=== PATIENT | female | born 1930 | race Caucasian/White ===

== ENCOUNTER 2016-09-06 16:59 | Inpatient (IN) | payer MEDICARE, OTHER ==
[~2016-09-06] VITALS: Ht 162.6 cm; Wt 56.4 kg
[2016-09-06 17:01] VITALS: BP 183/111; PULSE 99; RESP 16; TEMP 97.5; O2SAT 93
--- NOTE | 2016-09-06 18:18 | PD ---
HPI Chief Complaint: Respiratory Distress Time Seen by Provider: 18:18 Travel History International Travel<30 days: No Contact w/Intl Traveler<30days: No Traveled to known affect area: No History of Present Illness HPI 85-year-old female came to the emergency room with history of shortness of breath that was progressively worsening over past few weeks. Patient is from out of town and currently staying with her daughter who has been taking care of her. 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 As per the daughter she also noticed that her both feet were swollen with the shortness of breath. She took a extra dose of Lasix this morning and when she did not feel better asked her daughter to bring her to the emergency room. No history of fever or chills. No history of chest pain. Patient was hypertensive in triage and on the monitor showed an irregularly irregular rhythm that was in 120s. Patient does not have a history of atrial fibrillation that she knows of. PFSH Past Medical History Narrative Medical List of her past medical history as reviewed from the nursing note. Cardiovascular Problems: Yes Cerebrovascular Accident: Yes Hypertension: Yes ?: Not Past Surgical History Appendectomy: Yes Social History Alcohol Use: No Tobacco Use: No Allergies-Medications (Allergen,Severity, Reaction): Coded Allergies: Morphine (Verified Allergy, Severe, Hives, 09/06/16) Comments List of her allergies reviewed from the nursing note. Reported Meds & Prescriptions Reported Meds & Active Scripts Active Narrative Medication Awaiting for the nurse to do the medical reconciliation. Review of Systems Except as stated in HPI: all other systems reviewed are Neg Physical Exam Narrative GENERAL: Awake, alert, elderly and frail, moderate distress SKIN: Warm and dry. HEAD: Atraumatic. Normocephalic. EYES: Pupils equal and round. No scleral icterus. No injection or drainage. ENT: No nasal bleeding or discharge. Mucous membranes pink and moist. NECK: Trachea midline. No JVD. CARDIOVASCULAR: Regular rate and rhythm. No murmur appreciated. RESPIRATORY: No accessory muscle use. Diminished air entry in the right base GASTROINTESTINAL: Abdomen soft, non-tender, nondistended. Hepatic and splenic margins not palpable. MUSCULOSKELETAL: No obvious deformities. No clubbing. No cyanosis. Bilateral pedal edema. NEUROLOGICAL: Awake and alert. No obvious cranial nerve deficits. Motor grossly within normal limits. Normal speech. PSYCHIATRIC: Appropriate mood and affect; insight and judgment normal. Data Data Last Documented VS Vital Signs Date Time Temp Pulse Resp B/P Pulse Ox O2 Delivery O2 Flow Rate FiO2 09/06/16 19:14 110 22 168/122 95 Room Air 09/06/16 17:01 97.5 Orders Complete Blood Count With Diff (09/06/16 18:31) Comprehensive Metabolic Panel (09/06/16 18:31) B-Type Natriuretic Peptide (09/06/16 18:31) Prothrombin Time / Inr (Pt) (09/06/16 18:31) Magnesium (Mg) (09/06/16 18:31) Troponin I (09/06/16 18:31) Urinalysis - C+S If Indicated (09/06/16 18:31) Iv Access Insert/Monitor (09/06/16 18:31) Electrocardiogram (09/06/16 18:31) Ecg Monitoring (09/06/16 18:31) Oximetry (09/06/16 18:31) Oxygen Administration (09/06/16 18:31) Chest, Single Ap (09/06/16 18:31) Sodium Chloride 0.9% Flush (Ns Flush) (09/06/16 18:45) Furosemide Inj (Lasix Inj) (09/06/16 18:45) Diltiazem Inj (Cardizem Inj) (09/06/16 18:45) Vital Signs (Adult) Q15MX4,Q4H (09/06/16 19:29) Hospital Nurse / Telemetry (09/06/16 19:29) Cardiac Rhythm GARY.Q8H (09/06/16 19:29) ^ Notify Dr: Other (09/06/16 19:29) Diltiazem Inj (Cardizem Inj) (09/06/16 19:30) Admit Order (Ed Use Only) (09/06/16 ) Labs Laboratory Tests Test 09/06/16 18:50 White Blood Count 10.5 TH/MM3 Red Blood Count 5.96 MIL/MM3 Hemoglobin 17.1 GM/DL Hematocrit 51.2 % Mean Corpuscular Volume 86.0 FL Mean Corpuscular Hemoglobin 28.6 PG Mean Corpuscular Hemoglobin 33.3 % Concent Red Cell Distribution Width 16.9 % Platelet Count 202 TH/MM3 Mean Platelet Volume 10.2 FL Neutrophils (%) (Auto) 58.6 % Lymphocytes (%) (Auto) 27.0 % Monocytes (%) (Auto) 10.9 % Eosinophils (%) (Auto) 2.4 % Basophils (%) (Auto) 1.1 % Neutrophils # (Auto) 6.1 TH/MM3 Lymphocytes # (Auto) 2.8 TH/MM3 Monocytes # (Auto) 1.1 TH/MM3 Eosinophils # (Auto) 0.2 TH/MM3 Basophils # (Auto) 0.1 TH/MM3 CBC Comment DIFF FINAL Differential Comment Prothrombin Time 12.1 SEC Prothromb Time International 1.1 RATIO Ratio Urine Color YELLOW Urine Turbidity CLEAR Urine pH 6.5 Urine Specific [place] 1.008 Urine Protein TRACE mg/dL Urine Glucose (UA) NEG mg/dL Urine Ketones NEG mg/dL Urine Occult Blood TRACE Urine Nitrite NEG Urine Bilirubin NEG Urine Urobilinogen 2.0 MG/DL Urine Leukocyte Esterase TRACE Urine RBC 2 /hpf Urine WBC 1 /hpf Urine Squamous Epithelial <1 /hpf Cells Urine Hyaline Casts 1 /lpf Microscopic Urinalysis Comment CULT NOT INDICATED Sodium Level 130 MEQ/L Potassium Level 3.6 MEQ/L Chloride Level 89 MEQ/L Carbon Dioxide Level 30.1 MEQ/L Anion Gap 11 MEQ/L Blood Urea Nitrogen 11 MG/DL Creatinine 0.99 MG/DL Estimat Glomerular Filtration 54 ML/MIN Rate Random Glucose 104 MG/DL Calcium Level 9.0 MG/DL Magnesium Level 1.8 MG/DL Total Bilirubin 2.5 MG/DL Aspartate Amino Transf 35 U/L (AST/SGOT) Alanine Aminotransferase 22 U/L (ALT/SGPT) Alkaline Phosphatase 137 U/L Troponin I 0.04 NG/ML B-Type Natriuretic Peptide 461 PG/ML Total Protein 7.7 GM/DL Albumin 3.8 GM/DL Thyroid Stimulating Hormone 2.730 uIU/ML 3rd Gen [facility] Medical Decision Making Medical Screen Exam Complete: Yes Emergency Medical Condition: Yes Medical Record Reviewed: Yes Differential Diagnosis Congestive heart failure, new onset atrial fibrillation, ACS, pneumonia Narrative Course 7:01 PM awaiting for the blood test results. Patient has been given a dose of IV Lasix. I have explained to the patient and her daughter that the patient will require admission and they agree and understand. Case was signed over to the oncoming ER physician. Procedures EKG Prior to Arrival: Montserrat Jalloh MD Sep 06, 2016 18:18
[2016-09-06] MEDS ORDERED: SODIUM CHLORIDE 0.9% FLUSH 5 ML FLUSH IVF PRN (18:45)
[2016-09-06] MEDS ORDERED: FUROSEMIDE 40 MG/4 ML VIAL IVP ONE (18:45)
[2016-09-06] MEDS ORDERED: DILTIAZEM HCL 25 MG/5 ML VIAL IV ONE (18:45)
[2016-09-06 19:07] LABS: BLOOD, URINE TRACE (NEG); GLUCOSE,URINE NEG (NEG); HYALINE CAST, URINE 1 /lpf (RARE); KETONE, URINE NEG (NEG); NITRITE,URINE NEG (NEG); PH, URINE 6.5 (5.0-8.5); SQUAMOUS EPITHELIAL CELL URINE <1 /hpf (0-5); URINE COLOR YELLOW (YELLW/STRAW)
[2016-09-06 19:11] LABS: COMMENT (UR) CULT NOT INDICATED; CULTURE IF INDICATED CULT NOT INDICATED
[2016-09-06 19:12] LABS: AUTOMATED NEUTROPHIL # 6.1 TH/MM3 (1.8-7.7); BASOPHIL # 0.1 TH/MM3 (0-0.2); BASOPHIL % 1.1 % (0.0-2.0); EOSINOPHIL # 0.2 TH/MM3 (0-0.4); EOSINOPHIL % 2.4 % (0.0-4.0); HEMATOCRIT 51.2 % (35.0-46.0); HEMO FLAGS DIFF FINAL; LYMPHOCYTE # 2.8 TH/MM3 (1.0-4.8); MEAN CORPUSCULAR HEMOGLOBIN 28.6 PG (27.0-34.0); MEAN CORPUSCULAR HGB CONC 33.3 % (32.0-36.0); MONO % 10.9 % (0.0-8.0); NEUT % 58.6 % (16.0-70.0); PLATELET COUNT 202 TH/MM3 (150-450); RED BLOOD COUNT 5.96 MIL/MM3 (4.00-5.30); RED CELL DISTRIBUTION WIDTH 16.9 % (11.6-17.2); WHITE BLOOD COUNT 10.5 TH/MM3 (4.0-11.0)
[2016-09-06 19:14] VITALS: BP 168/122; PULSE 110; RESP 22; O2SAT 95
[2016-09-06 19:26] LABS: INTERNATIONAL NORMALIZED RATIO 1.1 RATIO; PROTHROMBIN TIME - PATIENT 12.1 SEC (9.8-11.6)
--- NOTE | 2016-09-06 19:27 | RADRPT ---
EXAM DATE/TIME: 09/06/2016 18:54 [facility] COMPARISON: No previous studies available for comparison. INDICATIONS : SOB MEDICAL HISTORY : Hypertension. SURGICAL HISTORY : None. ENCOUNTER: Initial ACUITY: 1 day PAIN SCORE: 0/10 LOCATION: chest FINDINGS: Bilateral pleural effusions, right greater than left with associated basilar consolidative changes. C ardiac silhouette is largely obscured. CONCLUSION: Bilateral effusions. Thomas Brennan MD on September 06, 2016 at 19:25 Board Certified Radiologist. This report was verified electronically.
[2016-09-06 19:28] LABS: ANION GAP 11 MEQ/L (5-15); AST (GOT) 35 U/L (15-37); BICARBONATE 30.1 MEQ/L (21.0-32.0); BLOOD UREA NITROGEN 11 MG/DL (7-18); CHLORIDE 89 MEQ/L (98-107); GLOMERULAR FILTRATION RATE 54 ML/MIN (>89); MAGNESIUM 1.8 MG/DL (1.5-2.5); POTASSIUM 3.6 MEQ/L (3.5-5.1); SODIUM (NA) 130 MEQ/L (136-145)
[2016-09-06] MEDS ORDERED: DILTIAZEM INJ 125 MG in SODIUM CHLORIDE 0.9% INJ 100 ML IV SCH (19:30)
[2016-09-06 19:33] LABS: ALKALINE PHOSPHATASE 137 U/L (45-117); ALT (GPT) 22 U/L (10-53); TOTAL BILIRUBIN ADULT 2.5 MG/DL (0.2-1.0)
[2016-09-06] MEDS ORDERED: SODIUM CHLORIDE 0.9% FLUSH 5 ML FLUSH FLUSH PRN (20:00)
[2016-09-06] MEDS ORDERED: POTASSIUM CHLORIDE 25 MEQ EFFERVESCENT TAB PO ONE (20:00)
[2016-09-06] MEDS ORDERED: NALOXONE HCL 0.4 MG/ML AMP IV PRN (20:00)
--- NOTE | 2016-09-06 20:12 | PD ---
Data Data Last Documented VS Vital Signs Date Time Temp Pulse Resp B/P Pulse Ox O2 Delivery O2 Flow Rate FiO2 09/06/16 19:14 110 22 168/122 95 Room Air 09/06/16 17:01 97.5 Orders Complete Blood Count With Diff (09/06/16 18:31) Comprehensive Metabolic Panel (09/06/16 18:31) B-Type Natriuretic Peptide (09/06/16 18:31) Prothrombin Time / Inr (Pt) (09/06/16 18:31) Magnesium (Mg) (09/06/16 18:31) Troponin I (09/06/16 18:31) Urinalysis - C+S If Indicated (09/06/16 18:31) Iv Access Insert/Monitor (09/06/16 18:31) Electrocardiogram (09/06/16 18:31) Ecg Monitoring (09/06/16 18:31) Oximetry (09/06/16 18:31) Oxygen Administration (09/06/16 18:31) Chest, Single Ap (09/06/16 18:31) Sodium Chloride 0.9% Flush (Ns Flush) (09/06/16 18:45) Furosemide Inj (Lasix Inj) (09/06/16 18:45) Diltiazem Inj (Cardizem Inj) (09/06/16 18:45) Vital Signs (Adult) Q15MX4,Q4H (09/06/16 19:29) Webmaster / Telemetry (09/06/16 19:29) Cardiac Rhythm GARY.Q8H (09/06/16 19:29) ^ Notify Dr: Other (09/06/16 19:29) Diltiazem Inj (Cardizem Inj) (09/06/16 19:30) Admit Order (Ed Use Only) (09/06/16 ) Labs Laboratory Tests Test 09/06/16 18:50 White Blood Count 10.5 TH/MM3 Red Blood Count 5.96 MIL/MM3 Hemoglobin 17.1 GM/DL Hematocrit 51.2 % Mean Corpuscular Volume 86.0 FL Mean Corpuscular Hemoglobin 28.6 PG Mean Corpuscular Hemoglobin 33.3 % Concent Red Cell Distribution Width 16.9 % Platelet Count 202 TH/MM3 Mean Platelet Volume 10.2 FL Neutrophils (%) (Auto) 58.6 % Lymphocytes (%) (Auto) 27.0 % Monocytes (%) (Auto) 10.9 % Eosinophils (%) (Auto) 2.4 % Basophils (%) (Auto) 1.1 % Neutrophils # (Auto) 6.1 TH/MM3 Lymphocytes # (Auto) 2.8 TH/MM3 Monocytes # (Auto) 1.1 TH/MM3 Eosinophils # (Auto) 0.2 TH/MM3 Basophils # (Auto) 0.1 TH/MM3 CBC Comment DIFF FINAL Differential Comment Prothrombin Time 12.1 SEC Prothromb Time International 1.1 RATIO Ratio Urine Color YELLOW Urine Turbidity CLEAR Urine pH 6.5 Urine Specific [place] 1.008 Urine Protein TRACE mg/dL Urine Glucose (UA) NEG mg/dL Urine Ketones NEG mg/dL Urine Occult Blood TRACE Urine Nitrite NEG Urine Bilirubin NEG Urine Urobilinogen 2.0 MG/DL Urine Leukocyte Esterase TRACE Urine RBC 2 /hpf Urine WBC 1 /hpf Urine Squamous Epithelial <1 /hpf Cells Urine Hyaline Casts 1 /lpf Microscopic Urinalysis Comment CULT NOT INDICATED Sodium Level 130 MEQ/L Potassium Level 3.6 MEQ/L Chloride Level 89 MEQ/L Carbon Dioxide Level 30.1 MEQ/L Anion Gap 11 MEQ/L Blood Urea Nitrogen 11 MG/DL Creatinine 0.99 MG/DL Estimat Glomerular Filtration 54 ML/MIN Rate Random Glucose 104 MG/DL Calcium Level 9.0 MG/DL Magnesium Level 1.8 MG/DL Total Bilirubin 2.5 MG/DL Aspartate Amino Transf 35 U/L (AST/SGOT) Alanine Aminotransferase 22 U/L (ALT/SGPT) Alkaline Phosphatase 137 U/L Troponin I 0.04 NG/ML B-Type Natriuretic Peptide 461 PG/ML Total Protein 7.7 GM/DL Albumin 3.8 GM/DL [facility] Supervised Visit with REBECCA: No Narrative Course Assumed care patient from Dr. Nur. 85-year-old woman, hypertension hyperlipidemia and a history of stroke, presents with 2-3 days worsening shortness of breath, lower extremity edema, pleural effusions on her chest x-ray, new onset A. fib. Responded well to diltiazem, Lasix. Patient will be admitted for further evaluation and treatment. Diagnosis Primary Impression: Atrial fibrillation with RVR Additional Impression: Volume overload Qualified Code: E87.70 - Hypervolemia, unspecified hypervolemia type Admitting Information Admitting Physician Requests: Admit Bob Chan MD Sep 06, 2016 20:12
[2016-09-06 20:34] VITALS: BP 145/93; PULSE 89; RESP 22; O2SAT 94
[2016-09-06] MEDS ORDERED: POTASSIUM CHLOR 20 MEQ PREMIX 100 ML IV ONE ×2 (21:30→22:15)
--- NOTE | 2016-09-06 21:55 | HHI.HP ---
HPI Service [facility] Primary Care Physician Unknown Admission Diagnosis [place] RVR, volume overload, CHF Diagnoses: (1) Atrial fibrillation with RVR (2) Congestive heart failure (3) Hypertension (4) Lower extremity edema Chief Complaint: shortness of breath and bilateral pedal edema Travel History International Travel<30 Days: No Contact w/Intl Traveler <30 Da: No Traveled to Known Affected Are: No History of Present Illness Mrs. Hood is an 85 year-old female with a past medical history of hypertension and CVA who presented to the ER on 09/06/2016 with progressively worsening shortness of breath with lower extremity edema. The patient's daughter was giving her Lasix (which she frequently does not take because of inconvenience of frequent urination) for the past 2 days with no increase in urination and no decrease in peripheral edema. 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 CXR showed bilateral effusions. Hyponatremia on labs with sodium 130, T. Bili elevated at 2.5, Troponin I 0.04 and BNP 461. The patient is seen in the ER with her daughter at the bedside. She reports that she has been experiencing shortness of breath that is worse with exertion since June but it has been increasing in severity. She denies any accompanying cough or sputum production. She has had no recent long car or airplane rides. She states she has been having nausea when eating and dry heaves. Until about a year ago, she was living independently and able to perform all of her own ADLs. Now she has to live with part of the time with her son ([place]) and part of the time with her daughter (C[place]on) so that they can share the job of caring for their mother. She has had an unintentional weight loss of about 40 pounds since last September that she has recently gained some of that weight back and has had an increase in appetite lately. There is question of some thyroid dysfunction that was being evaluated by her primary care physician in [place] (where her son lives). She has never had a colonoscopy or EGD. 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 Denies CAD, CHF, diabetes mellitus, atrial fibrillation, asthma, COPD, no liver probs, kidney probs, no seizures, no cancer Last stress test stress test "many" years ago but at least > 2 years ago. 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) Respiratory: COMPLAINS OF: Shortness of breath, DENIES: Cough, Sputum production Cardiovascular: COMPLAINS OF: Lower Extremity Edema, Orthopnea, DENIES: Chest pain Gastrointestinal: COMPLAINS OF: Nausea, DENIES: Black stools, Bloody stools, Vomiting Genitourinary: COMPLAINS OF: Urinary frequency (due to lasix), Urinary incontinence (when on lasix) Musculoskeletal: COMPLAINS OF: Muscle aches (calf muscles) Neurologic: COMPLAINS OF: Headache (back of head), Tremor Other 10 point review of systems performed and aside from what is mentioned above or in history of present illness, systems otherwise negative. Past Family Social History Past Medical History Optic CVA - 2 - 3 years ago Intention tremors Hypertension . Past Surgical History Abdominal surgery 1980s Appendectomy . Reported Medications Metoprolol 100 mg BID Diovan/HCT 320/25 mg 1/2 tablet daily Lasix 20 mg daily Clonidine 0.1 mg q8h PRN - takes 1/2 pill at night for anxiety Allergies: Coded Allergies: Morphine (Verified Allergy, Severe, Hives, 09/06/16) Active Ordered Medications Current Medications IV Flush (NS Flush) 2 ml UNSCH PRN IVF FLUSH AFTER USING IV ACCESS; Start 09/06 at 18:45; Stop 09/06/16 at 20:03; Status DC Furosemide (Lasix Inj) 40 mg ONCE ONCE IVP Last administered on 09/06/16 19: 21; Start 09/06/16 at 18:45; Stop 09/06/16 at 18:46; Status DC Diltiazem HCl 15 mg 15 mg ONCE ONCE IV Last administered on 09/06/16 19:17; Start 09/06/16 at 18:45; Stop 09/06/16 at 18:46; Status DC Diltiazem HCl/ Sodium Chloride (Cardizem Inj/NS Inj) 125 ml @ 0 mls/hr TITRATE IV ; Start 09/06/16 at 19:30 IV Flush (NS Flush) 2 ml UNSCH PRN FLUSH FLUSH AFTER USING IV ACCESS; Start at 20:00 IV Flush (NS Flush) 2 ml BID FLUSH ; Start 09/06/16 at 21:00 Naloxone HCl (Narcan Inj) 0.4 mg UNSCH PRN IV SEE LABEL COMMENTS; Start at 20:00 Furosemide (Lasix Inj) 40 mg BID@09,18 IV PUSH ; Start 09/07/16 at 09:00 Potassium Bicarb/ Potassium Chloride (K-Lyte Cl Eff) 50 meq ONCE ONCE PO Last administered on 09/06/16t 20:33; Start 09/06/16 at 20:00; Stop 09/06/16 at 20:02; Status DC Family History Son from complications related to CAD 2-3 years ago . Social History Tobacco: quit smoking age [age] years old Alcohol: none Illicit Drugs: none . Physical Exam Vital Signs Vital Signs Date Time Temp Pulse Resp B/P Pulse Ox O2 Delivery O2 Flow Rate FiO2 09/06/16 20:34 89 22 145/93 94 Room Air 09/06/16 20:23 85 22 94 09/06/16 19:14 110 22 168/122 95 Room Air 09/06/16 17:01 97.5 99 16 183/111 93 Room Air Physical Exam GENERAL: This is a thin, elderly, frail-appearing female patient, in no apparent distress. SKIN: No rashes, ecchymoses or lesions. Cool and dry. HEAD: Atraumatic. Normocephalic. EYES: No scleral icterus. No injection or drainage. ENT: Nose without bleeding, purulent drainage. NECK: Trachea midline. No JVD or lymphadenopathy. CARDIOVASCULAR: Irregularly irregular rate and rhythm without murmurs, gallops, or rubs. Trace lower extremity edema noted. Bilateral calf pain. RESPIRATORY: Breath sounds diminished bibasilarly, equal bilaterally. No wheezes , rales, or rhonchi. GASTROINTESTINAL: Abdomen soft, non-tender, nondistended. No guarding. MUSCULOSKELETAL: Extremities without clubbing, cyanosis. NEUROLOGICAL: Awake and alert. Motor and sensory grossly within normal limits. Normal speech. .. Laboratory Laboratory Tests Test 09/06/16 18:50 White Blood Count 10.5 Red Blood Count 5.96 Hemoglobin 17.1 Hematocrit 51.2 Mean Corpuscular Volume 86.0 Mean Corpuscular Hemoglobin 28.6 Mean Corpuscular Hemoglobin 33.3 Concent Red Cell Distribution Width 16.9 Platelet Count 202 Mean Platelet Volume 10.2 Neutrophils (%) (Auto) 58.6 Lymphocytes (%) (Auto) 27.0 Monocytes (%) (Auto) 10.9 Eosinophils (%) (Auto) 2.4 Basophils (%) (Auto) 1.1 Neutrophils # (Auto) 6.1 Lymphocytes # (Auto) 2.8 Monocytes # (Auto) 1.1 Eosinophils # (Auto) 0.2 Basophils # (Auto) 0.1 CBC Comment DIFF FINAL Differential Comment Prothrombin Time 12.1 Prothromb Time International 1.1 Ratio Urine Color YELLOW Urine Turbidity CLEAR Urine pH 6.5 Urine Specific [place] 1.008 Urine Protein TRACE Urine Glucose (UA) NEG Urine Ketones NEG Urine Occult Blood TRACE Urine Nitrite NEG Urine Bilirubin NEG Urine Urobilinogen 2.0 Urine Leukocyte Esterase TRACE Urine RBC 2 Urine WBC 1 Urine Squamous Epithelial <1 Cells Urine Hyaline Casts 1 Microscopic Urinalysis Comment CULT NOT INDICATED Sodium Level 130 Potassium Level 3.6 Chloride Level 89 Carbon Dioxide Level 30.1 Anion Gap 11 Blood Urea Nitrogen 11 Creatinine 0.99 Estimat Glomerular Filtration 54 Rate Random Glucose 104 Calcium Level 9.0 Magnesium Level 1.8 Total Bilirubin 2.5 Aspartate Amino Transf 35 (AST/SGOT) Alanine Aminotransferase 22 (ALT/SGPT) Alkaline Phosphatase 137 Troponin I 0.04 B-Type Natriuretic Peptide 461 Total Protein 7.7 Albumin 3.8 Result Diagram: 09/06/16184909/06/161849 Imaging Last Impressions Chest X-Ray 09/06/16 1831 Signed Impressions: Service Date/Time: August 18:54 - CONCLUSION: Bilateral effusions. Thomas Brennan MD . Assessment and Plan Problem List: (1) Atrial fibrillation with RVR ICD Code: I48.91 Status: Acute (2) Congestive heart failure ICD Code: I50.9 Status: Acute (3) Hypertension ICD Code: I10 Status: Chronic (4) Lower extremity edema ICD Code: R60.0 Status: Acute (5) Hyponatremia ICD Code: E87.1 Status: Acute (6) Hyperbilirubinemia ICD Code: E80.6 Status: Acute Assessment and Plan Mrs. Hood is an 85 year-old female with a past medical history of hypertension and stroke who presented to the ER on 09/06/2016 with progressively worsening shortness of breath with lower extremity edema. 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 CXR showed bilateral effusions. Hyponatremia on labs with sodium 130, T. Bili elevated at 2.5, Troponin I 0.04 and BNP 461. Atrial fibrillation with RVR, new onset - rate controlled following Cardizem 15 mg IV push in ER - Consult cardiology to evaluate new onset A. fib and new onset CHF - Continuous cardiac telemetry Congestive heart failure, new onset - Troponin I 0.04 - BNP 461 - Check serial EKGs and cardiac enzymes to rule out ACS as contributing factor - Lasix 40 mg IV push twice a day - 2-D echocardiogram - Strict intake and output every shift - Monitor vital signs every 4 hours - Check magnesium level - Heart healthy diet - Physical therapy to prevent debilitation Left lower extremity swelling Calf pain bilaterally - Bilateral doppler u/s of lower extremities to r/o DVT Hypertension - recommended patient to d/c PRN clonidine - continue home diovan/hct - monitor trends in blood pressure readings and adjust medications as indicated Hyponatremia - sodium 130 - Recheck BMP in a.m. and follow trends Hyperbilirubinemia - T. Bili elevated at 2.5 - Recheck in a.m.; follow trends DVT prophylaxis - Lovenox 50 mg therapeutic dose ordered; wait for LE u/s results to determine if therapeutic or prophylactic dose is needed Written by Luba Lima, acting as scribe for Dr. Pike on 09/06/16 at 21:21. All or portions of this note were transcribed by scribe [Luba Lima]. I, Dr. Kirstin Pike personally performed the history, physical exam, and medical decision making; and confirmed the accuracy of the information in the transcribed note. Authenticated by Dr. Kirstin Pike on 09/06/16 at 2121 Discussed Condition With ER physician, patient, and patient's daughter . Physician Certification 2 Midnight Certification Type: Admission for Inpatient Services Order for Inpatient Services The services are ordered in accordance with Medicare regulations or non- Medicare payer requirements, as applicable. In the case of services not specified as inpatient-only, they are appropriately provided as inpatient services in accordance with the 2-midnight benchmark. Estimated LOS (days): 3 days is the estimated time the patient will need to remain in the hospital, assuming treatment plan goals are met and no additional complications. Post-Hospital Plan: Not yet determined Problem Qualifiers (1) Lower extremity edema: Qualified Code: R60.0 - Edema of left lower extremity Luba Lima Sep 06, 2016 21:55 Kirstin Pike MD Oct 17, 2016 07:49
[2016-09-06] MEDS: SODIUM CHLORIDE 0.9% FLUSH 5 ML FLUSH FLUSH SCH (22:39)
[2016-09-06] MEDS ORDERED: FUROSEMIDE 40 MG/4 ML VIAL IV PUSH ONE (23:30)
[2016-09-06] MEDS ORDERED: POTASSIUM CHLORIDE 20 MEQ CONTROLLED RELEASE TAB PO ONE (23:30)
[2016-09-06] MEDS ORDERED: ENOXAPARIN SODIUM 60 MG/0.6 ML SYRINGE SQ ONE (23:45)
[2016-09-07] VITALS (15 sets, daily range): BP systolic 103–181; BP diastolic 63–103; PULSE 78–130; RESP 15–18; TEMP 98.2; O2SAT 91–99
[2016-09-07 05:19] LABS: AUTOMATED NEUTROPHIL # 8.2 TH/MM3 (1.8-7.7); BASOPHIL # 0.1 TH/MM3 (0-0.2); EOSINOPHIL # 0.1 TH/MM3 (0-0.4); HEMATOCRIT 50.9 % (35.0-46.0); HEMO FLAGS DIFF FINAL; LYMPHOCYTE # 2.6 TH/MM3 (1.0-4.8); MEAN CORPUSCULAR HEMOGLOBIN 28.6 PG (27.0-34.0); MEAN CORPUSCULAR HGB CONC 34.1 % (32.0-36.0); MONO % 11.7 % (0.0-8.0); NEUT % 65.3 % (16.0-70.0); PLATELET COUNT 216 TH/MM3 (150-450); RED BLOOD COUNT 6.07 MIL/MM3 (4.00-5.30); RED CELL DISTRIBUTION WIDTH 16.4 % (11.6-17.2); WHITE BLOOD COUNT 12.5 TH/MM3 (4.0-11.0)
[2016-09-07] MEDS ORDERED: ONDANSETRON HCL 4 MG/2 ML VIAL IV PUSH PRN (05:30)
[2016-09-07] MEDS: DILTIAZEM 125 MG/NS 100 ML IV SCH ×2 (05:38)
[2016-09-07 05:55] LABS: ALT (GPT) 24 U/L (10-53); ANION GAP 11 MEQ/L (5-15); AST (GOT) 69 U/L (15-37); BLOOD UREA NITROGEN 8 MG/DL (7-18); CHLORIDE 87 MEQ/L (98-107); GLOMERULAR FILTRATION RATE 66 ML/MIN (>89); SODIUM (NA) 128 MEQ/L (136-145)
[2016-09-07 06:02] LABS: ALKALINE PHOSPHATASE 114 U/L (45-117); CREATINE KINASE 168 U/L (26-192); TOTAL BILIRUBIN ADULT 2.6 MG/DL (0.2-1.0)
[2016-09-07] MEDS ORDERED: MAGNESIUM HYDROXIDE SUSP 30 ML CUP PO PRN (09:00)
[2016-09-07] MEDS ORDERED: CALCIUM CARBONATE 500 MG CHEWABLE TAB CHEW PRN (09:00)
[2016-09-07] MEDS ORDERED: DOCUSATE SODIUM 50 MG/SENNA 8.6 MG TAB PO PRN (09:00)
[2016-09-07] MEDS ORDERED: ACETAMINOPHEN 325 MG TAB PO PRN (09:00)
[2016-09-07] MEDS ORDERED: ALUMINUM/MAGNESIUM/SIMETH 30 ML CUP PO PRN (09:00)
[2016-09-07] MEDS ORDERED: FUROSEMIDE 40 MG/4 ML VIAL IV PUSH SCH (09:00)
[2016-09-07] MEDS: SODIUM CHLORIDE 0.9% FLUSH 5 ML FLUSH FLUSH SCH ×2 (09:00→21:00)
[2016-09-07] MEDS ORDERED: DOCUSATE SODIUM 100 MG CAP PO PRN (09:00)
--- NOTE | 2016-09-07 09:12 | PD.CONS ---
HPI Service CV Consult Requested By Reason for Consult a-fib Primary Care Physician Unknown History of Present Illness Here with CVA and hypertension for lower extremity edema x 4 days. She denies any chest pain, shortness of breath or palpitations. Here she was found to have a-fib RVR. Other cardiac work up has been negative (Darius Jones) Review of Systems Consitutional: DENIES: Fatigue, Fever, Chills, Weight gain, Weight loss Eyes: DENIES: Amaurosis Fugax, Change in vision HEENT: DENIES: Lightheadedness, Change in hearing Respiratory: DENIES: See HPI, Cough, Snoring, Shortness of breath, Wheezing, Sputum production Cardiovascular: COMPLAINS OF: See HPI Gastrointestinal: DENIES: Nausea, Vomiting, Change in bowel habits, Reflux, Bloody stools, Melena Genitourinary: DENIES: Urinary incontinence, Difficulty voiding Integumentary: DENIES: Rash Neurologic: DENIES: Tingling or numbness, Memory problems, Poor Balance, Stroke symptoms Musculoskeletal: DENIES: Joint pain, Muscle pain, Limited range of motion, Back pain Psychiatric: DENIES: Anxiety, Depression, Sleep disturbances Hematologic: DENIES: Bruising tendencies, Bleeding tendencies Endocrine: DENIES: Weight gain, Weight loss, Thyroid disease (Darius Jones ) Past Family Social History Allergies: Coded Allergies: Morphine (Verified Allergy, Severe, Hives, 09/06/16) Past Medical History see HPI intention tremors Past Surgical History Abdominal surgery 1980s Appendectomy Reported Medications Metoprolol 100 mg BID Diovan/HCT 320/25 mg 1/2 tablet daily Lasix 20 mg daily Clonidine 0.1 mg q8h PRN - takes 1/2 pill at night for anxiet Family History noncontributory Social History denies smoking, alcohol or substance abuse (Darius Jones) Physical Exam Vital Signs Vital Signs Date Time Temp Pulse Resp B/P Pulse Ox O2 Delivery O2 Flow Rate FiO2 09/07/16 08:48 102 18 132/77 99 Room Air 09/07/16 07:01 101 18 168/98 96 Room Air 09/07/16 06:30 105 16 133/84 96 Nasal Cannula 2 09/07/16 06:15 111 15 155/85 96 Nasal Cannula 2 09/07/16 05:46 95 Nasal Cannula 2 09/07/16 05:45 120 16 152/75 91 Room Air 09/07/16 05:40 122 16 161/74 95 Room Air 09/07/16 05:00 130 18 181/103 95 Room Air 09/07/16 02:50 109 09/07/16 02:49 120 16 169/95 96 Room Air 09/07/16 00:07 112 18 145/92 95 Room Air 09/06/16 20:34 89 22 145/93 94 Room Air 09/06/16 20:23 85 22 94 09/06/16 19:14 110 22 168/122 95 Room Air 09/06/16 17:01 97.5 99 16 183/111 93 Room Air Physical Exam GENERAL: Well-nourished, well-developed patient in no apparent distress. NECK: No JVD. No carotid bruit. CARDIOVASCULAR: IR IR. S1/S2 no murmur, rub, or gallop. RESPIRATORY: No accessory muscle use. Clear to auscultation. Breath sounds equal bilaterally. GASTROINTESTINAL: Abdomen soft, non-tender, nondistended. MUSCULOSKELETAL: Extremities without clubbing, cyanosis, or edema. Laboratory Laboratory Tests Test 09/06/16 09/07/16 09/07/16 18:50 01:15 05:00 White Blood Count 10.5 12.5 Red Blood Count 5.96 6.07 Hemoglobin 17.1 17.4 Hematocrit 51.2 50.9 Mean Corpuscular Volume 86.0 84.0 Mean Corpuscular Hemoglobin 28.6 28.6 Mean Corpuscular Hemoglobin 33.3 34.1 Concent Red Cell Distribution Width 16.9 16.4 Platelet Count 202 216 Mean Platelet Volume 10.2 10.3 Neutrophils (%) (Auto) 58.6 65.3 Lymphocytes (%) (Auto) 27.0 21.0 Monocytes (%) (Auto) 10.9 11.7 Eosinophils (%) (Auto) 2.4 1.0 Basophils (%) (Auto) 1.1 1.0 Neutrophils # (Auto) 6.1 8.2 Lymphocytes # (Auto) 2.8 2.6 Monocytes # (Auto) 1.1 1.5 Eosinophils # (Auto) 0.2 0.1 Basophils # (Auto) 0.1 0.1 CBC Comment DIFF FINAL DIFF FINAL Differential Comment Prothrombin Time 12.1 Prothromb Time International 1.1 Ratio Urine Color YELLOW Urine Turbidity CLEAR Urine pH 6.5 Urine Specific [place] 1.008 Urine Protein TRACE Urine Glucose (UA) NEG Urine Ketones NEG Urine Occult Blood TRACE Urine Nitrite NEG Urine Bilirubin NEG Urine Urobilinogen 2.0 Urine Leukocyte Esterase TRACE Urine RBC 2 Urine WBC 1 Urine Squamous Epithelial <1 Cells Urine Hyaline Casts 1 Microscopic Urinalysis Comment CULT NOT INDICATED Sodium Level 130 128 Potassium Level 3.6 5.0 Chloride Level 89 87 Carbon Dioxide Level 30.1 30.0 Anion Gap 11 11 Blood Urea Nitrogen 11 8 Creatinine 0.99 0.83 Estimat Glomerular Filtration 54 66 Rate Random Glucose 104 101 Calcium Level 9.0 8.9 Magnesium Level 1.8 Total Bilirubin 2.5 2.6 Aspartate Amino Transf 35 69 (AST/SGOT) Alanine Aminotransferase 22 24 (ALT/SGPT) Alkaline Phosphatase 137 114 Troponin I 0.04 0.04 0.04 B-Type Natriuretic Peptide 461 Total Protein 7.7 7.3 Albumin 3.8 3.6 Thyroid Stimulating Hormone 2.730 3rd Gen Total Creatine Kinase 98 168 (Darius Jones) Result Diagram: 09/07/16 0500 09/07/16 0500 Assessment and Plan Problem List: (1) Atrial fibrillation with RVR (2) Congestive heart failure (3) Hyponatremia (4) Lower extremity edema Assessment and Plan From a CV standpoint we will embark on a heart rate control strategy. The onset of her a-fib is uncertain in the face of her being asymptomatic in this regard. We will get 2D echo and start Savaysa (Her CHADS-VASC is 7) Her Sodium is low and also of uncertain etiology. There is a right pleural effusion, bu not much in the way of pulmonary edema. Defer to hospitalist (Darius Jones) Assessment and Plan afib rvr - cardizem q6. convert to long acting when rate controlled. start anticoagulation. check 2d echo. hyponatremia - on lasix and HCTZ. hold diuretics for now. intravascularly appears close to euvolemic. No JVD. minimal edema. (Jarad,Bob Rasheed MD) Problem Qualifiers (1) Lower extremity edema: Qualified Code: R60.0 - Edema of left lower extremity Darius Jones Sep 07, 2016 09:12 Bob Abraham MD Sep 07, 2016 09:40
[2016-09-07] MEDS ORDERED: METO100T PO (09:23)
[2016-09-07] MEDS ORDERED: VALS160T4 PO (09:26)
[2016-09-07] MEDS ORDERED: FURO1TAB62 PO (09:26)
[2016-09-07] MEDS ORDERED: CLON0.1T PO (09:26)
--- NOTE | 2016-09-07 09:34 | HHI.PR ---
Subjective Remarks Follow-up heart failure. Improving shortness of breath. Denies headache or dizziness. Patient takes Lopressor 100 mg twice a day, Lasix 20 mg daily and valsartan/hydrochloric acid 320/25 1/2 a pill a day. Discussed with cardiology and RN who will update medication list Objective Vitals Vital Signs Date Time Temp Pulse Resp B/P Pulse Ox O2 Delivery O2 Flow Rate FiO2 09/07/16 08:48 102 18 132/77 99 Room Air 09/07/16 07:01 101 18 168/98 96 Room Air 09/07/16 06:30 105 16 133/84 96 Nasal Cannula 2 09/07/16 06:15 111 15 155/85 96 Nasal Cannula 2 09/07/16 05:46 95 Nasal Cannula 2 09/07/16 05:45 120 16 152/75 91 Room Air 09/07/16 05:40 122 16 161/74 95 Room Air 09/07/16 05:00 130 18 181/103 95 Room Air 09/07/16 02:50 109 09/07/16 02:49 120 16 169/95 96 Room Air 09/07/16 00:07 112 18 145/92 95 Room Air 09/06/16 20:34 89 22 145/93 94 Room Air 09/06/16 20:23 85 22 94 09/06/16 19:14 110 22 168/122 95 Room Air 09/06/16 17:01 97.5 99 16 183/111 93 Room Air I/O 09/06/16 09/06/16 09/06/16 09/07/16 09/07/16 09/07/16 07:00 15:00 23:00 07:00 15:00 23:00 Output Total 1400 ml Balance -1400 ml Output Urine Total 1400 ml Result Diagram: 09/07/16 0500 09/07/16 0500 Imaging Last Impressions Chest X-Ray 09/06/16 1831 Signed Impressions: Service Date/Time: August 18:54 - CONCLUSION: Bilateral effusions. Thomas Brennan MD Objective Remarks GENERAL: This is a thin, elderly, frail-appearing female patient, in no apparent distress. SKIN: No rashes, ecchymoses or lesions. Cool and dry. HEAD: Atraumatic. Normocephalic. EYES: No scleral icterus. No injection or drainage. ENT: Nose without bleeding, purulent drainage. NECK: Trachea midline. No JVD or lymphadenopathy. CARDIOVASCULAR: Irregularly irregular rate and rhythm without murmurs, gallops, or rubs. Bilateral extremity pitting edema noted. RESPIRATORY: Breath sounds diminished bibasilarly, equal bilaterally. No wheezes , rales but with rhonchi left lung. GASTROINTESTINAL: Abdomen soft, non-tender, nondistended. No guarding. MUSCULOSKELETAL: Extremities without clubbing, cyanosis. NEUROLOGICAL: Awake and alert. Motor and sensory grossly within normal limits. Normal speech. Procedures None A/P Problem List: (1) Atrial fibrillation with RVR ICD Code: I48.91 Status: Acute (2) Congestive heart failure ICD Code: I50.9 Status: Acute (3) Hypertension ICD Code: I10 Status: Chronic (4) Lower extremity edema ICD Code: R60.0 Status: Acute (5) Hyponatremia ICD Code: E87.1 Status: Acute (6) Hyperbilirubinemia ICD Code: E80.6 Status: Acute Assessment and Plan Mrs. Hood is an 85 year-old female with a past medical history of hypertension and stroke who presented to the ER on 09/06/2016 with progressively worsening shortness of breath with lower extremity edema. 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 CXR showed bilateral effusions. Hyponatremia on labs with sodium 130, T. Bili elevated at 2.5, Troponin I 0.04 and BNP 461. Atrial fibrillation with RVR, new onset - rate controlled following Cardizem 15 mg IV push in ER. Wean and discontinue Cardizem drip keep heart rate less than 100 and, continue Cardizem by mouth and start anticoagulation patient with [id number] score of 7. Patient agrees - Consulted cardiology follow-up echocardiogram - Continuous cardiac telemetry Congestive heart failure, new onset . Improving - Troponin I 0.04 - BNP 461 - Check serial EKGs and cardiac enzymes to rule out ACS as contributing factor - Lasix 40 mg IV push twice a day - 2-D echocardiogram - Strict intake and output every shift - Monitor vital signs every 4 hours - Heart healthy diet - Physical therapy to prevent debilitation Left lower extremity swelling Calf pain bilaterally - Bilateral doppler u/s of lower extremities to r/o DVT Hypertension - recommended patient to d/c PRN clonidine -Restart home medications once confirmed - monitor trends in blood pressure readings and adjust medications as indicated Hyponatremia likely related to her Court eyes and - sodium 128 - Recheck BMP in a.m. and follow trends Hyperbilirubinemia - T. Bili elevated at 2.5 - Recheck in a.m.; follow trends Leukocytosis likely reactive. Repeat CBC in the morning DVT prophylaxis -Continue Savaysa Problem Qualifiers (1) Lower extremity edema: Qualified Code: R60.0 - Edema of left lower extremity Santo Kate MD Sep 07, 2016 09:34
[2016-09-07] MEDS ORDERED: EDOXABAN TOSYLATE 30 MG TAB PO SCH (10:00)
--- NOTE | 2016-09-07 11:34 | PD.CONS ---
Consult Service Palliative Care Consult Requested By Nancy CLARK . Primary Care Physician Unknown . Reason for Consultation a. To assist with evaluation and management of symptoms including: Dyspnea , fatigue b. To assist medical decision maker(s) with: better understanding of current medical conditions; weighing benefits/burdens of medical treatment options; making medical treatment decisions. . HPI History of Present Illness This 85-year-old female, with a past history of ocular stroke, carotid artery disease, and hypertension, has been declining slowly over the last several months. She has become weaker, has been using a walker since June 2016, has lost 20 pounds, and now has had some intermittent dyspnea over the past few weeks. The dyspnea worsened, and she presented to the emergency department on , where she was found to be hypertensive and tachycardic. Findings in the emergency department included: * Alert, mild dyspnea, leg edema * Atrial fibrillation with rapid ventricular response * Temp 97.5, pulse 99, respirations 16, blood pressure 183/111, oxygen saturation 93% on room air * White count 10.5, hemoglobin 17.1 * Sodium 1:30, creatinine 0.99, albumin 3.8 * Bilirubin 2.5, AST 35, ALT 22 * BNP 461, troponin 0.04 * Chest x-ray with bilateral pleural effusions, right greater than left The patient was admitted to the hospital, and diuresis was initiated. She has just had leg Doppler studies done, and is scheduled for cardiology evaluation including echocardiogram. She feels less dyspneic this morning, and her blood pressure is improved at 132/77. However, her sodium is a little lower at 128, and her bilirubin is 2.6, AST up to 69. Palliative Care was consulted to assist with symptom management, and to explore with the patient and her family the prognosis, as well as the benefits and burdens of the various treatment options. . Function/Cognitive Trajectory The patient has been declining over the past year. She was living completely independently a year ago, but became weaker over the summer, and by June 2016 has had to use a walker for ambulation. She gets dyspneic with minimal exertion, her appetite is decreased, and she has lost about 20 pounds over the last year. She has not had any falls, and she has not had problems with confusion or disorientation. . Review of Systems Constitutional: COMPLAINS OF: Fatigue, Weight loss Endocrine: DENIES: Polyuria Eyes: COMPLAINS OF: Vision loss (blind in the right eye, decreased vision in the left) Ears, nose, mouth, throat: DENIES: Epistaxis Cardiovascular: COMPLAINS OF: Dyspnea on Exertion, Lower Extremity Edema, DENIES: Chest pain, Palpitations, Syncope Gastrointestinal: DENIES: Bloody stools, Diarrhea, Vomiting Genitourinary: DENIES: Hematuria Musculoskeletal: DENIES: Back pain, Neck pain Integumentary: DENIES: Rash Hematologic/Lymphatics: DENIES: Bruising Immunologic/Allergic: DENIES: Urticaria Neurologic: DENIES: Headache, Localized weakness, Seizures Psychiatric: DENIES: Confusion, Hallucinations Past Family Social History Coded Allergies: Morphine (Verified Allergy, Severe, Hives, 09/06/16) Past Medical History * Congestive heart failure, new onset * Atrial fibrillation with rapid ventricular response, new onset * Hyponatremia * Hypertension * 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 . Past Surgical History * Abdominal surgery 1980s * Appendectomy . Reported Medications Metoprolol 100 mg BID Diovan/HCT 320/25 mg 1/2 tablet daily Lasix 20 mg daily Clonidine 0.1 mg q8h PRN . Current Medications Medications (Trade) Dose Ordered Sig/Crescencio Route Start Time Stop Time Status Last Admin (NS Flush) 2 ml UNSCH PRN FLUSH 09/06/16 20:00 (NS Flush) 2 ml BID FLUSH 09/06/16 21:00 09/07/16 09:00 (Narcan Inj) 0.4 mg UNSCH PRN IV 09/06/16 20:00 Ondansetron HCl 4 mg 4 mg Q6H PRN IV PUSH 09/07/16 05:30 09/07/16 05:39 (Cardizem Inj/NS Inj) 125 ml @ 0 mls/hr TITRATE IV 09/07/16 05:45 09/07/16 05:38 (Tylenol) 650 mg Q4H PRN PO 09/07/16 09:00 (Colace) 100 mg BID PRN PO 09/07/16 09:00 (Kim-Colace) 1 tab BID PRN PO 09/07/16 09:00 (Milk Of Magnesia Liq) 30 ml DAILY PRN PO 09/07/16 09:00 (Mag-Al Plus Susp Liq) 30 ml Q6H PRN PO 09/07/16 09:00 (Tums Chew) 1,000 mg TID PRN CHEW 09/07/16 09:00 (Savaysa) 30 mg DAILY PO 09/07/16 10:00 09/07/16 10:00 (Cardizem) 60 mg QID PO 09/07/16 13:00 Family History Son from complications related to CAD 2-3 years ago, and daughter at age 45 of a cerebral aneurysm. The patient's mother at age 92. . Substance Use Tobacco: None. Alcohol: None. Prescription med abuse: None. Illicits: None. . Psychosocial History The patient was born in [place], but has lived in [place] for 50 years. She has been twice, and had 2 sons (one is ) and 2 daughters (one is ) from her first marriage, and then had 2 sons and a daughter from her second marriage. She is still legally to her second , but they have reportedly been for many years, although "still friends." She lived alone and independently in her home for many years until she began declining last year. In the last few months, she has lived primarily with her son Wilmar in [facility], and part of the time here with her daughter Arlin. 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 .. Spiritual/Cultural Factors Spirituality is very important to the patient, and her background is Sikh. She does desire a visit from the [employer] barista, and a consult has been placed. . Living Will: Never completed Health Care Surrogate: Never completed Durable Power of Wood Machine Carver: Never completed Health Care Surrogate(s): At the time of the initial consultation, the patient is naming son Wilmar and daughter Arlin has healthcare surrogates. . Today's verbally stated goals: The patient wants to continue aggressive care at this time. She would allow resuscitation if there was a reasonable chance that she would be able to get off the ventilator and be able to "be at home, eat, and watch TV." If she was on a ventilator and her goals would not be achievable, she would want to be withdrawn from life support and allowed to peacefully. . Family/friends goals: The patient's daughter Arlin supports the patient's goals. . Ethical and Legal Issues There are no ethical issues that would impact her care or decision-making at this time. The patient has capacity for decision making. She has named son Wilmar and daughter Arlin as HCS. . Physical Exam Vital Signs Date Time Temp Pulse Resp B/P Pulse Ox O2 Delivery O2 Flow Rate FiO2 09/07/16 08:48 102 18 132/77 99 Room Air 09/07/16 07:01 101 18 168/98 96 Room Air 09/07/16 06:30 105 16 133/84 96 Nasal Cannula 2 09/07/16 06:15 111 15 155/85 96 Nasal Cannula 2 09/07/16 05:46 95 Nasal Cannula 2 09/07/16 05:45 120 16 152/75 91 Room Air 09/07/16 05:40 122 16 161/74 95 Room Air 09/07/16 05:00 130 18 181/103 95 Room Air 09/07/16 02:50 109 09/07/16 02:49 120 16 169/95 96 Room Air 09/07/16 00:07 112 18 145/92 95 Room Air 09/06/16 20:34 89 22 145/93 94 Room Air 09/06/16 20:23 85 22 94 09/06/16 19:14 110 22 168/122 95 Room Air 09/06/16 17:01 97.5 99 16 183/111 93 Room Air 09/06/16 09/07/16 19:00 07:00 Output Total 1400 ml Balance -1400 ml Output Urine Total 1400 ml Exam CONSTITUTIONAL/GENERAL: This is an elderly, frail patient, in no apparent distress. TUBES/LINES/DRAINS: Peripheral IV SKIN: No jaundice, rashes, or lesions. Ecchymoses on upper extremities. No wounds seen anteriorly. Skin temperature appropriate. Not diaphoretic. HEAD: Atraumatic. Normocephalic. EYES: Pupils unequal. Extraocular motions intact. No scleral icterus. No injection or drainage. Fundi not examined. ENT: Hearing grossly normal. Nose without bleeding or purulent drainage. Throat without visible erythema, exudates, masses, or lesions. NECK: Trachea midline. Supple, nontender. No palpable thyroid enlargement or nodularity. CARDIOVASCULAR: Irregularly irregular without murmurs, gallops, or rubs. No JVD. Peripheral pulses symmetric. RESPIRATORY/CHEST: Symmetric, unlabored respirations. Clear to auscultation. Breath sounds equal bilaterally, but quite diminished at the bases. No wheezes, rales, or rhonchi. GASTROINTESTINAL: Abdomen soft, non-tender, nondistended. No hepato-splenomegaly , or palpable masses. No guarding. Bowel sounds present. GENITOURINARY: Without palpable bladder distension. MUSCULOSKELETAL: Extremities without clubbing or cyanosis, but there is 1-2+ edema in both lower legs. No joint tenderness or effusion noted. No calf tenderness. No mottling or clubbing. LYMPHATICS: No palpable cervical or supraclavicular adenopathy. NEUROLOGICAL: Awake and alert. Motor and sensory grossly within normal limits. Follows commands. Cognitively sharp. Moves all extremities. PSYCHIATRIC: No obvious anxiety/depression. No apparent hallucinations or other psychotic thought process. . Diagnostic Tests Laboratory Laboratory Tests Test 09/06/16 09/07/16 09/07/16 18:50 01:15 05:00 White Blood Count 10.5 TH/MM3 12.5 TH/MM3 (4.0-11.0) (4.0-11.0) Red Blood Count 5.96 MIL/MM3 6.07 MIL/MM3 (4.00-5.30) (4.00-5.30) Hemoglobin 17.1 GM/DL 17.4 GM/DL (11.6-15.3) (11.6-15.3) Hematocrit 51.2 % 50.9 % (35.0-46.0) (35.0-46.0) Mean Corpuscular Volume 86.0 FL 84.0 FL (80.0-100.0) (80.0-100.0) Mean Corpuscular Hemoglobin 28.6 PG 28.6 PG (27.0-34.0) (27.0-34.0) Mean Corpuscular Hemoglobin 33.3 % 34.1 % Concent (32.0-36.0) (32.0-36.0) Red Cell Distribution Width 16.9 % 16.4 % (11.6-17.2) (11.6-17.2) Platelet Count 202 TH/MM3 216 TH/MM3 (150-450) (150-450) Mean Platelet Volume 10.2 FL 10.3 FL (7.0-11.0) (7.0-11.0) Neutrophils (%) (Auto) 58.6 % 65.3 % (16.0-70.0) (16.0-70.0) Lymphocytes (%) (Auto) 27.0 % 21.0 % (9.0-44.0) (9.0-44.0) Monocytes (%) (Auto) 10.9 % 11.7 % (0.0-8.0) (0.0-8.0) Eosinophils (%) (Auto) 2.4 % (0.0-4.0) 1.0 % (0.0-4.0) Basophils (%) (Auto) 1.1 % (0.0-2.0) 1.0 % (0.0-2.0) Neutrophils # (Auto) 6.1 TH/MM3 8.2 TH/MM3 (1.8-7.7) (1.8-7.7) Lymphocytes # (Auto) 2.8 TH/MM3 2.6 TH/MM3 (1.0-4.8) (1.0-4.8) Monocytes # (Auto) 1.1 TH/MM3 1.5 TH/MM3 (0-0.9) (0-0.9) Eosinophils # (Auto) 0.2 TH/MM3 0.1 TH/MM3 (0-0.4) (0-0.4) Basophils # (Auto) 0.1 TH/MM3 0.1 TH/MM3 (0-0.2) (0-0.2) CBC Comment DIFF FINAL DIFF FINAL Differential Comment Prothrombin Time 12.1 SEC (9.8-11.6) Prothromb Time International 1.1 RATIO Ratio Urine Color YELLOW (YELLW/STRAW) Urine Turbidity CLEAR (CLEAR) Urine pH 6.5 (5.0-8.5) Urine Specific [place] 1.008 (1.002-1.035) Urine Protein TRACE mg/dL (NEG-TRACE) Urine Glucose (UA) NEG mg/dL (NEG) Urine Ketones NEG mg/dL (NEG) Urine Occult Blood TRACE (NEG) Urine Nitrite NEG (NEG) Urine Bilirubin NEG (NEG) Urine Urobilinogen 2.0 MG/DL (LESS THAN 2.0) Urine Leukocyte Esterase TRACE (NEG) Urine RBC 2 /hpf (0-3) Urine WBC 1 /hpf (0-5) Urine Squamous Epithelial <1 /hpf (0-5) Cells Urine Hyaline Casts 1 /lpf (RARE) Microscopic Urinalysis Comment CULT NOT INDICATED Sodium Level 130 MEQ/L 128 MEQ/L (136-145) (136-145) Potassium Level 3.6 MEQ/L 5.0 MEQ/L (3.5-5.1) (3.5-5.1) Chloride Level 89 MEQ/L 87 MEQ/L (98-107) (98-107) Carbon Dioxide Level 30.1 MEQ/L 30.0 MEQ/L (21.0-32.0) (21.0-32.0) Anion Gap 11 MEQ/L (5-15) 11 MEQ/L (5-15) Blood Urea Nitrogen 11 MG/DL (7-18) 8 MG/DL (7-18) Creatinine 0.99 MG/DL 0.83 MG/DL (0.50-1.00) (0.50-1.00) Estimat Glomerular Filtration 54 ML/MIN (>89) 66 ML/MIN (>89) Rate Random Glucose 104 MG/DL 101 MG/DL (74-106) (74-106) Calcium Level 9.0 MG/DL 8.9 MG/DL (8.5-10.1) (8.5-10.1) Magnesium Level 1.8 MG/DL (1.5-2.5) Total Bilirubin 2.5 MG/DL 2.6 MG/DL (0.2-1.0) (0.2-1.0) Aspartate Amino Transf 35 U/L (15-37) 69 U/L (15-37) (AST/SGOT) Alanine Aminotransferase 22 U/L (10-53) 24 U/L (10-53) (ALT/SGPT) Alkaline Phosphatase 137 U/L 114 U/L (45-117) (45-117) Troponin I 0.04 NG/ML 0.04 NG/ML 0.04 NG/ML (0.02-0.05) (0.02-0.05) (0.02-0.05) B-Type Natriuretic Peptide 461 PG/ML (0-100) Total Protein 7.7 GM/DL 7.3 GM/DL (6.4-8.2) (6.4-8.2) Albumin 3.8 GM/DL 3.6 GM/DL (3.4-5.0) (3.4-5.0) Thyroid Stimulating Hormone 2.730 uIU/ML 3rd Gen (0.358-3.740) Total Creatine Kinase 98 U/L (26-192) 168 U/L (26-192) Result Diagram: 09/07/16 0500 09/07/16 0500 Imaging Last Impressions Chest X-Ray 09/06/16 1831 Signed Impressions: Service Date/Time: August 18:54 - CONCLUSION: Bilateral effusions. Thomas Brennan MD Patient/Family Conference Present at Family Conference: Patient's daughter Arlin is with her during the conference. Also present is medical student Janet Eric. . Family Conference Time (mins): 42 Family Conference Location: Bedside, Hallway Issues Discussed: * Palliative care role, purpose, approach * Additional medical, psychosocial, and spiritual history * Patients general health, functional status, and cognitive changes in the months leading up to the current hospitalization * Patient/family understanding of the current medical problems * Patient/family understanding of prognosis * Patients goals of care as best understood from advance directives and/or conversations and/or values * Current medical treatment options and benefits/burdens of those options * Likely scenarios comparing ongoing aggressive care with a transition to comfort measures only * Questions answered to the best of my ability * Palliative care contact information provided . 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 Spiritual: Spirituality is very important to the patient, and her background is Sikh. She does desire a visit from the [employer] barista, and a consult has been placed. Legal: The patient has capacity for decision-making. She has designated son Wilmar and daughter Arlin as her healthcare surrogates. Ethical issues impacting care: None. . Important Contacts Daughter: Arlin López [phone] . Prognosis The patient has been declining for several weeks/months, with worsening weakness , weight loss, fatigue, and now has developed frailty with new onset congestive heart failure and rapid atrial fibrillation. If her decline continues, certainly her long-term prognosis is quite poor. . Code Status: Full Code Plan * FULL CODE - however, the patient would not want to be maintained on life support if she would "not be able to get back home, watch TV, and eat." If she was on a ventilator and her goals would not be achievable, she would want to be withdrawn from life support and allowed to peacefully. * DECISION-MAKING: The patient has capacity for decision-making. She has designated son Wilmar and daughter Arlin as her healthcare surrogates. * GOALS: The patient is hoping to improve enough to be discharged from the hospital, and maybe even returned to her home somewhat independently in [facility]. However, she does acknowledge that she has been declining in recent weeks and months, and may continue to need assistance from her children. * SYMPTOMS: The patient has had intermittent anxiety, but that is not symptomatic at this time. Her dyspnea seems to be improving with treatment and supplemental oxygen. * Tent Finisher consult placed. * HCS form completion requested via Case Management. * Palliative Care will continue to follow the patient during this hospitalization. . Time Spent Total Floor Time (mins): 79 Face to Face Time (mins): 52 >50% Counseling/Coord of Care: Yes Thank you for the opportunity to participate in the care of Ms. Hood. Attestation To help prompt me to consider important information that might be impacting today's encounter and assessment, information from prior notes written by myself or my colleagues may have been "brought forward" into today's note. My signature on this note, however, is an attestation that I personally performed the exam, history, and/or decision-making noted today, and, unless otherwise indicated, the interactions with patient, family, and staff as well as the review of records all occurred today. I also attest that the listed assessment and stated plan reflect my best clinical judgment today based on the combination of historical information, prior notes, and today's exam/ interactions. When time spent is documented, it refers only to time spent today by the signer, or if indicated, combined time spent today by collaborating physician/nurse practitioner. Yolanda Marie MD Sep 07, 2016 11:33
--- NOTE | 2016-09-07 12:16 | RADRPT ---
EXAM DATE/TIME: 09/07/2016 09:53 [facility] COMPARISON: No previous studies available for comparison. INDICATIONS : Bilateral leg swelling. MEDICAL HISTORY : Hypertension. Hypercholesterolemia. SURGICAL HISTORY : Appendectomy.Tonsillectomy. ENCOUNTER: Initial ACUITY: 2 months PAIN SCORE: 0/10 LOCATION: Bilateral leg. TECHNIQUE: Venous ultrasound of the left and right leg was performed from the inguinal ligament to the proximal calf. Real-time, color Doppler and spectral tracing, compression and augmentation techniques were us ed. FINDINGS: RIGHT LEG: There is normal compressibility of the deep venous system from the inguinal region to the proximal ca lf. No echogenic clot is seen in the lumen of the common femoral, femoral, popliteal, and posterior tibial veins. There is a normal response of the venous system to proximal and distal augmentation an d respiration. LEFT LEG: There is normal compressibility of the deep venous system from the inguinal region to the proximal ca lf. No echogenic clot is seen in the lumen of the common femoral, femoral, popliteal, and posterior tibial veins. There is a normal response of the venous system to proximal and distal augmentation an d respiration. CONCLUSION: Normal examination. No evidence DVT Bravo Golden MD on September 07, 2016 at 12:14 Board Certified Radiologist. This report was verified electronically.
[2016-09-07] MEDS: DILTIAZEM HCL 60 MG TAB PO SCH (13:00)
--- NOTE | 2016-09-07 13:28 | EC ---
Study Study Date:09/07/2016 STUDY CONCLUSIONS SUMMARY - Left ventricle: The cavity size was normal. Wall thickness was increased in a pattern of moderate LVH. Systolic function was vigorous. The estimated ejection fraction was in the range of 65% to 70%. Wall motion was normal; there were no regional wall motion abnormalities. Doppler parameters are consistent with abnormal left ventricular relaxation (grade 1 diastolic dysfunction). - Aortic valve: Valve area: 1.09cm^2(VTI). Valve area: 0.9cm^2 (Vmax). - Mitral valve: Calcified annulus. Mild to moderate regurgitation. Valve area by continuity equation (using LVOT flow): 0.63cm^2. - Left atrium: The atrium was mildly dilated. - Right ventricle: The cavity size was mildly dilated. Wall thickness was normal. - Right atrium: The atrium was moderately to severely dilated. - Tricuspid valve: Moderate regurgitation. - Pulmonary arteries: Systolic pressure was mildly increased. - Pericardium, extracardiac: There was a right pleural effusion. There was a left pleural effusion. If LV function is below 40, please consider prescribing an ACEI or ARB or document rationale for non-use. PROCEDURE DATA STUDY STATUS: Elective. Procedure: Transthoracic echocardiography. Image quality was good. Scanning was performed from the parasternal, apical, and subcostal acoustic windows. Study completion: The patient tolerated the procedure well. Transthoracic echocardiography. M-mode, complete 2D, complete spectral Doppler, and color Doppler. Height: Height: 64in. Weight: Weight: 116.8lb. Body mass index: BMI: 20.1kg/m^2. Body surface area: BSA: 1.56m^2. Patient status: Inpatient. CARDIAC ANATOMY LEFT VENTRICLE: The cavity size was normal. Wall thickness was increased in a pattern of moderate LVH. Systolic function was vigorous. The estimated ejection fraction was in the range of 65% to 70%. Wall motion was normal; there were no regional wall motion abnormalities. Doppler parameters are consistent with abnormal left ventricular relaxation (grade 1 diastolic dysfunction). AORTIC VALVE: Trileaflet; mildly thickened, mildly calcified leaflets. Doppler: Transvalvular velocity was within the normal range. There was no stenosis. Trace to mild regurgitation. Valve area: 1.09cm^2(VTI). Indexed valve area: 0.7cm^2/m^2 (VTI). Valve area: 0.9cm^2 (Vmax). Indexed valve area: 0.58cm^2/m^2 (Vmax). Mean gradient: 2mm Hg (S). AORTA: Aortic root: The aortic root was normal in size. MITRAL VALVE: Calcified annulus. Doppler: Transvalvular velocity was within the normal range. There was no evidence for stenosis. Mild to moderate regurgitation. Valve area by pressure half-time: 2.65cm^2. Indexed valve area by pressure half-time: 1.7cm^2/m^2. Valve area by continuity equation (using LVOT flow): 0.63cm^2. Indexed valve area by continuity equation (using LVOT flow): 0.4cm^2/m^2. Mean gradient: 4mm Hg (D). Peak gradient: 9mm Hg (D). LEFT ATRIUM: The atrium was mildly dilated. RIGHT VENTRICLE: The cavity size was mildly dilated. Wall thickness was normal. PULMONIC VALVE: Doppler: Transvalvular velocity was within the normal range. There was no evidence for stenosis. No regurgitation. TRICUSPID VALVE: Structurally normal valve. Doppler: Transvalvular velocity was within the normal range. Moderate regurgitation. PULMONARY ARTERY: Systolic pressure was mildly increased. RIGHT ATRIUM: The atrium was moderately to severely dilated. PERICARDIUM: There was no pericardial effusion. SYSTEMIC VEINS: Inferior vena cava: The vessel was dilated. Pleura: There was a right pleural effusion. There was a left pleural effusion. Patient weight: 116.8lb _Ejection fraction:_ 65-75% _Fractional shortening:_ 32% up to 5Kg 5-11.5Kg 11.6-22.9Kg 23-45Kg 45-57Kg Aortic Root 7-13 <17 13-22 17-27 17-27 LA diam 6-13 <23 24-38 33-47 37-40 RVID 10-17 7-15 7-15 7-18 8-17 LVIDd 12-22 <32 24-38 33-47 37-40 LVPW 2-4 3-6 5-7 6-8 7-8 IVS 2-4 3-6 5-7 6-8 7-8 BASIC MEASUREMENTS ADULT NORMAL Left ventricle LV internal dimension, ED, chordal *33.7 mm 43-52 level, PLAX LV internal dimension, ES, chordal *22.1 mm 23-38 level, PLAX Fractional shortening, chordal level, 34 % >29 PLAX LV posterior wall thickness, ED 12 mm IVS/LVPW ratio, ED 0.98 <1.3 Ventricular septum Septal thickness, ED 11.7 mm Aortic valve Leaflet separation 17 mm 15-26 Aorta Root diameter, ED 27 mm Left atrium Anterior-posterior dimension 39 mm Anterior-posterior dimension index *2.5 cm/m^2 <2.2 BASIC MEASUREMENTS ADULT NORMAL Aortic valve Leaflet separation 17 mm 15-26 DOPPLER MEASUREMENTS ADULT NORMAL Aortic valve Peak velocity, S 99.2 cm/s Mean velocity, S 60.5 cm/s VTI, S 23.5 cm Mean gradient, S 2 mm Hg Valve area, VTI 1.09 cm^2 Valve area index, VTI 0.7 cm^2/m^2 Valve area, Vmax 0.9 cm^2 Valve area index, Vmax 0.58 cm^2/m^2 Mitral valve Mean velocity, D 94.3 cm/s Pressure half-time 83 ms Mean gradient, D 4 mm Hg Peak gradient, D 9 mm Hg Valve area, pressure half-time 2.65 cm^2 Valve area index, pressure half-time 1.7 cm^2/m^2 Valve area, LVOT continuity 0.63 cm^2 Valve area index, LVOT continuity 0.4 cm^2/m^2 Tricuspid valve Regurgitant peak velocity 210 cm/s Peak RV-RA gradient, S 18 mm Hg Maximal regurgitant velocity 210 cm/s Pulmonic valve Peak velocity, S 50.4 cm/s LEGEND: Mean values are shown as u=mean value. Asterisk (*) prieto values outside specified normal range. Prepared and signed by Bob Abraham [id number]
--- NOTE | 2016-09-07 16:17 | EKG ---
Date Performed: 09/07/2016 Time Performed: 04:57:55 PTAGE: 85 years EKG: ATRIAL FIBRILLATION WITH RAPID VENTRICULAR RESPONSE MODERATE ST DEPRESSION ABNORMAL ECG PREVIOUS TRACING : 09/07/2016 01.14 Compared to the previous tracing, rapid ventricular respon se is new DOCTOR: Harish Isaac Interpretating Date/Time 09/07/2016 16:16:39
--- NOTE | 2016-09-07 16:26 | EKG ---
Date Performed: 09/07/2016 Time Performed: 01:14:47 PTAGE: 85 years EKG: ATRIAL FIBRILLATION WITH RAPID VENTRICULAR RESPONSE MODERATE ST DEPRESSION ABNORMAL ECG PREVIOUS TRACING : 09/06/2016 19.57 Compared to prior tracing no significant change DOCTOR: Harish Isaac Interpretating Date/Time 09/07/2016 16:24:16
--- NOTE | 2016-09-07 16:29 | EKG ---
Date Performed: 09/06/2016 Time Performed: 19:57:53 PTAGE: 85 years EKG: ATRIAL FIBRILLATION ANTEROSEPTAL MYOCARDIAL INFARCTION ABNORMAL ECG NO PREVIOUS TRACING DOCTOR: Harish Isaac Interpretating Date/Time 09/07/2016 16:28:32
--- NOTE | 2016-09-07 19:25 | RADRPT ---
EXAM DATE/TIME: 09/07/2016 19:05 [place] COMPARISON: No previous studies available for comparison. INDICATIONS : Altered mental status. Rule out CVA. Patient complains of dizziness. RADIATION DOSE: 56.35 CTDIvol (mGy) MEDICAL HISTORY : Cardiovascular disease. Hypertension. SURGICAL HISTORY : Appendectomy. ENCOUNTER: Initial ACUITY: 1 day PAIN SCALE: 0/10 LOCATION: cranial TECHNIQUE: Multiple contiguous axial images were obtained of the head. Using automated exposure control and adj ustment of the mA and/or kV according to patient size, radiation dose was kept as low as reasonably a chievable to obtain optimal diagnostic quality images. FINDINGS: There is no evidence for intracranial hemorrhage, mass effect, mass lesions, or edema. The visualize d bony structures appear intact. Moderate degree of brain atrophy is seen. Moderate periventricular white matter changes are seen nonspecific mostly consistent with chronic small vessel ischemic change s. There are no signs of acute infarction for technique. CONCLUSION: Chronic and small vessel ischemic changes without any evidence for acute hemorrhage o r mass effect. Theresa Mccoy MD on September 07, 2016 at 19:22 Board Certified Radiologist. This report was verified electronically.
[2016-09-08] VITALS (21 sets, daily range): BP systolic 104–144; BP diastolic 55–80; PULSE 60–129; RESP 16–20; TEMP 97–97.9; O2SAT 96–98
[2016-09-08] MEDS: DILTIAZEM 125 MG/NS 100 ML IV SCH ×2 (03:42)
[2016-09-08 07:24] LABS: AUTOMATED NEUTROPHIL # 6.8 TH/MM3 (1.8-7.7); BASOPHIL # 0.1 TH/MM3 (0-0.2); BASOPHIL % 0.6 % (0.0-2.0); EOSINOPHIL # 0.1 TH/MM3 (0-0.4); EOSINOPHIL % 1.3 % (0.0-4.0); HEMATOCRIT 44.2 % (35.0-46.0); HEMO FLAGS DIFF FINAL; LYMPH % 16.6 % (9.0-44.0); LYMPHOCYTE # 1.6 TH/MM3 (1.0-4.8); MEAN CELL VOLUME 84.9 FL (80.0-100.0); MEAN CORPUSCULAR HEMOGLOBIN 28.3 PG (27.0-34.0); MEAN CORPUSCULAR HGB CONC 33.3 % (32.0-36.0); NEUT % 69.5 % (16.0-70.0); PLATELET COUNT 178 TH/MM3 (150-450); RED BLOOD COUNT 5.21 MIL/MM3 (4.00-5.30); RED CELL DISTRIBUTION WIDTH 16.3 % (11.6-17.2); WHITE BLOOD COUNT 9.7 TH/MM3 (4.0-11.0)
[2016-09-08 07:38] LABS: BICARBONATE 31.3 MEQ/L (21.0-32.0); MAGNESIUM 1.7 MG/DL (1.5-2.5)
[2016-09-08 08:01] LABS: POTASSIUM 2.7 MEQ/L (3.5-5.1)
[2016-09-08] MEDS: DILTIAZEM HCL 60 MG TAB PO SCH ×4 (08:55→20:23)
[2016-09-08] MEDS: SODIUM CHLORIDE 0.9% FLUSH 5 ML FLUSH FLUSH SCH ×2 (08:56→20:25)
[2016-09-08] MEDS ORDERED: POTASSIUM CHLORIDE 20 MEQ CONTROLLED RELEASE TAB PO ONE ×2 (09:00→13:00)
--- NOTE | 2016-09-08 10:30 | PD.CARD.PN ---
Subjective Subjective Remarks no complaints Still in afib with RVR On dilt drip Objective Medications Current Medications Medications (Trade) Dose Ordered Sig/Crescencio Route Start Time Stop Time Status Last Admin (NS Flush) 2 ml UNSCH PRN FLUSH 09/06/16 20:00 (NS Flush) 2 ml BID FLUSH 09/06/16 21:00 09/07/16 09:00 (Narcan Inj) 0.4 mg UNSCH PRN IV 09/06/16 20:00 Ondansetron HCl 4 mg 4 mg Q6H PRN IV PUSH 09/07/16 05:30 09/07/16 05:39 (Cardizem Inj/NS Inj) 125 ml @ 0 mls/hr TITRATE IV 09/07/16 05:45 09/08/16 03:42 (Tylenol) 650 mg Q4H PRN PO 09/07/16 09:00 (Colace) 100 mg BID PRN PO 09/07/16 09:00 (Kim-Colace) 1 tab BID PRN PO 09/07/16 09:00 (Milk Of Magnesia Liq) 30 ml DAILY PRN PO 09/07/16 09:00 (Mag-Al Plus Susp Liq) 30 ml Q6H PRN PO 09/07/16 09:00 (Tums Chew) 1,000 mg TID PRN CHEW 09/07/16 09:00 (Savaysa) 30 mg DAILY PO 09/07/16 10:00 09/07/16 10:00 (Cardizem) 60 mg QID PO 09/07/16 13:00 09/08/16 08:55 (KCl) 40 meq ONCE ONCE PO 09/08/16 13:00 09/08/16 13:01 Vital Signs / I&O Vital Signs Date Time Temp Pulse Resp B/P Pulse Ox O2 Delivery O2 Flow Rate FiO2 09/08/16 08:01 97.9 107 20 138/65 96 09/08/16 04:00 97.6 105 16 144/62 98 09/08/16 04:00 82 09/08/16 00:40 87 09/08/16 00:00 97.6 91 16 134/80 97 09/07/16 20:06 93 09/07/16 18:55 98.2 104 17 137/63 95 09/07/16 16:24 89 18 126/78 99 Room Air 09/07/16 12:58 94 18 149/67 99 Nasal Cannula 2 09/07/16 11:41 89 18 103/89 99 Room Air I/O 09/07/16 09/07/16 09/07/16 09/08/16 09/08/16 09/08/16 07:00 15:00 23:00 07:00 15:00 23:00 Intake Total 192 ml 218 ml Output Total 1400 ml Balance -1400 ml 192 ml 218 ml Intake Oral 120 ml 180 ml IV Total 72 ml 38 ml Output Urine Total 1400 ml # Voids 1 1 Physical Exam GENERAL: Well-nourished, well-developed patient. SKIN: Warm and dry. HEAD: Normocephalic. EYES: No scleral icterus. No injection or drainage. NECK: Supple, trachea midline. No JVD or lymphadenopathy. CARDIOVASCULAR: Irr Irr without murmurs, gallops, or rubs. RESPIRATORY: Breath sounds equal bilaterally. No accessory muscle use. GASTROINTESTINAL: Abdomen soft, non-tender, nondistended. EXTREMITIES: No cyanosis, or edema. NEUROLOGICAL: Awake, alert, and oriented x 3. Non-focal. Laboratory Laboratory Tests Test 09/08/16 06:08 White Blood Count 9.7 TH/MM3 Red Blood Count 5.21 MIL/MM3 Hemoglobin 14.7 GM/DL Hematocrit 44.2 % Mean Corpuscular Volume 84.9 FL Mean Corpuscular Hemoglobin 28.3 PG Mean Corpuscular Hemoglobin 33.3 % Concent Red Cell Distribution Width 16.3 % Platelet Count 178 TH/MM3 Mean Platelet Volume 10.4 FL Neutrophils (%) (Auto) 69.5 % Lymphocytes (%) (Auto) 16.6 % Monocytes (%) (Auto) 12.0 % Eosinophils (%) (Auto) 1.3 % Basophils (%) (Auto) 0.6 % Neutrophils # (Auto) 6.8 TH/MM3 Lymphocytes # (Auto) 1.6 TH/MM3 Monocytes # (Auto) 1.2 TH/MM3 Eosinophils # (Auto) 0.1 TH/MM3 Basophils # (Auto) 0.1 TH/MM3 CBC Comment DIFF FINAL Differential Comment Sodium Level 133 MEQ/L Potassium Level 2.7 MEQ/L Chloride Level 91 MEQ/L Carbon Dioxide Level 31.3 MEQ/L Anion Gap 11 MEQ/L Blood Urea Nitrogen 11 MG/DL Creatinine 0.77 MG/DL Estimat Glomerular Filtration 72 ML/MIN Rate Random Glucose 124 MG/DL Calcium Level 8.5 MG/DL Magnesium Level 1.7 MG/DL Assessment and Plan Problem List: (1) Atrial fibrillation with RVR Assessment and Plan: Increase Diltiazem drip Avoid electrolytes abnormalities Replace K+ (2) Congestive heart failure (3) Hyponatremia (4) Lower extremity edema Problem Qualifiers (1) Lower extremity edema: Qualified Code: R60.0 - Edema of left lower extremity Walter-Kwadwo Naqvi MD Sep 08, 2016 10:30
[2016-09-08] MEDS ORDERED: CALAMINE LOTION 180 APPLIC/180 ML BTL TOPICAL PRN (12:00)
[2016-09-08] MEDS ORDERED: hydrOXYzine HCL 10 MG TAB PO PRN (12:00)
[2016-09-08] MEDS ORDERED: diphenhydrAMINE HCL 25 MG CAP PO PRN (12:00)
--- NOTE | 2016-09-08 12:02 | HHI.PR ---
Subjective Remarks Follow-up Chaim bedolla Developed generalized maculopapular rash without shortness of breath. Seen with daughter Discussed with RN and pharmacy Objective Vitals Vital Signs Date Time Temp Pulse Resp B/P Pulse Ox O2 Delivery O2 Flow Rate FiO2 09/08/16 08:01 97.9 107 20 138/65 96 09/08/16 04:00 97.6 105 16 144/62 98 09/08/16 04:00 82 09/08/16 00:40 87 09/08/16 00:00 97.6 91 16 134/80 97 09/07/16 20:06 93 09/07/16 18:55 98.2 104 17 137/63 95 09/07/16 16:24 89 18 126/78 99 Room Air 09/07/16 12:58 94 18 149/67 99 Nasal Cannula 2 I/O 09/07/16 09/07/16 09/07/16 09/08/16 09/08/16 09/08/16 07:00 15:00 23:00 07:00 15:00 23:00 Intake Total 192 ml 218 ml Output Total 1400 ml Balance -1400 ml 192 ml 218 ml Intake Oral 120 ml 180 ml IV Total 72 ml 38 ml Output Urine Total 1400 ml # Voids 1 1 Result Diagram: 09/08/16 0608 09/08/16 0608 Objective Remarks GENERAL: This is a thin, elderly, frail-appearing female patient, in no apparent distress. SKIN: Maculopapular rash mainly in the trunk HEAD: Atraumatic. Normocephalic. EYES: No scleral icterus. No injection or drainage. ENT: Nose without bleeding, purulent drainage. NECK: Trachea midline. No JVD or lymphadenopathy. No stridor CARDIOVASCULAR: Irregularly irregular rate and rhythm without murmurs, gallops, or rubs. Bilateral extremity pitting edema noted. RESPIRATORY: Breath sounds diminished bibasilarly, equal bilaterally. No wheezes but crackles on the right lung base GASTROINTESTINAL: Abdomen soft, non-tender, nondistended. No guarding. MUSCULOSKELETAL: Extremities without clubbing, cyanosis. NEUROLOGICAL: Awake and alert. Motor and sensory grossly within normal limits. Normal speech. Procedures None A/P Problem List: (1) Atrial fibrillation with RVR ICD Code: I48.91 Status: Acute (2) Congestive heart failure ICD Code: I50.9 Status: Acute (3) Hypertension ICD Code: I10 Status: Chronic (4) Lower extremity edema ICD Code: R60.0 Status: Acute (5) Hyponatremia ICD Code: E87.1 Status: Acute (6) Hyperbilirubinemia ICD Code: E80.6 Status: Acute Assessment and Plan Mrs. Hood is an 85 year-old female with a past medical history of hypertension and stroke who presented to the ER on 09/06/2016 with progressively worsening shortness of breath with lower extremity edema. 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 CXR showed bilateral effusions. Hyponatremia on labs with sodium 130, T. Bili elevated at 2.5, Troponin I 0.04 and BNP 461. Atrial fibrillation with RVR, new onset - RVR will increase Cardizem drip for the moment then Wean and discontinue Cardizem drip keep heart rate less than 100 and, continue Cardizem by mouth and ct anticoagulation patient with [id number] score of 7. Patient agrees - Consulted cardiology follow-up echocardiogram with LVH, diastolic dysfunction , right pleural effusion and pericardial effusion - Continuous cardiac telemetry Acute diastolic heart failure, new onset . Improving - Restart Lasix 20 mg daily - Strict intake and output every shift - Monitor vital signs every 4 hours - Heart healthy diet - Physical therapy to prevent debilitation Left lower extremity swelling Calf pain bilaterally - Bilateral doppler u/s of lower extremities without DVT Hypertension - recommended patient to d/c PRN clonidine - Continue to hold Lopressor and valsartan - monitor trends in blood pressure readings and adjust medications as indicated Hyponatremia likely related to CHF and HCTZ - sodium improving - Recheck BMP in a.m. and follow trends Hypokalemia secondary to diuresis - Replace with 80 mg potassium and repeat lab in the morning Hyperbilirubinemia - T. Bili elevated at 2.5 - follow trends Leukocytosis likely reactive. Improved Dermatitis likely drug-related (cardizem vs savaysa vs Kcl) -No respiratory compromise. Start symptomatic treatment with IV steroids, benadryl). pharmacy will dc one of the new meds and monitor DVT prophylaxis -Continue Savaysa Discharge Planning not ready for dc to rehab Problem Qualifiers (1) Lower extremity edema: Qualified Code: R60.0 - Edema of left lower extremity Abando,Vin MD Sep 08, 2016 12:02
[2016-09-08] MEDS: methylPREDNISolone SOD SUCC 125 MG/2 ML VIAL IV SCH ×2 (12:37→17:45)
[2016-09-08] MEDS: FUROSEMIDE 20 MG TAB PO SCH (12:39)
[2016-09-09] VITALS (8 sets, daily range): BP systolic 117–156; BP diastolic 58–77; PULSE 64–122; RESP 17–20; TEMP 97.3–97.9; O2SAT 91–97
[2016-09-09] MEDS: methylPREDNISolone SOD SUCC 125 MG/2 ML VIAL IV SCH ×2 (00:02→05:47)
[2016-09-09 07:29] LABS: BICARBONATE 30.9 MEQ/L (21.0-32.0); MAGNESIUM 1.8 MG/DL (1.5-2.5); POTASSIUM 4.4 MEQ/L (3.5-5.1)
--- NOTE | 2016-09-09 08:58 | PD.CARD.PN ---
Subjective Subjective Remarks no complaints Objective Medications Current Medications Medications (Trade) Dose Ordered Sig/Crescencio Route Start Time Stop Time Status Last Admin (NS Flush) 2 ml UNSCH PRN FLUSH 09/06/16 20:00 (NS Flush) 2 ml BID FLUSH 09/06/16 21:00 09/07/16 09:00 (Narcan Inj) 0.4 mg UNSCH PRN IV 09/06/16 20:00 Ondansetron HCl 4 mg 4 mg Q6H PRN IV PUSH 09/07/16 05:30 09/07/16 05:39 (Cardizem Inj/NS Inj) 125 ml @ 0 mls/hr TITRATE IV 09/07/16 05:45 09/08/16 03:42 (Tylenol) 650 mg Q4H PRN PO 09/07/16 09:00 (Colace) 100 mg BID PRN PO 09/07/16 09:00 (Kim-Colace) 1 tab BID PRN PO 09/07/16 09:00 (Milk Of Magnesia Liq) 30 ml DAILY PRN PO 09/07/16 09:00 (Mag-Al Plus Susp Liq) 30 ml Q6H PRN PO 09/07/16 09:00 (Tums Chew) 1,000 mg TID PRN CHEW 09/07/16 09:00 (Savaysa) 30 mg DAILY PO 09/07/16 10:00 Hold 09/07/16 10:00 (Cardizem) 60 mg QID PO 09/07/16 13:00 09/08/16 20:23 (Benadryl) 25 mg Q4H PRN PO 09/08/16 12:00 09/08/16 12:36 (SoluMEDROL INJ) 60 mg Q6HR IV 09/08/16 12:00 09/09/16 05:47 (Calamine Lotion) 1 applic Q6H PRN TOPICAL 09/08/16 12:00 (Lasix) 20 mg DAILY PO 09/08/16 12:00 09/08/16 12:39 (KCl) 20 meq DAILY PO 09/09/16 17:00 (Atarax) 10 mg Q8H PRN PO 09/08/16 12:00 Vital Signs / I&O Vital Signs Date Time Temp Pulse Resp B/P Pulse Ox O2 Delivery O2 Flow Rate FiO2 1/29/17 08:32 97.6 113 19 133/70 97 09/09/16 04:00 97.9 111 20 133/77 95 09/09/16 00:28 97.6 79 20 124/58 95 09/09/16 00:27 97.6 79 20 124/58 95 09/08/16 20:00 67 09/08/16 20:00 97.0 83 20 120/60 98 09/08/16 16:12 97.8 64 19 116/58 97 09/08/16 16:00 60 108/55 09/08/16 15:45 64 105/62 09/08/16 15:30 62 111/58 09/08/16 15:10 62 104/55 09/08/16 15:00 63 115/55 09/08/16 14:45 61 118/58 09/08/16 14:30 60 119/62 09/08/16 12:02 97.7 115 19 134/72 98 09/08/16 12:00 97 122/68 09/08/16 11:45 99 125/65 09/08/16 11:30 110 134/72 09/08/16 10:45 112 132/64 09/08/16 10:15 110 20 136/70 09/08/16 10:00 115 141/63 I/O 09/08/16 09/08/16 09/08/16 09/09/16 09/09/16 09/09/16 07:00 15:00 23:00 07:00 15:00 23:00 Intake Total 218 ml 480 ml 360 ml 120 ml Balance 218 ml 480 ml 360 ml 120 ml Intake Oral 180 ml 480 ml 360 ml 120 ml IV Total 38 ml # Voids 1 1 2 1 # Bowel Movements 0 Physical Exam GENERAL: Well-nourished, well-developed patient. SKIN: Warm and dry. HEAD: Normocephalic. EYES: No scleral icterus. No injection or drainage. NECK: Supple, trachea midline. No JVD or lymphadenopathy. CARDIOVASCULAR: Irr Irr without murmurs, gallops, or rubs. RESPIRATORY: Breath sounds equal bilaterally. No accessory muscle use. GASTROINTESTINAL: Abdomen soft, non-tender, nondistended. EXTREMITIES: No cyanosis, or edema. NEUROLOGICAL: Awake, alert, and oriented x 3. Non-focal. Laboratory Laboratory Tests Test 09/09/16 06:15 Sodium Level 131 MEQ/L Potassium Level 4.4 MEQ/L Chloride Level 91 MEQ/L Carbon Dioxide Level 30.9 MEQ/L Anion Gap 9 MEQ/L Blood Urea Nitrogen 15 MG/DL Creatinine 0.96 MG/DL Estimat Glomerular Filtration 56 ML/MIN Rate Random Glucose 137 MG/DL Calcium Level 9.2 MG/DL Magnesium Level 1.8 MG/DL Assessment and Plan Problem List: (1) Atrial fibrillation with RVR Assessment and Plan: Cont weaning Cardizem drip as tolerated and transition to PO Cardizem Cont OAC Dr. Minor will back tomorrow. (2) Congestive heart failure (3) Hyponatremia (4) Lower extremity edema Problem Qualifiers (1) Lower extremity edema: Qualified Code: R60.0 - Edema of left lower extremity Kwadwo Keller MD Sep 09, 2016 08:58
[2016-09-09] MEDS: FUROSEMIDE 20 MG TAB PO SCH (09:35)
[2016-09-09] MEDS: DILTIAZEM HCL 60 MG TAB PO SCH ×4 (09:35→21:00)
[2016-09-09] MEDS: SODIUM CHLORIDE 0.9% FLUSH 5 ML FLUSH FLUSH SCH ×2 (09:36→21:00)
--- NOTE | 2016-09-09 12:58 | HHI.PR ---
Subjective Remarks Follow-up A. fib and RVR. His better. Rash in the back and bottom resolved. Dw daughter, maybe contact dermatitis vs Savaysa. Still receiving Cardizem drip , discussed with RN to discontinue Objective Vitals Vital Signs Date Time Temp Pulse Resp B/P Pulse Ox O2 Delivery O2 Flow Rate FiO2 09/09/16 12:12 97.3 122 19 131/61 91 09/09/16 08:32 97.6 113 19 133/70 97 09/09/16 04:00 97.9 111 20 133/77 95 09/09/16 00:28 97.6 79 20 124/58 95 09/09/16 00:27 97.6 79 20 124/58 95 09/08/16 20:00 67 09/08/16 20:00 97.0 83 20 120/60 98 09/08/16 16:12 97.8 64 19 116/58 97 09/08/16 16:00 60 108/55 09/08/16 15:45 64 105/62 09/08/16 15:30 62 111/58 09/08/16 15:10 62 104/55 09/08/16 15:00 63 115/55 09/08/16 14:45 61 118/58 09/08/16 14:30 60 119/62 I/O 09/08/16 09/08/16 09/08/16 09/09/16 09/09/16 09/09/16 07:00 15:00 23:00 07:00 15:00 23:00 Intake Total 218 ml 480 ml 360 ml 120 ml Balance 218 ml 480 ml 360 ml 120 ml Intake Oral 180 ml 480 ml 360 ml 120 ml IV Total 38 ml # Voids 1 1 2 1 # Bowel Movements 0 Result Diagram: 09/08/16 0608 09/09/16 0615 Objective Remarks GENERAL: This is a thin, elderly, frail-appearing female patient, in no apparent distress. SKIN: Maculopapular rash mainly in the back resolved HEAD: Atraumatic. Normocephalic. EYES: No scleral icterus. No injection or drainage. ENT: Nose without bleeding, purulent drainage. NECK: Trachea midline. No JVD or lymphadenopathy. No stridor CARDIOVASCULAR: Irregularly irregular rate and rhythm without murmurs, gallops, or rubs. Bilateral extremity pitting edema noted. RESPIRATORY: Breath sounds diminished bibasilarly, equal bilaterally. No wheezes and crackles GASTROINTESTINAL: Abdomen soft, non-tender, nondistended. No guarding. MUSCULOSKELETAL: Extremities without clubbing, cyanosis. NEUROLOGICAL: Awake and alert. Motor and sensory grossly within normal limits. Normal speech. Procedures None A/P Problem List: (1) Atrial fibrillation with RVR ICD Code: I48.91 Status: Acute (2) Congestive heart failure ICD Code: I50.9 Status: Acute (3) Hypertension ICD Code: I10 Status: Chronic (4) Lower extremity edema ICD Code: R60.0 Status: Acute (5) Hyponatremia ICD Code: E87.1 Status: Acute (6) Hyperbilirubinemia ICD Code: E80.6 Status: Acute Assessment and Plan Mrs. Hood is an 85 year-old female with a past medical history of hypertension and stroke who presented to the ER on 09/06/2016 with progressively worsening shortness of breath with lower extremity edema. 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 CXR showed bilateral effusions. Hyponatremia on labs with sodium 130, T. Bili elevated at 2.5, Troponin I 0.04 and BNP 461. Atrial fibrillation with RVR, new onset - RVR will increase Cardizem drip for the moment then Wean and discontinue Cardizem drip keep heart rate less than 100 and, continue Cardizem by mouth and ct anticoagulation patient with [id number] score of 7. Patient prefers to be on another novel agent aware of similar allergic reaction to savaysa. She does not want to be on Coumadin - Consulted cardiology follow-up echocardiogram with LVH, diastolic dysfunction , right pleural effusion and pericardial effusion - Continuous cardiac telemetry - 09/09. CVR will dc drip and monitor Acute diastolic heart failure, new onset . Improving - Restart Lasix 20 mg daily - Strict intake and output every shift - Monitor vital signs every 4 hours - Heart healthy diet - Physical therapy to prevent debilitation Left lower extremity swelling Calf pain bilaterally - Bilateral doppler u/s of lower extremities without DVT Hypertension - recommended patient to d/c PRN clonidine - Continue to hold Lopressor and valsartan - monitor trends in blood pressure readings and adjust medications as indicated Hyponatremia likely related to CHF and HCTZ - sodium 131. Asymptomatic - Recheck BMP in a.m. and follow trends Hypokalemia secondary to diuresis - Repeat lab in the morning Hyperbilirubinemia - T. Bili elevated at 2.5 - follow trends Leukocytosis likely reactive. Improved Dermatitis likely drug-related ( likely savaysa vs Kcl and cardizem(last two meds pt still taking and rash has resolved ) vs contact dermatitis? -No respiratory compromise. Ct symptomatic treatment with IV steroids, benadryl ). DVT prophylaxis -Pradaxa Discharge Planning not ready for dc to rehab maybe in am Problem Qualifiers (1) Lower extremity edema: Qualified Code: R60.0 - Edema of left lower extremity Santo Kate MD Sep 09, 2016 12:58
[2016-09-09] MEDS: DABIGATRAN ETEXILATE 150 MG CAP PO SCH ×2 (13:52→21:00)
[2016-09-09] MEDS: predniSONE 20 MG TAB PO SCH (13:52)
[2016-09-09] MEDS ORDERED: POTA20TA5 PO (15:26)
[2016-09-09] MEDS ORDERED: PRAD150C PO (15:26)
[2016-09-09] MEDS ORDERED: DILT1TAB2 PO (15:26)
[2016-09-09] MEDS ORDERED: PRED20 PO (15:26)
--- NOTE | 2016-09-09 15:26 | HHI.DCPOC ---
Discharge Care Plan Diagnosis: (1) Atrial fibrillation with RVR Your Health Problems Are: Difficulty with ADL Exercise Tolerance Goals to Promote Your Health * To prevent worsening of your condition and complications * To maintain your health at the optimal level Directions to Meet Your Goals Take your medications as prescribed Follow your dietary instruction Follow activity as directed Keep your appointments as scheduled Take your immunizations and boosters as scheduled If your symptoms worsen call your PCP, if no PCP go to Urgent Care Center or Emergency Room Smoking is Dangerous to Your Health. Avoid second hand smoke Call the 24-hour hour crisis hotline for domestic abuse at Santo Kate MD Sep 09, 2016 15:26
[2016-09-09] MEDS: POTASSIUM CHLORIDE 20 MEQ CONTROLLED RELEASE TAB PO SCH (18:23)
[2016-09-10] VITALS (8 sets, daily range): BP systolic 133–161; BP diastolic 58–93; PULSE 77–140; RESP 16–20; TEMP 97.3–97.8; O2SAT 94–99
[2016-09-10 06:55] LABS: BICARBONATE 29.8 MEQ/L (21.0-32.0); MAGNESIUM 1.8 MG/DL (1.5-2.5)
--- NOTE | 2016-09-10 07:47 | PD.CARD.PN ---
Subjective Subjective Remarks denies any CV complaints Objective Vital Signs / I&O Vital Signs Date Time Temp Pulse Resp B/P Pulse Ox O2 Delivery O2 Flow Rate FiO2 09/10/16 04:00 97.7 107 16 153/68 96 09/10/16 00:00 97.6 102 16 140/69 96 09/09/16 20:00 Nasal Cannula 2.00 09/09/16 20:00 89 09/09/16 20:00 97.9 109 17 156/73 96 09/09/16 16:13 97.8 107 20 117/59 97 09/09/16 12:12 97.3 122 19 131/61 91 09/09/16 08:32 97.6 113 19 133/70 97 09/09/16 08:00 101 I/O 09/09/16 09/09/16 09/09/16 09/10/16 09/10/16 09/10/16 07:00 15:00 23:00 07:00 15:00 23:00 Intake Total 120 ml 360 ml 360 ml 80 ml Output Total 100 ml Balance 120 ml 360 ml 360 ml -20 ml Intake Oral 120 ml 360 ml 360 ml 80 ml Output Urine Total 100 ml # Voids 1 1 1 # Bowel Movements 0 Physical Exam GENERAL: Well-nourished, well-developed patient in no apparent distress. NECK: No JVD. No carotid bruit. CARDIOVASCULAR: IR IR S1/S2 no murmur, rub, or gallop. RESPIRATORY: No accessory muscle use. Clear to auscultation. Breath sounds equal bilaterally. GASTROINTESTINAL: Abdomen soft, non-tender, nondistended. MUSCULOSKELETAL: Extremities without clubbing, cyanosis, or edema. Laboratory Laboratory Tests Test 09/10/16 05:25 Sodium Level 130 MEQ/L Potassium Level 4.0 MEQ/L Chloride Level 91 MEQ/L Carbon Dioxide Level 29.8 MEQ/L Anion Gap 9 MEQ/L Blood Urea Nitrogen 17 MG/DL Creatinine 0.64 MG/DL Estimat Glomerular Filtration 89 ML/MIN Rate Random Glucose 113 MG/DL Calcium Level 8.9 MG/DL Magnesium Level 1.8 MG/DL Assessment and Plan Problem List: (1) Atrial fibrillation with RVR (2) Congestive heart failure (3) Hyponatremia (4) Lower extremity edema Assessment and Plan Heart rate is not well controlled. Will add metoprolol 50 mg BID. She is now on Pradaxa for anticoagulation Na remains low Problem Qualifiers (1) Lower extremity edema: Qualified Code: R60.0 - Edema of left lower extremity Darius Jones Sep 10, 2016 07:47
[2016-09-10] MEDS: FUROSEMIDE 20 MG TAB PO SCH (08:12)
[2016-09-10] MEDS: POTASSIUM CHLORIDE 20 MEQ CONTROLLED RELEASE TAB PO SCH (08:12)
[2016-09-10] MEDS: predniSONE 20 MG TAB PO SCH (08:12)
[2016-09-10] MEDS: DILTIAZEM HCL 60 MG TAB PO SCH ×4 (08:12→21:20)
[2016-09-10] MEDS: SODIUM CHLORIDE 0.9% FLUSH 5 ML FLUSH FLUSH SCH ×2 (08:12→21:21)
[2016-09-10] MEDS: DABIGATRAN ETEXILATE 150 MG CAP PO SCH ×2 (08:12→21:21)
[2016-09-10] MEDS ORDERED: DILTIAZEM HCL 25 MG/5 ML VIAL IV ONE (09:30)
[2016-09-10] MEDS ORDERED: DILTIAZEM HCL 25 MG/5 ML VIAL IV PRN (09:45)
[2016-09-10] MEDS: METOPROLOL TARTRATE 50 MG TAB PO SCH ×2 (09:55→21:20)
[2016-09-10] MEDS ORDERED: DILTIAZEM INJ 125 MG in SODIUM CHLORIDE 0.9% INJ 100 ML IV PRN (10:00)
--- NOTE | 2016-09-10 11:05 | HHI.HCPN ---
Reason for visit a. To assist with evaluation and management of symptoms including: Dyspnea , fatigue b. To assist medical decision maker(s) with: better understanding of current medical conditions; weighing benefits/burdens of medical treatment options; making medical treatment decisions. . Subjective/Interval History INTERVAL NOTE: The patient feels better overall, but still feels very weak. She says "my legs are weak and shaky if I try to stand," and she is looking forward to most likely going to a rehab center in [place] upon discharge from the hospital. She remains afebrile, remains in atrial fibrillation with a rate that is becoming better controlled, her sodium is still 130, and her white count is 9.7. The echocardiogram indicated ejection fraction of 65-70%. As per initial consultation note 09/07/16 by Chaim Marie MD: This 85-year-old female, with a past history of ocular stroke, carotid artery disease, and hypertension, has been declining slowly over the last several months. She has become weaker, has been using a walker since June 2016, has lost 20 pounds, and now has had some intermittent dyspnea over the past few weeks. The dyspnea worsened, and she presented to the emergency department on , where she was found to be hypertensive and tachycardic. Findings in the emergency department included: * Alert, mild dyspnea, leg edema * Atrial fibrillation with rapid ventricular response * Temp 97.5, pulse 99, respirations 16, blood pressure 183/111, oxygen saturation 93% on room air * White count 10.5, hemoglobin 17.1 * Sodium 1:30, creatinine 0.99, albumin 3.8 * Bilirubin 2.5, AST 35, ALT 22 * BNP 461, troponin 0.04 * Chest x-ray with bilateral pleural effusions, right greater than left The patient was admitted to the hospital, and diuresis was initiated. She has just had leg Doppler studies done, and is scheduled for cardiology evaluation including echocardiogram. She feels less dyspneic this morning, and her blood pressure is improved at 132/77. However, her sodium is a little lower at 128, and her bilirubin is 2.6, AST up to 69. Palliative Care was consulted to assist with symptom management, and to explore with the patient and her family the prognosis, as well as the benefits and burdens of the various treatment options. . Family/friend interactions Daughter Arlin is present in the room. We again reviewed the patient's recent decline, her improvement here (more controlled rate, less edema, less dyspnea) but ongoing weakness. We discussed how important it will be for her to continue to try to eat better and to participate vigorously in her rehabilitation program so that she may be able to get home again. She says "I am determined." . Advance Directives Living Will: Never completed Health Care Surrogate: Never completed Durable Power of Vermin Exterminator: Never completed Advance Directive Specifics Health Care Surrogate(s): At the time of the initial consultation, the patient named son Wilmar and daughter Arlin has healthcare surrogates. . Objective Vital Signs Date Time Temp Pulse Resp B/P Pulse Ox O2 Delivery O2 Flow Rate FiO2 09/10/16 08:01 97.4 140 20 161/80 96 09/10/16 08:00 Nasal Cannula 2.00 09/10/16 04:00 97.7 107 16 153/68 96 09/10/16 00:00 97.6 102 16 140/69 96 09/09/16 20:00 Nasal Cannula 2.00 09/09/16 20:00 89 09/09/16 20:00 97.9 109 17 156/73 96 09/09/16 16:13 97.8 107 20 117/59 97 09/09/16 12:12 97.3 122 19 131/61 91 Intake & Output 09/10/16 09/10/16 07:00 19:00 Intake Total 440 ml Output Total 100 ml Balance 340 ml Intake Oral 440 ml Output Urine Total 100 ml # Voids 1 Physical Exam CONSTITUTIONAL/GENERAL: This is an elderly, frail patient, in no apparent distress. ENT: Hearing grossly normal. Nose without bleeding or purulent drainage. NECK: Trachea midline. Supple, nontender. No palpable thyroid enlargement or nodularity. CARDIOVASCULAR: Irregularly irregular without murmurs, gallops, or rubs. No JVD. Peripheral pulses symmetric. RESPIRATORY/CHEST: Symmetric, unlabored respirations. Clear to auscultation. Breath sounds equal bilaterally, but quite diminished at the bases. No wheezes, rales, or rhonchi. GASTROINTESTINAL: Abdomen soft, non-tender, nondistended. No hepato-splenomegaly , or palpable masses. No guarding. Bowel sounds present. GENITOURINARY: Without palpable bladder distension. MUSCULOSKELETAL: Extremities without clubbing or cyanosis, and there is no more edema in the lower legs. No joint tenderness or effusion noted. No calf tenderness. No mottling or clubbing. NEUROLOGICAL: Awake and alert. Motor and sensory grossly within normal limits. Follows commands. Cognitively sharp. Moves all extremities. PSYCHIATRIC: No obvious anxiety/depression. No apparent hallucinations or other psychotic thought process. . Diagnostic Tests Laboratory Laboratory Tests Test 09/08/16 09/09/16 09/10/16 06:08 06:15 05:25 White Blood Count 9.7 TH/MM3 (4.0-11.0) Red Blood Count 5.21 MIL/MM3 (4.00-5.30) Hemoglobin 14.7 GM/DL (11.6-15.3) Hematocrit 44.2 % (35.0-46.0) Mean Corpuscular Volume 84.9 FL (80.0-100.0) Mean Corpuscular Hemoglobin 28.3 PG (27.0-34.0) Mean Corpuscular Hemoglobin 33.3 % Concent (32.0-36.0) Red Cell Distribution Width 16.3 % (11.6-17.2) Platelet Count 178 TH/MM3 (150-450) Mean Platelet Volume 10.4 FL (7.0-11.0) Neutrophils (%) (Auto) 69.5 % (16.0-70.0) Lymphocytes (%) (Auto) 16.6 % (9.0-44.0) Monocytes (%) (Auto) 12.0 % (0.0-8.0) Eosinophils (%) (Auto) 1.3 % (0.0-4.0) Basophils (%) (Auto) 0.6 % (0.0-2.0) Neutrophils # (Auto) 6.8 TH/MM3 (1.8-7.7) Lymphocytes # (Auto) 1.6 TH/MM3 (1.0-4.8) Monocytes # (Auto) 1.2 TH/MM3 (0-0.9) Eosinophils # (Auto) 0.1 TH/MM3 (0-0.4) Basophils # (Auto) 0.1 TH/MM3 (0-0.2) CBC Comment DIFF FINAL Differential Comment Sodium Level 133 MEQ/L 131 MEQ/L 130 MEQ/L (136-145) (136-145) (136-145) Potassium Level 2.7 MEQ/L 4.4 MEQ/L 4.0 MEQ/L (3.5-5.1) (3.5-5.1) (3.5-5.1) Chloride Level 91 MEQ/L 91 MEQ/L 91 MEQ/L (98-107) (98-107) (98-107) Carbon Dioxide Level 31.3 MEQ/L 30.9 MEQ/L 29.8 MEQ/L (21.0-32.0) (21.0-32.0) (21.0-32.0) Anion Gap 11 MEQ/L (5-15) 9 MEQ/L (5-15) 9 MEQ/L (5-15) Blood Urea Nitrogen 11 MG/DL (7-18) 15 MG/DL (7-18) 17 MG/DL (7-18) Creatinine 0.77 MG/DL 0.96 MG/DL 0.64 MG/DL (0.50-1.00) (0.50-1.00) (0.50-1.00) Estimat Glomerular Filtration 72 ML/MIN (>89) 56 ML/MIN (>89) 89 ML/MIN (>89) Rate Random Glucose 124 MG/DL 137 MG/DL 113 MG/DL (74-106) (74-106) (74-106) Calcium Level 8.5 MG/DL 9.2 MG/DL 8.9 MG/DL (8.5-10.1) (8.5-10.1) (8.5-10.1) Magnesium Level 1.7 MG/DL 1.8 MG/DL 1.8 MG/DL (1.5-2.5) (1.5-2.5) (1.5-2.5) Result Diagram: 09/08/16 0608 09/10/16 0525 Imaging Last Impressions Lower Extremity Ultrasound 09/07/16 0000 Signed Impressions: Service Date/Time: Wednesday, September 07, 2016 09:53 - CONCLUSION: Normal examination. No evidence DVT Bravo Golden MD Head CT 09/07/16 0000 Signed Impressions: Service Date/Time: Wednesday, September 07, 2016 19:05 - CONCLUSION: Chronic and small vessel ischemic changes without any evidence for acute hemorrhage or mass effect. Theresa Mccoy MD Chest X-Ray 09/06/16 1831 Signed Impressions: Service Date/Time: August 18:54 - CONCLUSION: Bilateral effusions. 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 Spiritual: Spirituality is very important to the patient, and her background is [employer]. She does desire a visit from the zookeeper, and a consult has been placed. Legal: The patient has capacity for decision-making. She has designated son Wilmar and daughter Arlin as her healthcare surrogates. Ethical issues impacting care: None. . Important Contacts Daughter: Arlin [facility] [phone] . Prognosis The patient has been declining for several weeks/months, with worsening weakness , weight loss, fatigue, and now has developed frailty with new onset congestive heart failure and rapid atrial fibrillation. If her decline continues, certainly her long-term prognosis is quite poor. . Code Status: Full Code Plan * FULL CODE - however, the patient would not want to be maintained on life support if she would "not be able to get back home, watch TV, and eat." If she was on a ventilator and her goals would not be achievable, she would want to be withdrawn from life support and allowed to peacefully. * DECISION-MAKING: The patient has capacity for decision-making. She has designated son Wilmar and daughter Arlin as her healthcare surrogates. * GOALS: The patient is hoping to improve enough to be discharged from the hospital and go to rehab, and then hopefully return to her home somewhat independently in [facility]. However, she does acknowledge that she has been declining in recent weeks and months, and may continue to need assistance from her children. * SYMPTOMS: The patient has had intermittent anxiety, but that is not symptomatic at this time. Her dyspnea seems to be improving with treatment and supplemental oxygen. * Recycling Manager consult placed. * Palliative Care will continue to follow the patient during this hospitalization. . Time Spent Total Floor Time (mins): 39 Face to Face Time (mins): 21 >50% Counseling/Coord of Care: Yes Attestation To help prompt me to consider important information that might be impacting today's encounter and assessment, information from prior notes written by myself or my colleagues may have been "brought forward" into today's note. My signature on this note, however, is an attestation that I personally performed the exam, history, and/or decision-making noted today, and, unless otherwise indicated, the interactions with patient, family, and staff as well as the review of records all occurred today. I also attest that the listed assessment and stated plan reflect my best clinical judgment today based on the combination of historical information, prior notes, and today's exam/ interactions. When time spent is documented, it refers only to time spent today by the signer, or if indicated, combined time spent today by collaborating physician/nurse practitioner. Yolanda Marie MD Sep 10, 2016 11:05
--- NOTE | 2016-09-10 14:36 | HHI.PR ---
Subjective Remarks F/U Fib. RVR this am started on Lopressor. No complaints at this time. Dw RN seen with daughter Objective Vitals Vital Signs Date Time Temp Pulse Resp B/P Pulse Ox O2 Delivery O2 Flow Rate FiO2 09/10/16 12:00 97.3 84 18 133/65 98 09/10/16 08:01 97.4 140 20 161/80 96 09/10/16 08:00 112 09/10/16 08:00 Nasal Cannula 2.00 09/10/16 08:00 130 09/10/16 04:00 97.7 107 16 153/68 96 09/10/16 00:00 97.6 102 16 140/69 96 09/09/16 20:00 Nasal Cannula 2.00 09/09/16 20:00 89 09/09/16 20:00 97.9 109 17 156/73 96 09/09/16 16:13 97.8 107 20 117/59 97 I/O 09/09/16 09/09/16 09/09/16 09/10/16 09/10/16 09/10/16 07:00 15:00 23:00 07:00 15:00 23:00 Intake Total 120 ml 360 ml 360 ml 80 ml Output Total 100 ml Balance 120 ml 360 ml 360 ml -20 ml Intake Oral 120 ml 360 ml 360 ml 80 ml Output Urine Total 100 ml # Voids 1 1 1 # Bowel Movements 0 Result Diagram: 09/08/16 0608 09/10/16 0525 Imaging Last Impressions Lower Extremity Ultrasound 09/07/16 0000 Signed Impressions: Service Date/Time: Wednesday, September 07, 2016 09:53 - CONCLUSION: Normal examination. No evidence DVT Bravo Golden MD Head CT 09/07/16 0000 Signed Impressions: Service Date/Time: Wednesday, September 07, 2016 19:05 - CONCLUSION: Chronic and small vessel ischemic changes without any evidence for acute hemorrhage or mass effect. Theresa Mccoy MD Chest X-Ray 09/06/16 1831 Signed Impressions: Service Date/Time: August 18:54 - CONCLUSION: Bilateral effusions. Thomas Brennan MD Objective Remarks GENERAL: This is a thin, elderly, frail-appearing female patient, in no apparent distress. SKIN: Maculopapular rash mainly in the back resolved HEAD: Atraumatic. Normocephalic. EYES: No scleral icterus. No injection or drainage. ENT: Nose without bleeding, purulent drainage. NECK: Trachea midline. No JVD or lymphadenopathy. No stridor CARDIOVASCULAR: Irregularly irregular rate and rhythm without murmurs, gallops, or rubs. Bilateral extremity pitting edema noted. RESPIRATORY: Breath sounds diminished bibasilarly, equal bilaterally. No wheezes and crackles GASTROINTESTINAL: Abdomen soft, non-tender, nondistended. No guarding. MUSCULOSKELETAL: Extremities without clubbing, cyanosis. NEUROLOGICAL: Awake and alert. Motor and sensory grossly within normal limits. Normal speech. Procedures None A/P Problem List: (1) Atrial fibrillation with RVR ICD Code: I48.91 Status: Acute (2) Congestive heart failure ICD Code: I50.9 Status: Acute (3) Hypertension ICD Code: I10 Status: Chronic (4) Lower extremity edema ICD Code: R60.0 Status: Acute (5) Hyponatremia ICD Code: E87.1 Status: Acute (6) Hyperbilirubinemia ICD Code: E80.6 Status: Acute Assessment and Plan Mrs. Hood is an 85 year-old female with a past medical history of hypertension and stroke who presented to the ER on 09/06/2016 with progressively worsening shortness of breath with lower extremity edema. 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 CXR showed bilateral effusions. Hyponatremia on labs with sodium 130, T. Bili elevated at 2.5, Troponin I 0.04 and BNP 461. Atrial fibrillation with RVR, new onset - RVR will increase Cardizem drip for the moment then Wean and discontinue Cardizem drip keep heart rate less than 100 and, continue Cardizem by mouth and ct anticoagulation patient with [id number] score of 7. Patient prefers to be on another novel agent aware of similar allergic reaction to savaysa. She does not want to be on Coumadin - Consulted cardiology follow-up echocardiogram with LVH, diastolic dysfunction , right pleural effusion and pericardial effusion - Continuous cardiac telemetry - 09/09. CVR will dc drip and monitor - 09/10 RVR started on Lopressor. Monitor Acute diastolic heart failure, new onset . Improving - Restart Lasix 20 mg daily - Strict intake and output every shift - Monitor vital signs every 4 hours - Heart healthy diet - Physical therapy to prevent debilitation Left lower extremity swelling Calf pain bilaterally - Bilateral doppler u/s of lower extremities without DVT Hypertension - recommended patient to d/c PRN clonidine - Continue to hold valsartan - monitor trends in blood pressure readings and adjust medications as indicated Hyponatremia likely related to CHF and HCTZ - Asymptomatic - Recheck BMP in a.m. and follow trends Hypokalemia secondary to diuresis - Repeat lab in the morning Hyperbilirubinemia - T. Bili elevated at 2.5 - follow trends Leukocytosis likely reactive. Improved Dermatitis likely drug-related ( likely savaysa vs Kcl and cardizem(last two meds pt still taking and rash has resolved ) vs contact dermatitis) -No respiratory compromise. Ct symptomatic treatment with IV steroids, benadryl. -improved DVT prophylaxis -Pradaxa Discharge Planning not ready for dc to rehab maybe in am Problem Qualifiers (1) Lower extremity edema: Qualified Code: R60.0 - Edema of left lower extremity Santo Kate MD Sep 10, 2016 14:36
[2016-09-11] VITALS: BP 125/70; PULSE 75; RESP 16; TEMP 97.3; O2SAT 96
[2016-09-11 04:15] VITALS: BP 157/72; PULSE 86; RESP 18; TEMP 97.7; O2SAT 98
[2016-09-11 08:00] VITALS: BP 145/72; PULSE 106; RESP 20; TEMP 97.3; O2SAT 100
[2016-09-11] MEDS ORDERED: METO-309 PO (09:06)
[2016-09-11] MEDS: FUROSEMIDE 20 MG TAB PO SCH (09:18)
[2016-09-11] MEDS: predniSONE 20 MG TAB PO SCH (09:18)
[2016-09-11] MEDS: DABIGATRAN ETEXILATE 150 MG CAP PO SCH (09:18)
[2016-09-11] MEDS: DILTIAZEM HCL 60 MG TAB PO SCH ×2 (09:18→14:17)
[2016-09-11] MEDS: POTASSIUM CHLORIDE 20 MEQ CONTROLLED RELEASE TAB PO SCH (09:19)
[2016-09-11] MEDS: SODIUM CHLORIDE 0.9% FLUSH 5 ML FLUSH FLUSH SCH (09:19)
[2016-09-11] MEDS ORDERED: METOPROLOL TARTRATE 50 MG TAB PO SCH (10:00)
[2016-09-11 12:00] VITALS: BP 158/74; PULSE 75; RESP 22; TEMP 97.2; O2SAT 100
--- NOTE | 2016-09-11 12:02 | HHI.PR ---
Subjective Remarks Follow-up A. fib. Currently CVR patient without complaints. Discussed with daughter requesting medicines for anxiety patient on Atarax. Discussed with RN stable for discharge Objective Vitals Vital Signs Date Time Temp Pulse Resp B/P Pulse Ox O2 Delivery O2 Flow Rate FiO2 09/11/16 08:00 97.3 106 20 145/72 100 09/11/16 04:15 97.7 86 18 157/72 98 09/11/16 00:00 97.3 75 16 125/70 96 09/10/16 20:15 97.6 77 18 144/93 99 09/10/16 20:03 88 09/10/16 20:00 Nasal Cannula 2.00 09/10/16 16:00 97.8 89 20 139/58 94 09/10/16 12:00 97.3 84 18 133/65 98 I/O 09/10/16 09/10/16 09/10/16 09/11/16 09/11/16 09/11/16 07:00 15:00 23:00 07:00 15:00 23:00 Intake Total 80 ml 600 ml 240 ml 240 ml Output Total 100 ml 400 ml Balance -20 ml 200 ml 240 ml 240 ml Intake Oral 80 ml 600 ml 240 ml 240 ml Output Urine Total 100 ml 400 ml # Voids 3 1 1 # Bowel Movements 1 Result Diagram: 09/08/16 0608 09/10/16 0525 Objective Remarks GENERAL: This is a thin, elderly, frail-appearing female patient, in no apparent distress. SKIN: Maculopapular rash mainly in the back resolved HEAD: Atraumatic. Normocephalic. EYES: No scleral icterus. No injection or drainage. ENT: Nose without bleeding, purulent drainage. NECK: Trachea midline. No JVD or lymphadenopathy. No stridor CARDIOVASCULAR: Irregularly irregular rate and rhythm without murmurs, gallops, or rubs. Bilateral extremity pitting edema noted. RESPIRATORY: Breath sounds diminished bibasilarly, equal bilaterally. No wheezes and crackles GASTROINTESTINAL: Abdomen soft, non-tender, nondistended. No guarding. MUSCULOSKELETAL: Extremities without clubbing, cyanosis. NEUROLOGICAL: Awake and alert. Motor and sensory grossly within normal limits. Normal speech. Procedures None A/P Problem List: (1) Atrial fibrillation with RVR ICD Code: I48.91 Status: Acute (2) Congestive heart failure ICD Code: I50.9 Status: Acute (3) Hypertension ICD Code: I10 Status: Chronic (4) Lower extremity edema ICD Code: R60.0 Status: Acute (5) Hyponatremia ICD Code: E87.1 Status: Acute (6) Hyperbilirubinemia ICD Code: E80.6 Status: Acute Assessment and Plan Mrs. Hood is an 85 year-old female with a past medical history of hypertension and stroke who presented to the ER on 09/06/2016 with progressively worsening shortness of breath with lower extremity edema. 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 CXR showed bilateral effusions. Hyponatremia on labs with sodium 130, T. Bili elevated at 2.5, Troponin I 0.04 and BNP 461. Atrial fibrillation with RVR, new onset - RVR will increase Cardizem drip for the moment then Wean and discontinue Cardizem drip keep heart rate less than 100 and, continue Cardizem by mouth and ct anticoagulation patient with [id number] score of 7. Patient prefers to be on another novel agent aware of similar allergic reaction to savaysa. She does not want to be on Coumadin. Tolerating Pradaxa - Consulted cardiology follow-up echocardiogram with LVH, diastolic dysfunction , right pleural effusion and pericardial effusion - Continuous cardiac telemetry - 09/09. CVR will dc drip and monitor - 09/10 RVR started on Lopressor. Monitor - 09/11 CVR increase BB for better control Acute diastolic heart failure, new onset . Improving - Restart Lasix 20 mg daily - Strict intake and output every shift - Monitor vital signs every 4 hours - Heart healthy diet - Physical therapy to prevent debilitation Left lower extremity swelling Calf pain bilaterally - Bilateral doppler u/s of lower extremities without DVT Hypertension - recommended patient to d/c PRN clonidine - Continue to hold valsartan - monitor trends in blood pressure readings and adjust medications as indicated Hyponatremia likely related to CHF and HCTZ - Asymptomatic -Monitor BMP Hypokalemia secondary to diuresis - Repeat lab in the morning Hyperbilirubinemia - T. Bili elevated at 2.5 - follow trends Leukocytosis likely reactive. Improved Dermatitis likely drug-related ( likely savaysa vs Kcl and cardizem(last two meds pt still taking and rash has resolved ) vs contact dermatitis) -No respiratory compromise. Ct symptomatic treatment with IV steroids, benadryl. -improved DVT prophylaxis -Pradaxa Discharge Planning Stable for discharge Problem Qualifiers (1) Lower extremity edema: Qualified Code: R60.0 - Edema of left lower extremity Santo Kate MD Sep 11, 2016 12:01 pm
[2016-09-11] MEDS ORDERED: HYDR-755 PO (12:03)
--- NOTE | 2016-09-11 12:05 | HHI.DS ---
Discharge Summary Admission Date Sep 06, 2016 at 7:54 pm Discharge Date: Sep 11, 2016 Admitting Diagnosis Chaim nowak RVR, volume overload, CHF (1) Atrial fibrillation with RVR ICD Code: I48.91 Diagnosis: Principal (2) Congestive heart failure ICD Code: I50.9 Diagnosis: Principal (3) Hypertension ICD Code: I10 Diagnosis: Secondary (4) Lower extremity edema ICD Code: R60.0 Diagnosis: Secondary (5) Hyponatremia ICD Code: E87.1 Diagnosis: Principal (6) Hyperbilirubinemia ICD Code: E80.6 Diagnosis: Secondary Procedures None Brief History - From Admission Mrs. Hood is an 85 year-old female with a past medical history of hypertension and CVA who presented to the ER on 09/06/2016 with progressively worsening shortness of breath with lower extremity edema. The patient's daughter was giving her Lasix (which she frequently does not take because of inconvenience of frequent urination) for the past 2 days with no increase in urination and no decrease in peripheral edema. 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 CXR showed bilateral effusions. Hyponatremia on labs with sodium 130, T. Bili elevated at 2.5, Troponin I 0.04 and BNP 461. The patient is seen in the ER with her daughter at the bedside. She reports that she has been experiencing shortness of breath that is worse with exertion since June but it has been increasing in severity. She denies any accompanying cough or sputum production. She has had no recent long car or airplane rides. She states she has been having nausea when eating and dry heaves. Until about a year ago, she was living independently and able to perform all of her own ADLs. Now she has to live with part of the time with her son (Marck Vazquez) and part of the time with her daughter (Claudine Turner) so that they can share the job of caring for their mother. She has had an unintentional weight loss of about 40 pounds since last September that she has recently gained some of that weight back and has had an increase in appetite lately. There is question of some thyroid dysfunction that was being evaluated by her primary care physician in [facility] (where her son lives). She has never had a colonoscopy or EGD. 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 Denies CAD, CHF, diabetes mellitus, atrial fibrillation, asthma, COPD, no liver probs, kidney probs, no seizures, no cancer Last stress test stress test "many" years ago but at least > 2 years ago. CBC/BMP: 09/08/16 0608 09/10/16 0525 Significant Findings Laboratory Tests Test 09/09/16 09/10/16 06:15 05:25 Sodium Level 131 MEQ/L 130 MEQ/L (136-145) (136-145) Chloride Level 91 MEQ/L 91 MEQ/L (98-107) (98-107) Estimat Glomerular Filtration 56 ML/MIN (>89) Rate Random Glucose 137 MG/DL 113 MG/DL (74-106) (74-106) Imaging Last Impressions Lower Extremity Ultrasound 09/07/16 0000 Signed Impressions: Service Date/Time: Wednesday, September 07, 2016 09:53 - CONCLUSION: Normal examination. No evidence DVT Bravo Golden MD Head CT 09/07/16 0000 Signed Impressions: Service Date/Time: Wednesday, September 07, 2016 19:05 - CONCLUSION: Chronic and small vessel ischemic changes without any evidence for acute hemorrhage or mass effect. Theresa Mccoy MD Chest X-Ray 09/06/16 1831 Signed Impressions: Service Date/Time: August 18:54 - CONCLUSION: Bilateral effusions. Thomas Brennan MD PE at Discharge GENERAL: This is a thin, elderly, frail-appearing female patient, in no apparent distress. SKIN: Maculopapular rash mainly in the back resolved HEAD: Atraumatic. Normocephalic. EYES: No scleral icterus. No injection or drainage. ENT: Nose without bleeding, purulent drainage. NECK: Trachea midline. No JVD or lymphadenopathy. No stridor CARDIOVASCULAR: Irregularly irregular rate and rhythm without murmurs, gallops, or rubs. Bilateral extremity pitting edema noted. RESPIRATORY: Breath sounds diminished bibasilarly, equal bilaterally. No wheezes and crackles GASTROINTESTINAL: Abdomen soft, non-tender, nondistended. No guarding. MUSCULOSKELETAL: Extremities without clubbing, cyanosis. NEUROLOGICAL: Awake and alert. Motor and sensory grossly within normal limits. Normal speech. Hospital Course Mrs. Hood is an 85 year-old female with a past medical history of hypertension and stroke who presented to the ER on 09/06/2016 with progressively worsening shortness of breath with lower extremity edema. 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 CXR showed bilateral effusions. Hyponatremia on labs with sodium 130, T. Bili elevated at 2.5, Troponin I 0.04 and BNP 461. Atrial fibrillation with RVR, new onset - RVR will increase Cardizem drip for the moment then Wean and discontinue Cardizem drip keep heart rate less than 100 and, continue Cardizem by mouth and ct anticoagulation patient with [id number] score of 7. Patient prefers to be on another novel agent aware of similar allergic reaction to savaysa. She does not want to be on Coumadin. Tolerating Pradaxa - Consulted cardiology follow-up echocardiogram with LVH, diastolic dysfunction , right pleural effusion and pericardial effusion - Continuous cardiac telemetry - 09/09. CVR will dc drip and monitor - 09/10 RVR started on Lopressor. Monitor - 09/11 CVR increase BB for better control Acute diastolic heart failure, new onset . Improving - Restart Lasix 20 mg daily - Strict intake and output every shift - Monitor vital signs every 4 hours - Heart healthy diet - Physical therapy to prevent debilitation Left lower extremity swelling Calf pain bilaterally - Bilateral doppler u/s of lower extremities without DVT Hypertension - recommended patient to d/c PRN clonidine - Continue to hold valsartan - monitor trends in blood pressure readings and adjust medications as indicated Hyponatremia likely related to CHF and HCTZ - Asymptomatic -Monitor BMP Hypokalemia secondary to diuresis - Repeat lab in the morning Hyperbilirubinemia - T. Bili elevated at 2.5 - follow trends Leukocytosis likely reactive. Improved Dermatitis likely drug-related ( likely savaysa vs Kcl and cardizem(last two meds pt still taking and rash has resolved ) vs contact dermatitis) -No respiratory compromise. Ct symptomatic treatment with IV steroids, benadryl. -improved DVT prophylaxis -Pradaxa Pt Condition on Discharge: Stable Discharge Disposition: Discharge to SNF Discharge Time: > 30 minutes Discharge Instructions DIET: Follow Instructions for: Heart Healthy Diet Activities you can perform: Regular-No Restrictions Activities to Avoid: Driving Follow up Referrals: Cardiology - 1 Week PCP Follow-up - 1 Week New Orders: BASIC METABOLIC PROF - Next Day New Medications: Diltiazem ER 24 HR (Cardizem LA) 240 Mg Jodee 240 MG PO DAILY Regulate Heart Beat #30 Ref 0 TAB Dabigatran (Pradaxa) 150 Mg Cap 150 MG PO BID Prevent Blood Clot #60 CAP Hydroxyzine HCl (Hydroxyzine HCl) 10 Mg Tab 10 MG PO Q8H PRN anxiety #90 TAB Metoprolol Tartrate (Lopressor) 50 Mg Tab 75 MG PO Q12HR Regulate Heart Beat #60 TAB Potassium Chloride Microencaps (Potassium Chloride Microencaps) 20 Meq Tab 20 MEQ PO DAILY Electrolyte Replacement #30 TAB Prednisone (Prednisone) 20 Mg Tab 20 MG PO DAILY Allergy Management #1 TAB Continued Medications: Furosemide (Lasix) 20 Mg Tab 20 MG PO DAILY #30 Ref 0 TAB Santo Kate MD Sep 11, 2016 12:05 pm
== END 2016-09-11 15:00 | DRG 308 ==
LOC: NEPC 16:59 → NEDA 19:54 → NEDH 23:54 → N04A 09-07 18:18
PROVIDERS: ADMIT Internal Medicine; ATTEND Internal Medicine
DX: I48.91 Unspecified atrial fibrillation (principal); I50.31 Acute diastolic (congestive) heart failure; E87.1 Hypo-osmolality and hyponatremia; I31.3 Pericardial effusion (noninflammatory); I10 Essential (primary) hypertension; Z86.73 Personal history of transient ischemic attack (TIA), and cerebral infarction without residual deficits; G25.2 Other specified forms of tremor; F41.9 Anxiety disorder, unspecified; Z87.891 Personal history of nicotine dependence; E80.6 Other disorders of bilirubin metabolism; M79.669 Pain in unspecified lower leg; E87.6 Hypokalemia; D72.829 Elevated white blood cell count, unspecified; L30.9 Dermatitis, unspecified; T50.2X5A Adverse effect of carbonic-anhydrase inhibitors, benzothiadiazides and other diuretics, initial encounter; E78.5 Hyperlipidemia, unspecified; H54.41 Blindness, right eye, normal vision left eye; H35.30 Unspecified macular degeneration; Z51.5 Encounter for palliative care
CPT/HCPCS: 70450; 71010; 80048; 80053; 81001; 82550; 83735; 83880; 84443; 84484; 85025; 85610; 93005; 93306; 93970; 96374; 96375; J1650; J1940; J2405; J2930; J3480; J7512

== ENCOUNTER 2016-12-08 11:16 | Inpatient (IN) | payer MEDICARE, OTHER ==
[~2016-12-08] VITALS: Ht 165.1 cm; Wt 51.3 kg
[2016-12-08] VITALS (7 sets, daily range): BP systolic 128–139; BP diastolic 66–89; PULSE 69–97; RESP 16–20; TEMP 97.8–97.9; O2SAT 91–95
[~2016-12-08 11:16] MED LIST: CLON0.1T PO; DILT1TAB2 PO; FURO1TAB62 PO; HYDR-755 PO; METO-309 PO; METO100T PO; POTA20TA5 PO; PRAD150C PO; PRED20 PO; VALS160T4 PO
[2016-12-08] MEDS ORDERED: FUROSEMIDE 40 MG/4 ML VIAL IV PUSH ONE (11:45)
[2016-12-08] MEDS ORDERED: SODIUM CHLORIDE 0.9% FLUSH 10 ML FLUSH IVF PRN (11:45)
[2016-12-08 11:58] LABS: AUTOMATED NEUTROPHIL # 10.8 TH/MM3 (1.8-7.7); BASOPHIL # 0.1 TH/MM3 (0-0.2); BASOPHIL % 0.5 % (0.0-2.0); EOSINOPHIL # 0.1 TH/MM3 (0-0.4); EOSINOPHIL % 0.9 % (0.0-4.0); HEMATOCRIT 41.6 % (35.0-46.0); HEMO FLAGS DIFF FINAL; LYMPH % 16.4 % (9.0-44.0); LYMPHOCYTE # 2.4 TH/MM3 (1.0-4.8); MEAN CELL VOLUME 83.1 FL (80.0-100.0); MEAN CORPUSCULAR HEMOGLOBIN 28.4 PG (27.0-34.0); MEAN CORPUSCULAR HGB CONC 34.1 % (32.0-36.0); MONO % 6.9 % (0.0-8.0); NEUT % 75.3 % (16.0-70.0); PLATELET COUNT 238 TH/MM3 (150-450); RED CELL DISTRIBUTION WIDTH 17.1 % (11.6-17.2); WHITE BLOOD COUNT 14.4 TH/MM3 (4.0-11.0)
[2016-12-08 12:07] LABS: APTT (PATIENT) 39.2 SEC (24.3-30.1); INTERNATIONAL NORMALIZED RATIO 1.8 RATIO
[2016-12-08 12:24] LABS: ALKALINE PHOSPHATASE 136 U/L (45-117); ALT (GPT) 41 U/L (10-53); ANION GAP 10 MEQ/L (5-15); AST (GOT) 34 U/L (15-37); BICARBONATE 25.9 MEQ/L (21.0-32.0); BLOOD UREA NITROGEN 20 MG/DL (7-18); CHLORIDE 96 MEQ/L (98-107); CREATINE KINASE 50 U/L (26-192); GLOMERULAR FILTRATION RATE 58 ML/MIN (>89); MAGNESIUM 2.2 MG/DL (1.5-2.5); SODIUM (NA) 132 MEQ/L (136-145); TOTAL BILIRUBIN ADULT 1.7 MG/DL (0.2-1.0)
--- NOTE | 2016-12-08 12:26 | RADRPT ---
EXAM DATE/TIME: 12/08/2016 11:41 [facility] COMPARISON: CHEST SINGLE AP, September 06, 2016, 18:54. INDICATIONS : Chest Pain and Leg Swelling MEDICAL HISTORY : Cardiovascular disease. Hypertension SURGICAL HISTORY : Appendectomy. ENCOUNTER: Initial ACUITY: 1 day PAIN SCORE: 5/10 LOCATION: Bilateral chest FINDINGS: There are bilateral pleural effusions right greater than left. Cardiomegaly and basilar atelectasis. Right basilar consolidation. Osseous structures are intact. CONCLUSION: No significant change has occurred. Krystian Marinelli MD on December 08, 2016 at 12:24 Board Certified Radiologist. This report was verified electronically.
--- NOTE | 2016-12-08 14:02 | PD ---
HPI Chief Complaint: Respiratory Distress Time Seen by Provider: 11:26 Travel History International Travel<30 days: No Contact w/Intl Traveler<30days: No Traveled to known affect area: No History of Present Illness HPI Patient is an [age]-year-old female with a history of CHF presents with her daughter for evaluation of leg swelling and some mild shortness of breath. Patient states the symptoms been gradually worsening over the past few days. The daughter states the patient was able to walk to the bathroom this morning as well as walk from the car to the emergency department. On my arrival the patient appears to be very limited mobility. Patient was here in August with similar circumstances and was admitted. She is yet to follow up with a jukebox operator but has an appointment to do so in the future. She does not have a jukebox operator who follows with denies any cough denies any congestion denies any fevers. Denies abdominal pain nausea vomiting diarrhea. States symptoms been gradually worsening and onset Over the past few days PFSH Past Medical History Hx Anticoagulant Therapy: Yes (xarelto) Heart Rhythm Problems: Yes Cancer: No Cardiovascular Problems: Yes (afib/chf) Congestive Heart Failure: Yes Cerebrovascular Accident: Yes Endocrine: No Genitourinary: No Hypertension: Yes Immune Disorder: No Musculoskeletal: No Neurologic: Yes Psychiatric: No Reproductive: No Respiratory: No ?: Not Past Surgical History Appendectomy: Yes Body Medical Devices: KAMAR IN STOMACH Social History Alcohol Use: No Tobacco Use: No Substance Use: No Allergies-Medications (Allergen,Severity, Reaction): Coded Allergies: Morphine (Verified Allergy, Severe, Hives, 09/06/16) Reported Meds & Prescriptions Reported Meds & Active Scripts Active Lopressor (Metoprolol Tartrate) 50 Mg Tab 75 Mg PO Q12HR Prednisone 20 Mg Tab 20 Mg PO DAILY Reported Verapamil ER 24 HR (Verapamil HCl) 240 Mg Tab 240 Mg PO HS Xarelto (Rivaroxaban) 20 Mg Tab 20 Mg PO DAILY Potassium Chloride ER (Potassium Chloride) 10 Meq Cap 10 Meq PO DAILY Lasix (Furosemide) 20 Mg Tab 20 Mg PO DAILY Review of Systems Except as stated in HPI: all other systems reviewed are Neg Physical Exam Narrative GENERAL: Well-developed, thin in no obvious distress SKIN: Focused skin assessment warm/dry. HEAD: Atraumatic. Normocephalic. EYES: Pupils equal and round. No scleral icterus. No injection or drainage. ENT: No nasal bleeding or discharge. Mucous membranes pink and moist. NECK: Trachea midline. No JVD. CARDIOVASCULAR: Regular rate and rhythm. No murmur appreciated. RESPIRATORY: No accessory muscle use. Clear to auscultation. Breath sounds equal bilaterally. GASTROINTESTINAL: Abdomen soft, non-tender, nondistended. Hepatic and splenic margins not palpable. Plus bilateral equal pulses in all 4 extremities. MUSCULOSKELETAL: No obvious deformities. No clubbing. No cyanosis. 2+ pitting edema from just above the knee distally to the foot. NEUROLOGICAL: Awake and alert. No obvious cranial nerve deficits. Motor grossly within normal limits. Normal speech. PSYCHIATRIC: Appropriate mood and affect; insight and judgment normal. Data Data Last Documented VS Vital Signs Date Time Temp Pulse Resp B/P Pulse Ox O2 Delivery O2 Flow Rate FiO2 12/08/16 13:05 82 18 136/83 95 12/08/16 11:49 Room Air 12/08/16 11:18 97.8 Orders Electrocardiogram (12/08/16 11:32) B-Type Natriuretic Peptide (12/08/16 11:32) Ckmb (Isoenzyme) Profile (12/08/16 11:32) Complete Blood Count With Diff (12/08/16 11:32) Comprehensive Metabolic Panel (12/08/16 11:32) Magnesium (Mg) (12/08/16 11:32) Prothrombin Time / Inr (Pt) (12/08/16 11:32) Act Partial Throm Time (Ptt) (12/08/16 11:32) Troponin I (12/08/16 11:32) Chest, Single Ap (12/08/16 11:32) Ecg Monitoring (12/08/16 11:32) Bilateral Bp Monitoring (12/08/16 11:32) Iv Access Insert/Monitor (12/08/16 11:32) Oximetry (12/08/16 11:32) Oxygen Administration (12/08/16 11:32) Sodium Chloride 0.9% Flush (Ns Flush) (12/08/16 11:45) Furosemide Inj (Lasix Inj) (12/08/16 11:45) Admit Order (Ed Use Only) (12/08/16 ) Labs Laboratory Tests Test 12/08/16 11:45 White Blood Count 14.4 TH/MM3 Red Blood Count 5.00 MIL/MM3 Hemoglobin 14.2 GM/DL Hematocrit 41.6 % Mean Corpuscular Volume 83.1 FL Mean Corpuscular Hemoglobin 28.4 PG Mean Corpuscular Hemoglobin 34.1 % Concent Red Cell Distribution Width 17.1 % Platelet Count 238 TH/MM3 Mean Platelet Volume 9.0 FL Neutrophils (%) (Auto) 75.3 % Lymphocytes (%) (Auto) 16.4 % Monocytes (%) (Auto) 6.9 % Eosinophils (%) (Auto) 0.9 % Basophils (%) (Auto) 0.5 % Neutrophils # (Auto) 10.8 TH/MM3 Lymphocytes # (Auto) 2.4 TH/MM3 Monocytes # (Auto) 1.0 TH/MM3 Eosinophils # (Auto) 0.1 TH/MM3 Basophils # (Auto) 0.1 TH/MM3 CBC Comment DIFF FINAL Differential Comment Prothrombin Time 20.0 SEC Prothromb Time International 1.8 RATIO Ratio Activated Partial 39.2 SEC Thromboplast Time Sodium Level 132 MEQ/L Potassium Level 4.0 MEQ/L Chloride Level 96 MEQ/L Carbon Dioxide Level 25.9 MEQ/L Anion Gap 10 MEQ/L Blood Urea Nitrogen 20 MG/DL Creatinine 0.92 MG/DL Estimat Glomerular Filtration 58 ML/MIN Rate Random Glucose 121 MG/DL Calcium Level 8.6 MG/DL Magnesium Level 2.2 MG/DL Total Bilirubin 1.7 MG/DL Aspartate Amino Transf 34 U/L (AST/SGOT) Alanine Aminotransferase 41 U/L (ALT/SGPT) Alkaline Phosphatase 136 U/L Total Creatine Kinase 50 U/L Troponin I LESS THAN 0.02 NG/ML B-Type Natriuretic Peptide 704 PG/ML Total Protein 6.5 GM/DL Albumin 3.3 GM/DL [facility] Medical Decision Making Medical Screen Exam Complete: Yes Emergency Medical Condition: Yes Differential Diagnosis CHF exacerbation, anemia, pedal edema, peripheral edema, pulmonary edema, kidney injury. Narrative Course Patient was roomed emergency department, she is satting well. She was given Lasix in the emergency department. She appears to fairly limited mobility and I 'm questioning whether she is actually able to ambulate from the car into the house. Her respiratory status is intact however the chest x-ray shows a chronic pleural effusion Last 24 hours Impressions Chest X-Ray 12/08/16 1132 Signed Impressions: Service Date/Time: Thursday, December 08, 2016 11:41 - CONCLUSION: No significant change has occurred. Krystian Marinelli MD There is no pulmonary edema at this time. The results were discussed at length with the patient and her daughter and they are comfortable going home at this time. I discussed the patient with hospitalist on-call for observation status and they're agreeable. Diagnosis Primary Impression: Acute exacerbation of CHF (congestive heart failure) Qualified Code: I50.9 - Acute on chronic congestive heart failure, unspecified congestive heart failure type Admitting Information Admitting Physician Requests: Observation Condition: Stable Moisés Osborne MD Dec 08, 2016 14:02
[2016-12-08] MEDS ORDERED: NALOXONE HCL 0.4 MG/ML AMP IV PRN (14:45)
[2016-12-08] MEDS: POTASSIUM CHLORIDE 20 MEQ CONTROLLED RELEASE TAB PO SCH (14:45)
[2016-12-08] MEDS ORDERED: hydrOXYzine HCL 10 MG TAB PO PRN (14:45)
[2016-12-08] MEDS ORDERED: ONDANSETRON HCL 4 MG/2 ML VIAL IVP PRN (14:45)
[2016-12-08] MEDS ORDERED: ACETAMINOPHEN 325 MG TAB PO PRN (14:45)
[2016-12-08] MEDS ORDERED: NON-FORMULARY DRUG (Valsartan-Hydrochlorothiazide 1 TAB) PO SCH (14:45)
[2016-12-08] MEDS: DOCUSATE SODIUM 100 MG CAP PO SCH ×2 (14:45→20:28)
[2016-12-08] MEDS ORDERED: ZOLPIDEM TARTRATE 5 MG TAB PO PRN (14:45)
[2016-12-08] MEDS ORDERED: HYDROCHLOROTHIAZIDE 12.5 MG CAP PO SCH (15:00)
[2016-12-08] MEDS ORDERED: VALSARTAN 160 MG TAB PO SCH (15:00)
[2016-12-08] MEDS ORDERED: DILTIAZEM-CD 240 MG CAP ER PO SCH (15:00)
[2016-12-08] MEDS ORDERED: POTA10CA PO (15:55)
[2016-12-08] MEDS ORDERED: XARE20TA PO (15:55)
[2016-12-08] MEDS ORDERED: VERA1TAB17 PO (15:55)
[2016-12-08] MEDS: RIVAROXABAN 20 MG TAB PO SCH (16:15)
[2016-12-08] MEDS: PANTOPRAZOLE SOD 20 MG DELAYED RELEASE TAB PO SCH (16:30)
--- NOTE | 2016-12-08 16:47 | MH ---
DATE OF ADMISSION: 12/08/2016 CHIEF COMPLAINT: Respiratory distress. HISTORY OF PRESENT ILLNESS: The patient is a very pleasant 86-year-old white female who presented to the emergency room with complaints of worsening shortness of breath. As per the patient and the daughter who is the historian, the patient has a history of hypertension, congestive heart failure, history of CVA and the patient has noticed that she has been having increasing shortness of breath as well as swelling of her bilateral lower extremities for the last four to seven days. 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 In the emergency room, a chest x-ray done showed pleural effusion so the patient has been admitted for further evaluation and management. PAST MEDICAL HISTORY: 1. Atrial fibrillation. 2. Congestive heart failure. 3. Hypertension. 4. Hyperlipidemia. 5. History of CVA. 6. Legally blind. 7. Macular degeneration. 8. History of diverticulitis. PAST SURGICAL HISTORY: 1. [place] in the stomach secondary to diverticulitis. 2. Appendectomy. SOCIAL HISTORY: Denies any alcohol, tobacco or illicit drug use. ALLERGIES: 1. MORPHINE. FAMILY HISTORY: Significant heart problems in the family. ACTIVE MEDICATIONS: Please see the reconciled medication list. REVIEW OF SYSTEMS: CONSTITUTIONAL: Denies any generalized weakness. HEAD, EYES, EARS, NOSE, THROAT: Denies any headache, eye, ear, nose or throat pain. CARDIOVASCULAR: Denies any chest pain or palpitations. RESPIRATORY: Does complain of shortness of breath which has been worsening. GASTROINTESTINAL: Denies any abdominal pain, nausea or vomiting or diarrhea. MUSCULOSKELETAL: Does complain of progressively increasing swelling in both legs. NEUROLOGICAL: No seizures. ENDOCRINE: No diabetes. ALLERGY/IMMUNOLOGIC: No easy bruising tendency. PHYSICAL EXAMINATION: GENERAL: The patient is a frail-looking 85-year-old white female who is lying in bed in no acute distress. This is status post IV Lasix. VITAL SIGNS: Blood pressure is 136/83, pulse is 82, respirations are 18, pulse oximetry is 95% on room air. Temperature is 97.8. HEAD, EYES, EARS, NOSE, THROAT: Head is normocephalic and atraumatic. The patient is legally blind. Oral mucosa is moist. NECK: The neck is supple. No jugular venous distention. LUNGS: Decreased breath sounds bilaterally with bilateral rales. CARDIOVASCULAR: Irregularly irregular. No murmur. ABDOMEN: The abdomen is soft, nontender and nondistended. Bowel sounds heard in all four quadrants. EXTREMITIES: 3+ pedal edema. No cyanosis or congestion. NEUROLOGIC EXAM: The patient is alert and awake x4. No focal deficits noted. PSYCHIATRIC: Cooperative. Appropriate mood and affect. DIAGNOSTIC STUDIES: WBCs of 14.4, hemoglobin 14.2, hematocrit 41.6, platelet count 238,000. PT is 20. INR is 1.8. Sodium is 132, potassium 4.0, BUN is 20, creatinine is 0.92, AST is 34, ALT is 41. Troponin I first set is less than 0.02. BNP is 704. IMAGING STUDIES: Chest x-ray shows bilateral pleural effusions, right greater than left, cardiomegaly and bibasilar atelectasis, right basilar consolidation. EKGS: A 12-lead EKG shows irregular rhythm with a heart rate of 82. DIAGNOSTIC IMPRESSION: 1. Acute exacerbation of congestive heart failure. 2. Bilateral pleural effusions. 3. Atrial fibrillation with controlled ventricular rate. 4. Hypertension. 5. History of CVA. 6. Macular degeneration. 7. Legally blind. PLAN: 1. Will admit the patient under observation status. 2. Start the patient on a heart-healthy diet. 3. Check cardiac enzymes q. 6 hours x2. 4. Will request a cardiology consult. 5. Will request 2-D echocardiogram. 6. Will also check the lipid profile as well as TSH and free T4. 7. Will start the patient on IV Lasix. 8. Monitor BMP closely. 9. Will continue home medications as appropriate. 10. DVT prophylaxis with Xarelto. 11. GI prophylaxis with proton pump inhibitor. Further management depends upon the hospital course. Will monitor the patient closely during her hospital stay. THAIS
--- NOTE | 2016-12-08 18:51 | EKG ---
Date Performed: 12/08/2016 Time Performed: 11:39:43 PTAGE: 86 years EKG: ATRIAL FLUTTER/FIBRILLATION POSSIBLE INFERIOR MYOCARDIAL INFARCTION ABNORMAL RHYTHM ECG PREVIOUS TRACING : 09/07/2016 04.57 Compared to the previous tracing rate now controlled DOCTOR: Jamey Ontiveros Interpretating Date/Time 12/08/2016 18:50:12
[2016-12-08] MEDS: METOPROLOL TARTRATE 50 MG TAB PO SCH (20:28)
--- NOTE | 2016-12-08 20:41 | MB ---
cc: DIAMOND VEGA MD DATE OF CONSULTATION 12/08/16 1932 REASON FOR CONSULTATION Shortness of breath/heart failure exacerbation. HISTORY OF PRESENT ILLNESS 86-year-old female with past medical history significant for atrial fibrillation on chronic oral anticoagulation, hypertension, hyperlipidemia, CVA that presented to the emergency department with daughter with complaints of worsening shortness of breath for the last couple of days as well as bilateral lower extremity edema. Cardiology has been consulted for further management and evaluation. The patient denied chest pain, palpitations, syncope, noncompliance with medications, fevers, chills, nausea, vomiting, diarrhea. REVIEW OF SYSTEMS Negative except for the ones mentioned in HPI. PAST MEDICAL HISTORY 1. Atrial fibrillation, 2. Hypertension, 3. Hyperlipidemia, 4. History of CVA. 5. Legally blind, macular degeneration 6. Diverticulitis PAST SURGICAL HISTORY 1. [place] in the stomach secondary to diverticulitis 2. Appendectomy. SOCIAL HISTORY No alcohol. No illicit drug use. No tobacco abuse. ALLERGIES MORPHINE FAMILY HISTORY Noncontributory. MEDICATIONS Home medications 1. Lasix 20 mg p.o. daily. 2. Metoprolol 50 mg p.o. daily. 3. Potassium chloride 10 Nancy p.o. daily 4. Prednisone 20 mg p.o. daily 5. Xarelto 20 mg p.o. daily. 6. Verapamil 240 mg p.o. daily. PHYSICAL EXAMINATION VITAL SIGNS: Temperature 97, respiratory rate 18, pulse 82, blood pressure 140/ 80, O2 sat 95% in room air. NECK: Positive JVD, no carotid bruits. HEART: Irregularly irregularly, no murmurs, rubs or gallops. LUNGS: Clear to auscultation bilaterally. Poor respiratory effort. No wheezes or rhonchi or rales. ABDOMEN: Positive bowel sounds, soft, nontender, nondistended. EXTREMITIES: Bilateral +2 edema. No cyanosis. Pulses throughout. LABORATORY DATA CBC - hemoglobin 14, hematocrit 41, platelet count 238, INR 1.8, Sodium 132, potassium 4.0, BUN 20, creatinine 0.92. BNP 704, troponin is less than 0.02. IMAGING STUDIES Chest x-ray - bilateral pleural effusions, cardiomegaly and a right bibasilar consolidation. CARDIOLOGY STUDIES EKG - atrial fibrillation with adequate ventricular response. Echocardiogram done in August 2016 shows moderate tricuspid regurgitation. No wall motion abnormalities and normal LV systolic function with estimated ejection fraction of 70%. ASSESSMENT/PLAN 86-year-old female with above history and findings admitted with shortness of breath and leg edema consistent with heart failure. She remains afebrile and hemodynamically stable, reports feeling better from the shortness of breath. I agree with admission to the hospital for optimization of heart failure therapy. Recommendations: 1.IV diuresis 2. Strict inputs and outputs 3. Daily weights 4. Low-sodium diet. 5. Continue metoprolol and Xarelto. Thank you for the opportunity to take part in the care of this patient. Further therapy to be determined. MD SHAMEKA Gonzalez/ /8:02 PM /8:24 PM THAIS
[2016-12-08] MEDS ORDERED: PILL SPLITTER OTHER PRN (21:00)
[2016-12-08] MEDS ORDERED: DABIGATRAN ETEXILATE 150 MG CAP PO SCH (21:00)
[2016-12-08] MEDS ORDERED: METOPROLOL TARTRATE 100 MG TAB PO SCH (21:00)
[2016-12-09] VITALS (7 sets, daily range): BP systolic 132–178; BP diastolic 65–101; PULSE 74–108; RESP 14–18; TEMP 96.1–97.7; O2SAT 92–98
[2016-12-09 00:29] LABS: ANION GAP 8 MEQ/L (5-15); BICARBONATE 30.6 MEQ/L (21.0-32.0); BLOOD UREA NITROGEN 20 MG/DL (7-18); CHLORIDE 97 MEQ/L (98-107); FREE T4 1.49 NG/DL (0.76-1.46); GLOMERULAR FILTRATION RATE 75 ML/MIN (>89); POTASSIUM 3.3 MEQ/L (3.5-5.1); SODIUM (NA) 136 MEQ/L (136-145)
--- NOTE | 2016-12-09 06:29 | RADRPT ---
EXAM DATE/TIME: 12/09/2016 05:47 [facility] COMPARISON: CHEST SINGLE AP, December 08, 2016, 11:41. INDICATIONS : Shortness of breath, possible pulmonary disease. MEDICAL HISTORY : Cardiovascular disease. Hypertension SURGICAL HISTORY : Appendectomy. ENCOUNTER: Subsequent ACUITY: 2 days PAIN SCORE: 4/10 LOCATION: Bilateral chest FINDINGS: Moderate right and small left pleural effusions with basilar consolidation again noted, not significa ntly changed accounting for differences in technique. No pneumothorax. Heart size stable, upper limits of normal. Thoracic aorta is tortuous and atherosclerotic. CONCLUSION: No significant change right greater than left effusions and basilar consolidation. Thomas Whitt MD on December 09, 2016 at 6:27 Board Certified Radiologist. This report was verified electronically.
[2016-12-09 07:05] LABS: HDL CHOLESTEROL 53.5 MG/DL (40.0-60.0)
[2016-12-09] MEDS: DOCUSATE SODIUM 100 MG CAP PO SCH ×2 (09:00→21:00)
[2016-12-09] MEDS ORDERED: FUROSEMIDE 40 MG/4 ML VIAL IV PUSH SCH (09:00)
--- NOTE | 2016-12-09 09:20 | HHI.PR ---
Subjective Remarks 86yr old female seen and examined today. Still with SOB/tylor pedal edema. No CP/palpitations. Daughter in room. Objective Objective Results - Vital Signs Date Time Temp Pulse Resp B/P Pulse Ox O2 Delivery O2 Flow Rate FiO2 12/09/16 04:00 97.4 108 18 148/101 95 12/09/16 00:00 97.1 103 18 148/94 92 12/08/16 22:30 97 12/08/16 20:11 97.9 69 16 129/66 91 12/08/16 18:11 96 128/79 95 12/08/16 15:25 88 20 139/85 94 12/08/16 13:05 82 18 136/83 95 12/08/16 11:49 95 Room Air 12/08/16 11:49 95 Room Air 12/08/16 11:46 95 12/08/16 11:18 97.8 87 16 134/89 93 I/O 12/08/16 12/08/16 12/08/16 12/09/16 12/09/16 12/09/16 07:00 15:00 23:00 07:00 15:00 23:00 Intake Total 120 ml Output Total 500 ml Balance -500 ml 120 ml Intake Oral 120 ml Output Urine Total 500 ml # Voids 2 3 Result Diagram: 12/08/16 1145 12/08/16 2303 Other Results Laboratory Tests Test 12/08/16 12/08/16 12/08/16 12/09/16 11:45 17:30 23:03 05:55 White Blood Count 14.4 Red Blood Count 5.00 Hemoglobin 14.2 Hematocrit 41.6 Mean Corpuscular Volume 83.1 Mean Corpuscular Hemoglobin 28.4 Mean Corpuscular Hemoglobin 34.1 Concent Red Cell Distribution Width 17.1 Platelet Count 238 Mean Platelet Volume 9.0 Neutrophils (%) (Auto) 75.3 Lymphocytes (%) (Auto) 16.4 Monocytes (%) (Auto) 6.9 Eosinophils (%) (Auto) 0.9 Basophils (%) (Auto) 0.5 Neutrophils # (Auto) 10.8 Lymphocytes # (Auto) 2.4 Monocytes # (Auto) 1.0 Eosinophils # (Auto) 0.1 Basophils # (Auto) 0.1 CBC Comment DIFF FINAL Differential Comment Prothrombin Time 20.0 Prothromb Time International 1.8 Ratio Activated Partial 39.2 Thromboplast Time Sodium Level 132 136 Potassium Level 4.0 3.3 Chloride Level 96 97 Carbon Dioxide Level 25.9 30.6 Anion Gap 10 8 Blood Urea Nitrogen 20 20 Creatinine 0.92 0.74 Estimat Glomerular Filtration 58 75 Rate Random Glucose 121 85 Calcium Level 8.6 8.5 Magnesium Level 2.2 Total Bilirubin 1.7 Aspartate Amino Transf 34 (AST/SGOT) Alanine Aminotransferase 41 (ALT/SGPT) Alkaline Phosphatase 136 Total Creatine Kinase 50 Troponin I LESS THAN 0.02 LESS THAN 0.02 LESS THAN 0.02 B-Type Natriuretic Peptide 704 Total Protein 6.5 Albumin 3.3 Free Thyroxine 1.49 Thyroid Stimulating Hormone 1.560 3rd Gen Triglycerides Level 109 Cholesterol Level 208 LDL Cholesterol 133 HDL Cholesterol 53.5 Cholesterol/HDL Ratio 3.88 ROS General: Weakness HEENT: No: Sore Throat, Dysphagia, Other Cardiac: Edema, No: Chest Pain, Palpitations, Other Pulmonary: SOB GI: No: Abdominal Pain, BM, Diarrhea, N/V, Other /[employer]: No: Dysuria, Urgency, Other Neuro/MS: No: Lightheaded, Confusion, Other Psych: No: Anxiety, Depression, Other Skin: No: Itching, Rash, Other Physical Exam Physical Exam PHYSICAL EXAMINATION GENERAL: This is a well-developed, well-nourished female who appears to be in no acute distress. She is alert and awake. HEAD: Normocephalic without any lesion or mass noted. EYES: Perrla. OROPHARYNGEAL: Oropharynx without erythema or edema. MOUTH/THROAT: Buccal mucosa is moist. NECK: Supple. No nuchal rigidity or lymphadenopathy. CARDIAC: Irregularly irregular. Sinus tachy. LUNGS: Basilar rales. ABDOMEN: Soft, nontender, no organomegaly or masses. Bowel sounds are heard in all four quadrants. No rebound. No guarding. EXTREMITIES: 3+ pedal edema. NEUROLOGICAL: Patient mood and affect appropriate. SKIN:Warm and moist PSYCH: Mood and affect appropriate A/P Assessment and Plan Assessment/plan: 1. Acute exacerbation of congestive heart failure. 2. Bilateral pleural effusions. 3. Atrial fibrillation with rapid ventricular rate. 4. Hypertension. 5. History of CVA. 6. Macular degeneration. 7. Legally blind. 8. Hyperlipidemia. PLAN: On IV lasix: increase to 40mg iv bid. Monitor BMP closely. Repeat cxr in am. Heart-healthy diet. Fluid restriction to 1000ml/day. Cardiac enzymes q. 6 hours x2 negative. Appreciate cardiology input. 2D echo pending. BP/HR still not at goal: increase metoprolol to 100mg po bid. Continue verapamil/valsartan. Lipids elevated: Start pravastatin 10mg po qhs. Monitor Lipids/LFTs. DVT prophylaxis with Xarelto. GI prophylaxis with proton pump inhibitor. DW with patient/family/RN. AM labs. Ladonna Carreon MD Dec 09, 2016 09:19
[2016-12-09] MEDS: SODIUM CHLORIDE 0.9% FLUSH 10 ML FLUSH IV FLUSH PRN (09:31)
[2016-12-09] MEDS: POTASSIUM CHLORIDE 20 MEQ CONTROLLED RELEASE TAB PO SCH ×2 (09:32→21:02)
[2016-12-09] MEDS: PANTOPRAZOLE SOD 20 MG DELAYED RELEASE TAB PO SCH (09:32)
[2016-12-09] MEDS: RIVAROXABAN 20 MG TAB PO SCH (09:34)
[2016-12-09] MEDS: METOPROLOL TARTRATE 50 MG TAB PO SCH ×2 (09:34→21:02)
[2016-12-09] MEDS: VALSARTAN 160 MG TAB PO SCH (12:48)
[2016-12-09] MEDS ORDERED: ATORVASTATIN 10 MG TAB PO SCH (21:00)
[2016-12-09] MEDS: FUROSEMIDE 40 MG/4 ML VIAL IV PUSH SCH (21:01)
[2016-12-09] MEDS: VERAPAMIL HCL 240 MG SUSTAINED RELEASE TAB PO SCH (21:02)
[2016-12-09] MEDS: PRAVASTATIN SOD 10 MG TAB PO SCH (21:02)
[2016-12-10] VITALS (9 sets, daily range): BP systolic 111–153; BP diastolic 56–87; PULSE 78–108; RESP 16–19; TEMP 98–98.1; O2SAT 95–99
--- NOTE | 2016-12-10 05:53 | RADRPT ---
EXAM DATE/TIME: 12/10/2016 05:20 [facility] COMPARISON: CHEST SINGLE AP, December 09, 2016, 5:47. INDICATIONS : Shortness of breath. MEDICAL HISTORY : Congestive heart failure. SURGICAL HISTORY : None. ENCOUNTER: Initial ACUITY: 1 day PAIN SCORE: 0/10 LOCATION: Bilateral chest FINDINGS: The cardiac silhouette is enlarged in transverse diameter. There is prominence of the aortic knob is with calcification characteristic of atherosclerotic vascular disease. There are findings of congesti ve heart failure with interstitial and alveolar opacity bilaterally. Moderate size bilateral pleural effusions are present right greater than left. CONCLUSION: 1. Cardiomegaly and findings of congestive heart failure. The findings are similar to the prior exam. Bashir Odell MD on December 10, 2016 at 5:51 Board Certified Radiologist. This report was verified electronically.
[2016-12-10 07:38] LABS: BICARBONATE 32.5 MEQ/L (21.0-32.0); POTASSIUM 3.4 MEQ/L (3.5-5.1)
[2016-12-10] MEDS: FUROSEMIDE 40 MG/4 ML VIAL IV PUSH SCH ×2 (10:04→17:05)
[2016-12-10] MEDS: POTASSIUM CHLORIDE 20 MEQ CONTROLLED RELEASE TAB PO SCH ×2 (10:05→21:35)
[2016-12-10] MEDS: VALSARTAN 160 MG TAB PO SCH (10:05)
[2016-12-10] MEDS: RIVAROXABAN 20 MG TAB PO SCH (10:05)
[2016-12-10] MEDS: DOCUSATE SODIUM 100 MG CAP PO SCH ×2 (10:05→21:34)
[2016-12-10] MEDS: PANTOPRAZOLE SOD 20 MG DELAYED RELEASE TAB PO SCH (10:06)
[2016-12-10] MEDS: METOPROLOL TARTRATE 50 MG TAB PO SCH ×2 (10:06→21:35)
[2016-12-10] MEDS ORDERED: POTASSIUM CHLORIDE 25 MEQ EFFERVESCENT TAB PO ONE (12:45)
--- NOTE | 2016-12-10 13:24 | HHI.PR ---
Subjective Remarks sitting up in bed on 2 pillows mild SOB daughter here no chest pain irregular rhythm, afib, HR 97 (Ashley Holloway) Objective Objective Results - Vital Signs Date Time Temp Pulse Resp B/P Pulse Ox O2 Delivery O2 Flow Rate FiO2 12/10/16 12:43 98.0 90 19 111/72 98 12/10/16 07:44 96 18 153/87 96 12/10/16 07:40 99 Nasal Cannula 2.00 12/10/16 07:39 108 12/10/16 04:00 98.0 78 18 128/68 98 12/10/16 03:27 94 16 129/84 95 12/09/16 20:37 96.1 104 16 140/95 96 12/09/16 19:45 98 Nasal Cannula 2.00 12/09/16 15:37 97.6 90 14 147/65 98 I/O 12/09/16 12/09/16 12/09/16 12/10/16 12/10/16 12/10/16 07:00 15:00 23:00 07:00 15:00 23:00 Intake Total 120 ml 630 ml 160 ml Output Total 900 ml 300 ml Balance 120 ml -270 ml -140 ml Intake Oral 120 ml 630 ml 160 ml Output Urine Total 900 ml 300 ml # Voids 3 (Ashley Holloway) Result Diagram: 12/08/16 1145 12/10/16 0601 ROS General: Weakness (generalized), Other (10 point ROS done, positives notice 2+ pedal edema, mild shortness of breath, dysrhythmias during the a.m., other systems unremarkable) Cardiac: Edema (2+) Pulmonary: Cough (occ.), SOB (mild) (Ashley Holloway) Physical Exam Physical Exam PHYSICAL EXAMINATION GENERAL: This is a well-developed, pale female who appears to be in no mild distress. She is alert and awake, HEAD: Normocephalic without any lesion or mass noted. Facial features appear symmetric. OROPHARYNGEAL: Oropharynx without erythema or edema. NECK: Supple. No nuchal rigidity or lymphadenopathy. Trachea midline without deviation. CARDIAC: Regular rhythm, regular rate, S1 and S2 are heard. Murmur none LUNGS: diminished to auscultation bilaterally specially in right lower lung rales. No wheeze, no rhonchi. mild use of accessory muscles on inspiration or expiration. ABDOMEN: Soft, nontender, no organomegaly or masses. Bowel sounds are heard in all four quadrants. No rebound. No guarding. EXTREMITIES: 2+ edema lower extremities bilateral. Palpable pulses NEUROLOGICAL: Patient mood and affect appropriate. No focal deficit SKIN:Warm and moist, pale Objective Remarks I'm having no chest pain but a little short of breath (Ashley Holloway) A/P Assessment and Plan Assessment/plan: 1. Acute exacerbation of congestive heart failure. 2. Bilateral pleural effusions. 3. Atrial fibrillation with rapid ventricular rate. 4. Hypertension. 5. History of CVA. 6. Macular degeneration. 7. Legally blind. 8. Hyperlipidemia. PLAN: Vital signs reviewed, heart rate labile and at times greater than 100 with some dysrhythmias last night. Current rate 96 Afebrile Cardiology consult appreciate input, 2-D echo today On IV lasix: increase to 40mg iv bid. Heart-healthy diet. Fluid restriction to 1000ml/day. Telemetry, patient had a BE and 11 beat run of V. tach versus abberation last a.m. Hypertension BP/HR still not at goal: increase metoprolol to 100mg po bid. Continue verapamil/valsartan. Hyperlipidemia Lipids elevated: Start pravastatin 10mg po qhs. Monitor Lipids/LFTs. DVT prophylaxis with Xarelto. GI prophylaxis with proton pump inhibitor. DW with patient/family/RN. Labs reviewed Mild leukocytosis Hypokalemia mild, added extra 20 K milliequivalents today. We'll recheck BMP in the morning (Ashley Holloway) Assessment and Plan PT IS SEEN & EXAMINED d/w PT d/w ashley [place] w above cont current tx 2DEcho is [p] card f/u pt meets Inpatient criteria , she needs optimization of her CHF/better symptom control expected LOS is 3 to 4 days ,possible dc home when stable (Yakelin Vicente MD) Ashley Holloway December 10, 2016 13:24 Yakelin Vicente MD December 10, 2016 17:21
--- NOTE | 2016-12-10 14:11 | PD.CARD.PN ---
Subjective Subjective Remarks Overnight events noted. Episodes of asymptomatic NSVT Good Urine output Objective Medications Current Medications Medications (Trade) Dose Ordered Sig/Crescencio Route Start Time Stop Time Status Last Admin (NS Flush) 2 ml UNSCH PRN IV FLUSH 12/08/16 14:45 12/09/16 09:31 (Tylenol) 650 mg Q4H PRN PO 12/08/16 14:45 (Zofran Inj) 4 mg Q6H PRN IVP 12/08/16 14:45 (Colace) 100 mg Q12HR PO 12/08/16 14:45 12/10/16 10:05 (Ambien) 5 mg HS PRN PO 12/08/16 14:45 (Narcan Inj) 0.4 mg UNSCH PRN IV 12/08/16 14:45 (Atarax) 10 mg Q8H PRN PO 12/08/16 14:45 12/10/16 10:05 (Pill Splitter) 1 ea UNSCH PRN OTHER 12/08/16 21:00 (Xarelto) 20 mg DAILY PO 12/08/16 16:15 12/10/16 10:05 (Isoptin Sr) 240 mg HS PO 12/09/16 21:00 12/09/16 21:02 (Protonix) 20 mg DAILY PO 12/08/16 16:30 12/10/16 10:06 (Lopressor) 100 mg Q12HR PO 12/09/16 21:00 12/10/16 10:06 (KCl) 20 meq BID PO 12/09/16 21:00 12/10/16 10:05 (Diovan) 160 mg DAILY PO 12/09/16 11:00 12/10/16 10:05 (Pravachol) 10 mg HS PO 12/09/16 21:00 12/09/16 21:02 (Lasix Inj) 40 mg BID@ IV PUSH 12/10/16 17:00 Vital Signs / I&O Vital Signs Date Time Temp Pulse Resp B/P Pulse Ox O2 Delivery O2 Flow Rate FiO2 12/10/16 12:43 98.0 90 19 111/72 98 12/10/16 07:44 96 18 153/87 96 12/10/16 07:40 99 Nasal Cannula 2.00 12/10/16 07:39 108 12/10/16 04:00 98.0 78 18 128/68 98 12/10/16 03:27 94 16 129/84 95 12/09/16 20:37 96.1 104 16 140/95 96 12/09/16 19:45 98 Nasal Cannula 2.00 12/09/16 15:37 97.6 90 14 147/65 98 I/O 12/09/16 12/09/16 12/09/16 12/10/16 12/10/16 12/10/16 07:00 15:00 23:00 07:00 15:00 23:00 Intake Total 120 ml 630 ml 270 ml Output Total 900 ml 700 ml Balance 120 ml -270 ml -430 ml Intake Oral 120 ml 630 ml 270 ml Output Urine Total 900 ml 700 ml # Voids 3 Physical Exam GENERAL: Well-nourished, well-developed patient. SKIN: Warm and dry. HEAD: Normocephalic. EYES: No scleral icterus. No injection or drainage. NECK: Supple, trachea midline. No JVD or lymphadenopathy. CARDIOVASCULAR: Irr Irr without murmurs, gallops, or rubs. RESPIRATORY: Breath sounds equal bilaterally. No accessory muscle use. GASTROINTESTINAL: Abdomen soft, non-tender, nondistended. EXTREMITIES: No cyanosis, +edema. Laboratory Laboratory Tests Test 12/10/16 06:01 Sodium Level 137 MEQ/L Potassium Level 3.4 MEQ/L Chloride Level 95 MEQ/L Carbon Dioxide Level 32.5 MEQ/L Anion Gap 10 MEQ/L Blood Urea Nitrogen 17 MG/DL Creatinine 0.82 MG/DL Estimat Glomerular Filtration 66 ML/MIN Rate Random Glucose 67 MG/DL Calcium Level 8.3 MG/DL Imaging Last Impressions Chest X-Ray 12/10/16 0600 Signed Impressions: Service Date/Time: Saturday, December 10, 2016 05:20 - CONCLUSION: 1. Cardiomegaly and findings of congestive heart failure. The findings are similar to the prior exam. Bashir Odell MD Assessment and Plan Problem List: (1) Volume overload Assessment and Plan: Continue medical management (2) Congestive heart failure (3) Hypertension (4) Atrial fibrillation with RVR Kwadwo Keller MD December 10, 2016 14:11
--- NOTE | 2016-12-10 20:02 | EC ---
Study Study Date:12/10/2016 STUDY CONCLUSIONS SUMMARY - Left ventricle: The cavity size was normal. Wall thickness was increased in a pattern of moderate LVH. Systolic function was normal. The estimated ejection fraction was 65%. Wall motion was normal; there were no regional wall motion abnormalities. - Aortic valve: Calcified annulus. Trileaflet; mildly thickened leaflets. - Mitral valve: Moderately calcified annulus. Mildly thickened leaflets, . Moderate regurgitation. - Left atrium: The atrium was mildly dilated. - Tricuspid valve: Moderate-severe regurgitation. - Pulmonary arteries: Systolic pressure was mildly increased. PA peak pressure: 42mm Hg (S). If LV function is below 40, please consider prescribing an ACEI or ARB or document rationale for non-use. PROCEDURE DATA STUDY STATUS: Elective. Procedure: Transthoracic echocardiography. Image quality was good. Scanning was performed from the parasternal, apical, and subcostal acoustic windows. Study completion: The patient tolerated the procedure well. Transthoracic echocardiography. M-mode, complete 2D, complete spectral Doppler, and color Doppler. Patient status: Inpatient. CARDIAC ANATOMY LEFT VENTRICLE: The cavity size was normal. Wall thickness was increased in a pattern of moderate LVH. Systolic function was normal. The estimated ejection fraction was 65%. Wall motion was normal; there were no regional wall motion abnormalities. AORTIC VALVE: Calcified annulus. Trileaflet; mildly thickened leaflets. Doppler: Transvalvular velocity was within the normal range. There was no stenosis. No regurgitation. AORTA: Aortic root: The aortic root was normal in size. MITRAL VALVE: Moderately calcified annulus. Mildly thickened leaflets, . Doppler: Transvalvular velocity was within the normal range. There was no evidence for stenosis. Moderate regurgitation. LEFT ATRIUM: The atrium was mildly dilated. RIGHT VENTRICLE: The cavity size was normal. Wall thickness was normal. PULMONIC VALVE: Doppler: Transvalvular velocity was within the normal range. There was no evidence for stenosis. No regurgitation. TRICUSPID VALVE: Structurally normal valve. Doppler: Transvalvular velocity was within the normal range. Moderate-severe regurgitation. PULMONARY ARTERY: The main pulmonary artery was normal-sized. Systolic pressure was mildly increased. RIGHT ATRIUM: The atrium was normal in size. PERICARDIUM: There was no pericardial effusion. SYSTEMIC VEINS: Inferior vena cava: The vessel was normal in size. BASIC MEASUREMENTS ADULT Normal Left ventricle LV internal dimension, ED, chordal level, *29.3 mm 43-52 PLAX LV internal dimension, ES, chordal level, *20 mm 23-38 PLAX Fractional shortening, chordal level, PLAX 32 % >29 LV posterior wall thickness, ED 10.1 mm IVS/LVPW ratio, ED *1.98 <1.3 Ventricular septum Septal thickness, ED 20 mm Aortic valve Leaflet separation 19 mm 15-26 Right ventricle RV internal dimension, ED, PLAX 20.3 mm 19-38 BASIC MEASUREMENTS ADULT Normal Aortic valve Leaflet separation 19 mm 15-26 Aorta Root diameter, ED 32 mm 20-37 Left atrium Anterior-posterior dimension, ES *46 mm 19-40 LA/aortic root ratio 1.44 DOPPLER MEASUREMENTS ADULT Normal Main pulmonary artery Pressure, S *42 mm Hg =30 Tricuspid valve Regurgitant peak velocity 283 cm/s Peak RV-RA gradient, S 32 mm Hg Systemic veins Estimated CVP 10 mm Hg Right ventricle RV pressure, S *42 mm Hg <30 LEGEND: Mean values are shown as u=mean value. Asterisk (*) prieto values outside specified normal range. Prepared and signed by Jamey Ontiveros [id number]
[2016-12-10] MEDS: VERAPAMIL HCL 240 MG SUSTAINED RELEASE TAB PO SCH (21:34)
[2016-12-10] MEDS: PRAVASTATIN SOD 10 MG TAB PO SCH (21:35)
[2016-12-11] VITALS (14 sets, daily range): BP systolic 81–126; BP diastolic 51–93; PULSE 52–89; RESP 16–20; TEMP 96.1–98.5; O2SAT 92–97
[2016-12-11 05:29] LABS: BICARBONATE 31.7 MEQ/L (21.0-32.0); POTASSIUM 3.9 MEQ/L (3.5-5.1)
--- NOTE | 2016-12-11 08:04 | HHI.PR ---
Subjective Remarks Able to lie flatter in bed with one pillow at 30 No SOB at rest no chest pain irregular rhythm, afib, HR controlled less than 100 (Ashley Holloway) Objective Objective Results - Vital Signs Date Time Temp Pulse Resp B/P Pulse Ox O2 Delivery O2 Flow Rate FiO2 12/11/16 04:19 98.0 85 18 104/69 95 12/11/16 00:58 97.4 78 18 126/89 96 12/10/16 20:03 96 12/10/16 19:11 98.1 89 18 118/62 97 12/10/16 15:56 98.0 79 18 117/56 95 12/10/16 12:43 98.0 90 19 111/72 98 I/O 12/10/16 12/10/16 12/10/16 12/11/16 12/11/16 12/11/16 07:00 15:00 23:00 07:00 15:00 23:00 Intake Total 270 ml 200 ml Output Total 700 ml 100 ml 100 ml Balance -430 ml 100 ml -100 ml Intake Oral 270 ml 200 ml Output Urine Total 700 ml 100 ml 100 ml # Bowel Movements 1 (Ashley Holloway) Result Diagram: 12/08/16 1145 12/11/16 0443 ROS General: Weakness (generalized), Other (10 point ROS done positives noted in system assessment otherwise unremarkable) Cardiac: Edema (1+ lower extremities, improved) Pulmonary: Cough (K she will), SOB (exertional) (Ashley Holloway) Physical Exam Physical Exam PHYSICAL EXAMINATION GENERAL: This is a elderly female who appears to be in no acute distress at rest. She awakens easily to verbal stimuli HEAD: Normocephalic without any lesion or mass noted. Facial features appear symmetric. OROPHARYNGEAL: Oropharynx without erythema or edema. NECK: Supple. No nuchal rigidity or lymphadenopathy. Trachea midline without deviation. CARDIAC: Regular rhythm, irregular rate, S1 and S2 are heard. Murmur soft LUNGS: Clearer to auscultation bilaterally. No wheeze, no rhonchi, breath sounds in bases audible No use of accessory muscles on inspiration or expiration. ABDOMEN: Soft, nontender, no organomegaly or masses. Bowel sounds are heard in all four quadrants. No rebound. No guarding. EXTREMITIES: Trace to 1+ edema lower extremities. Pulses palpable NEUROLOGICAL: Patient mood and affect appropriate. No focal deficit SKIN:Warm and moist Objective Remarks I rested well last night (Ashley Holloway) A/P Assessment and Plan Assessment/plan: 1. Acute exacerbation of congestive heart failure. 2. Bilateral pleural effusions. 3. Atrial fibrillation with rapid ventricular rate. 4. Hypertension. 5. History of CVA. 6. Macular degeneration. 7. Legally blind. 8. Hyperlipidemia. PLAN: Vital signs reviewed, heart rate controlled under 100 Afebrile Physical therapy eval, contact guard assist with mobility, balance is poor. Instructed not to be up by herself Cardiology consult appreciate input, 2-D echo , EF 65%, tricuspid regurg, valvular abnormalities noted On IV lasix: increase to 40mg iv bid. Heart-healthy diet. Fluid restriction to 1000ml/day. Telemetry, CHF much improved with treatment regimen and diuresis Hypertension BP/HR still not at goal: increase metoprolol to 100mg po bid. Continue verapamil/valsartan. Hyperlipidemia Lipids elevated: Start pravastatin 10mg po qhs. Monitor Lipids/LFTs. DVT prophylaxis with Xarelto. GI prophylaxis with proton pump inhibitor. DW with patient/family/RN. Labs reviewed B UN 20, Hypokalemia resolved, 3.9 today Discussed With: Nurse, Family (patient), Other (Dr. Vicente, patient seen on his behalf) (Ashley Holloway) Assessment and Plan pt is seen & Examined d/w PT d/w Ashley feels much better medically stable d/c home today w [facility] if ok w card see Orders see [facility] f/u pcp & card (Yakelin Vicente MD) Ashley Holloway December 11, 2016 08:04 Yakelin Vicente MD December 11, 2016 09:28
[2016-12-11] MEDS: VALSARTAN 160 MG TAB PO SCH (08:24)
[2016-12-11] MEDS: DOCUSATE SODIUM 100 MG CAP PO SCH ×2 (08:24→20:42)
[2016-12-11] MEDS: METOPROLOL TARTRATE 50 MG TAB PO SCH (08:24)
[2016-12-11] MEDS: POTASSIUM CHLORIDE 20 MEQ CONTROLLED RELEASE TAB PO SCH ×2 (08:24→20:42)
[2016-12-11] MEDS: FUROSEMIDE 40 MG/4 ML VIAL IV PUSH SCH (08:24)
[2016-12-11] MEDS: RIVAROXABAN 20 MG TAB PO SCH (08:25)
[2016-12-11] MEDS: PANTOPRAZOLE SOD 20 MG DELAYED RELEASE TAB PO SCH (08:25)
[2016-12-11] MEDS: SODIUM CHLORIDE 0.9% FLUSH 10 ML FLUSH IV FLUSH PRN ×2 (08:25→12:35)
[2016-12-11] MEDS ORDERED: DIOV160T6 PO (09:32)
[2016-12-11] MEDS ORDERED: FURO1TAB60 PO (09:32)
[2016-12-11] MEDS ORDERED: METO-309 PO (09:32)
[2016-12-11] MEDS ORDERED: POTA20TA5 PO (09:32)
--- NOTE | 2016-12-11 09:33 | HHI.FF ---
Face to Face Verification Diagnosis: (1) congestive heart failure, new onset (2) Atrial fibrillation with RVR (3) hypertension (4) Volume overload (5) anxiety (6) blindness OD, diminished vision with macular degeneration OS Physical Therapy Order: Evaluate and Treat, Improve ambulation, Strength and gait training Home Health Nursing Order: Medical education Signs/symptoms of disease process CHF education Nursing assessment with vital signs I have seen patient Lamin Hood on 12/11/16. My clinical findings support the need for the requested home health care services because: Ltd mobility - disease progression Patient has SOB Deconditioned w/ increased weakness High risk of falls I certify that my clinical findings support that this patient is homebound because: Unsafe to leave home unassisted Unable to use public transportation Yakelin Vicente MD December 11, 2016 09:33
[2016-12-11] MEDS ORDERED: SODIUM CHLOR 0.9% 250 ML INJ 250 ML IV ONE (12:00)
[2016-12-11] MEDS ORDERED: ATROPINE SULFATE 1 MG/10 ML SYRINGE ONE (12:03)
[2016-12-11] MEDS ORDERED: RESP: ALBUTEROL 1.25 MG/3 ML NEB (PRN) ONE (12:04)
[2016-12-11] MEDS ORDERED: GLUCAGON 1 MG/ML VIAL IV PUSH STA (12:07)
[2016-12-11] MEDS ORDERED: CALCIUM CHLORIDE 10% SOLN 1 GRAM/10 ML SYR IV PUSH ONE (12:15)
--- NOTE | 2016-12-11 14:36 | PD.CARD.PN ---
Subjective Subjective Remarks AM events noted Confusion Bradycardia and Hypotension medication induced Transferred to ICU Objective Medications Current Medications Medications (Trade) Dose Ordered Sig/Crescencio Route Start Time Stop Time Status Last Admin (NS Flush) 2 ml UNSCH PRN IV FLUSH 12/08/16 14:45 12/11/16 12:35 (Tylenol) 650 mg Q4H PRN PO 12/08/16 14:45 (Zofran Inj) 4 mg Q6H PRN IVP 12/08/16 14:45 (Colace) 100 mg Q12HR PO 12/08/16 14:45 12/11/16 08:24 (Ambien) 5 mg HS PRN PO 12/08/16 14:45 (Narcan Inj) 0.4 mg UNSCH PRN IV 12/08/16 14:45 (Atarax) 10 mg Q8H PRN PO 12/08/16 14:45 12/10/16 10:05 (Pill Splitter) 1 ea UNSCH PRN OTHER 12/08/16 21:00 (Xarelto) 20 mg DAILY PO 12/08/16 16:15 12/11/16 08:25 (Isoptin Sr) 240 mg HS PO 12/09/16 21:00 12/10/16 21:34 (Protonix) 20 mg DAILY PO 12/08/16 16:30 12/11/16 08:25 (Lopressor) 100 mg Q12HR PO 12/09/16 21:00 12/11/16 08:24 (KCl) 20 meq BID PO 12/09/16 21:00 12/11/16 08:24 (Diovan) 160 mg DAILY PO 12/09/16 11:00 12/11/16 08:24 (Pravachol) 10 mg HS PO 12/09/16 21:00 12/10/16 21:35 Vital Signs / I&O Vital Signs Date Time Temp Pulse Resp B/P Pulse Ox O2 Delivery O2 Flow Rate FiO2 12/11/16 12:16 95 Nasal Cannula 3.00 12/11/16 12:00 96.4 73 18 115/60 92 12/11/16 10:31 56 12/11/16 10:27 81/51 12/11/16 08:00 96.1 89 16 107/69 96 12/11/16 08:00 79 12/11/16 07:38 96 Nasal Cannula 2.00 12/11/16 04:19 98.0 85 18 104/69 95 12/11/16 00:58 97.4 78 18 126/89 96 12/10/16 20:03 96 12/10/16 19:11 98.1 89 18 118/62 97 12/10/16 15:56 98.0 79 18 117/56 95 I/O 12/10/16 12/10/16 12/10/16 12/11/16 12/11/16 12/11/16 07:00 15:00 23:00 07:00 15:00 23:00 Intake Total 270 ml 200 ml 200 ml Output Total 700 ml 100 ml 100 ml 325 ml Balance -430 ml 100 ml -100 ml -125 ml Intake Oral 270 ml 200 ml 200 ml Output Urine Total 700 ml 100 ml 100 ml 325 ml # Voids 1 # Bowel Movements 1 Physical Exam GENERAL: Well-nourished, well-developed patient. SKIN: Warm and dry. HEAD: Normocephalic. EYES: No scleral icterus. No injection or drainage. NECK: Supple, trachea midline. No JVD or lymphadenopathy. CARDIOVASCULAR: Irr Irr without murmurs, gallops, or rubs. RESPIRATORY: Breath sounds equal bilaterally. No accessory muscle use. GASTROINTESTINAL: Abdomen soft, non-tender, nondistended. EXTREMITIES: No cyanosis, +edema. Laboratory Laboratory Tests Test 12/11/16 04:43 Sodium Level 136 MEQ/L Potassium Level 3.9 MEQ/L Chloride Level 99 MEQ/L Carbon Dioxide Level 31.7 MEQ/L Anion Gap 5 MEQ/L Blood Urea Nitrogen 20 MG/DL Creatinine 0.75 MG/DL Estimat Glomerular Filtration 74 ML/MIN Rate Random Glucose 76 MG/DL Calcium Level 8.1 MG/DL Imaging Last Impressions Chest X-Ray 12/10/16 0600 Signed Impressions: Service Date/Time: Saturday, December 10, 2016 05:20 - CONCLUSION: 1. Cardiomegaly and findings of congestive heart failure. The findings are similar to the prior exam. Bashir Odell MD Assessment and Plan Problem List: (1) Volume overload Assessment and Plan: Medication induced bradycardia and hypotension Hold AV blocking agents Wean Dopamine Telemetry monitoring Agree with ICU admission (2) Congestive heart failure (3) Hypertension (4) Atrial fibrillation with RVR Walter-Driss,Kwadwo R MD December 11, 2016 14:36
--- NOTE | 2016-12-11 20:03 | PD.CONS ---
[facility] Service Critical Care [facility] Reason for Consult Bradycardia, hypotension Primary Care Physician Non-Staff History of Present Illness 86-year-old female with a history of CHF presented with her daughter for evaluation of leg swelling and some mild shortness of breath. Her symptoms had been gradually worsening over the past few days. The patient appears to be very limited mobility. Patient was here in August with similar circumstances and was admitted. Symptoms had been gradually worsening and onset Over the past few days. Her chest x-ray revealed cardiomegaly and she was diagnosed to be in CHF. [facility] and evaluated by Dr. Walter from cardiology. She was diuresed with Lasix. Verapamil home dose was continued. Her Toprol dose had been increased from 50 mg-75mg Q12 to 100mg [id number]. Rapid response was called today on 12/11 for bradycardia with heart rate down to the 30s and systolic blood pressure in the 60s. Patient was brought to the ICU by rapid response team. I evaluated the patient immediately on arrival. She denied any chest pain or shortness of breath at the time and was on nasal cannula. She knew she was in the hospital and was following commands. She just felt very lightheaded at the time. Subsequent day she developed some nausea. She was being administered a fluid bolus which was held on arrival. Her bradycardia and subsequent hypotension were felt to be related to medications as a beta eric dose had just been increased in the setting of being on verapamil. She was started on dopamine for her bradycardia and hypotension at 20 mics per KG per minute with which her heart rate came up to the 70s and was also given 1 g of calcium chloride and 5 mg of IV glucagonoma she had received her metoprolol 100 mg this morning as well as verapamil last night. Following this a heart rate came up to the 90s and the dopamine was gradually titrated down. She converted to sinus rhythm transiently however subsequently reverted back to atrial fibrillation with heart rate in the 130s while on dopamine at 10 mics per KG per minute which was then titrated off. History was obtained by reviewing records and discussion with nursing staff. PFSH Past Medical History Hx Anticoagulant Therapy: Yes (xarelto) Heart Rhythm Problems: Yes Cancer: No Cardiovascular Problems: Yes (afib/chf) Congestive Heart Failure: Yes Cerebrovascular Accident: Yes Endocrine: No Genitourinary: No Hypertension: Yes Immune Disorder: No Musculoskeletal: No Neurologic: Yes Psychiatric: No Reproductive: No Respiratory: No ?: Not Past Surgical History Appendectomy: Yes Body Medical Devices: KAMAR IN STOMACH Social History Alcohol Use: No Tobacco Use: No Substance Use: No Allergies-Medications (Allergen,Severity, Reaction): Coded Allergies: Morphine (Verified Allergy, Severe, Hives, 09/06/16) Reported Meds & Prescriptions Reported Meds & Active Scripts Active Lopressor (Metoprolol Tartrate) 50 Mg Tab 75 Mg PO Q12HR Prednisone 20 Mg Tab 20 Mg PO DAILY Reported Verapamil ER 24 HR (Verapamil HCl) 240 Mg Tab 240 Mg PO HS Xarelto (Rivaroxaban) 20 Mg Tab 20 Mg PO DAILY Potassium Chloride ER (Potassium Chloride) 10 Meq Cap 10 Meq PO DAILY Lasix (Furosemide) 20 Mg Tab 20 Mg PO DAILY Review of Systems Except as stated in HPI: all other systems reviewed are Neg Physical Exam Vital Signs Vital Signs Date Time Temp Pulse Resp B/P Pulse Ox O2 Delivery O2 Flow Rate FiO2 12/11/16 18:00 52 12/11/16 16:00 97.0 75 16 104/93 93 12/11/16 16:00 71 12/11/16 14:00 73 12/11/16 12:16 95 Nasal Cannula 3.00 12/11/16 12:00 58 12/11/16 12:00 96.4 73 18 115/60 92 12/11/16 10:31 56 12/11/16 10:27 81/51 12/11/16 08:00 96.1 89 16 107/69 96 12/11/16 08:00 79 12/11/16 07:38 96 Nasal Cannula 2.00 12/11/16 04:19 98.0 85 18 104/69 95 12/11/16 00:58 97.4 78 18 126/89 96 12/10/16 20:03 96 Physical Exam GENERAL: Elderly frail female laying in bed feeling lightheaded at the time of my evaluation however appeared to be breathing comfortably. SKIN: Focused skin assessment warm/dry. HEAD: Atraumatic. Normocephalic. EYES: Pupils equal and round. No scleral icterus. No injection or drainage. ENT: No nasal bleeding or discharge. Mucous membranes pink and moist. NECK: Trachea midline. No JVD. CARDIOVASCULAR: Regular rate and rhythm. No murmur appreciated. RESPIRATORY: No accessory muscle use. Clear to auscultation. Breath sounds equal bilaterally. GASTROINTESTINAL: Abdomen soft, non-tender, nondistended. Hepatic and splenic margins not palpable. Plus bilateral equal pulses in all 4 extremities. MUSCULOSKELETAL: No obvious deformities. No clubbing. No cyanosis. Trace edema NEUROLOGICAL: Awake and alert. No obvious cranial nerve deficits. Motor grossly within normal limits. Normal speech. PSYCHIATRIC: Appropriate mood and affect; insight and judgment normal. Laboratory Laboratory Tests Test 12/11/16 12/11/16 04:43 12:09 Sodium Level 136 Potassium Level 3.9 Chloride Level 99 Carbon Dioxide Level 31.7 Anion Gap 5 Blood Urea Nitrogen 20 Creatinine 0.75 Estimat Glomerular Filtration 74 Rate Random Glucose 76 Calcium Level 8.1 Nasal Screen MRSA (PCR) MRSA NOT DETECTED Result Diagram: 12/08/16 1145 12/11/16 0443 Imaging Last Impressions Chest X-Ray 12/10/16 0600 Signed Impressions: Service Date/Time: Saturday, December 10, 2016 05:20 - CONCLUSION: 1. Cardiomegaly and findings of congestive heart failure. The findings are similar to the prior exam. Bashir Odell MD Assessment and Plan Assessment and Plan Bradycardia/hypotension secondary to medications: Beta eric/thousand Gen. eric Atrial fibrillation CHF Plan: Neuro: Follow neuro status. Cardiovascular: Beta eric and verapamil. Given Glucagon, atropine and initiated dopamine drip initially on arrival to the ICU which is now been titrated off. 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 Plan to resume beta eric home dose eventually. Will defer decision regarding resuming verapamil to Dr. Walter. On Lasix for diuresis. Xarelto for anticoagulation. Pulmonary: Supplemental O2 as needed. GI/liver: By mouth diet as tolerated Renal/: Strict intake output, monitor and replete elect lites, follow BUN/ creatinine. Diuresis with Lasix if BP permits. Heme: Follow CBC Endocrine: Watch for hyperglycemia Prophylaxis: SCDs/Xarelto for anticoagulation. D/W Dr. Walter Time spent on critical care excluding procedures 50 minutes Maurilio Madsen MD December 11, 2016 20:03
[2016-12-11] MEDS: PRAVASTATIN SOD 10 MG TAB PO SCH (20:42)
[2016-12-12] VITALS (25 sets, daily range): BP systolic 108–150; BP diastolic 56–89; PULSE 70–101; RESP 16–20; TEMP 97.7–98.5; O2SAT 95–99
[2016-12-12 04:20] LABS: AUTOMATED NEUTROPHIL # 10.4 TH/MM3 (1.8-7.7); BASOPHIL # 0.1 TH/MM3 (0-0.2); BASOPHIL % 0.4 % (0.0-2.0); EOSINOPHIL # 0.1 TH/MM3 (0-0.4); EOSINOPHIL % 0.7 % (0.0-4.0); HEMATOCRIT 40.3 % (35.0-46.0); HEMO FLAGS DIFF FINAL; LYMPH % 17.5 % (9.0-44.0); LYMPHOCYTE # 2.4 TH/MM3 (1.0-4.8); MEAN CELL VOLUME 83.3 FL (80.0-100.0); MEAN CORPUSCULAR HEMOGLOBIN 27.9 PG (27.0-34.0); MEAN CORPUSCULAR HGB CONC 33.5 % (32.0-36.0); MONO % 5.6 % (0.0-8.0); NEUT % 75.8 % (16.0-70.0); PLATELET COUNT 179 TH/MM3 (150-450); RED BLOOD COUNT 4.83 MIL/MM3 (4.00-5.30); RED CELL DISTRIBUTION WIDTH 17.3 % (11.6-17.2); WHITE BLOOD COUNT 13.8 TH/MM3 (4.0-11.0)
[2016-12-12 04:43] LABS: ALKALINE PHOSPHATASE 98 U/L (45-117); ALT (GPT) 25 U/L (10-53); ANION GAP 8 MEQ/L (5-15); AST (GOT) 26 U/L (15-37); BLOOD UREA NITROGEN 23 MG/DL (7-18); CHLORIDE 98 MEQ/L (98-107); GLOMERULAR FILTRATION RATE 65 ML/MIN (>89); POTASSIUM 4.3 MEQ/L (3.5-5.1); SODIUM (NA) 137 MEQ/L (136-145); TOTAL BILIRUBIN ADULT 2.4 MG/DL (0.2-1.0)
[2016-12-12] MEDS: PANTOPRAZOLE SOD 20 MG DELAYED RELEASE TAB PO SCH (08:20)
[2016-12-12] MEDS: POTASSIUM CHLORIDE 20 MEQ CONTROLLED RELEASE TAB PO SCH ×2 (08:20→21:18)
[2016-12-12] MEDS: DOCUSATE SODIUM 100 MG CAP PO SCH ×2 (08:20→21:00)
[2016-12-12] MEDS: RIVAROXABAN 20 MG TAB PO SCH (08:26)
[2016-12-12] MEDS: VALSARTAN 160 MG TAB PO SCH (09:00)
--- NOTE | 2016-12-12 09:42 | PD.CARD.PN ---
Subjective Subjective Remarks no overnight events paroxysmal afib rate control on OAC No complaints Objective Medications Current Medications Medications (Trade) Dose Ordered Sig/Crescencio Route Start Time Stop Time Status Last Admin (NS Flush) 2 ml UNSCH PRN IV FLUSH 12/08/16 14:45 12/11/16 12:35 (Tylenol) 650 mg Q4H PRN PO 12/08/16 14:45 (Zofran Inj) 4 mg Q6H PRN IVP 12/08/16 14:45 (Colace) 100 mg Q12HR PO 12/08/16 14:45 12/12/16 08:20 (Ambien) 5 mg HS PRN PO 12/08/16 14:45 (Narcan Inj) 0.4 mg UNSCH PRN IV 12/08/16 14:45 (Atarax) 10 mg Q8H PRN PO 12/08/16 14:45 12/10/16 10:05 (Pill Splitter) 1 ea UNSCH PRN OTHER 12/08/16 21:00 (Xarelto) 20 mg DAILY PO 12/08/16 16:15 12/12/16 08:26 (Isoptin Sr) 240 mg HS PO 12/09/16 21:00 Hold 12/10/16 21:34 (Protonix) 20 mg DAILY PO 12/08/16 16:30 12/12/16 08:20 (Lopressor) 100 mg Q12HR PO 12/09/16 21:00 Hold 12/11/16 08:24 (KCl) 20 meq BID PO 12/09/16 21:00 12/12/16 08:20 (Diovan) 160 mg DAILY PO 12/09/16 11:00 12/11/16 08:24 (Pravachol) 10 mg HS PO 12/09/16 21:00 12/11/16 20:42 Vital Signs / I&O Vital Signs Date Time Temp Pulse Resp B/P Pulse Ox O2 Delivery O2 Flow Rate FiO2 12/12/16 08:08 95 Nasal Cannula 2.00 12/12/16 06:00 71 12/12/16 04:00 70 12/12/16 04:00 98.3 70 16 122/59 98 12/12/16 02:00 75 12/12/16 00:00 77 12/12/16 00:00 98.5 77 20 143/70 96 12/11/16 22:00 79 12/11/16 20:20 95 Nasal Cannula 3.00 12/11/16 20:00 73 12/11/16 20:00 98.5 73 20 97 12/11/16 18:00 52 12/11/16 16:00 97.0 75 16 104/93 93 12/11/16 16:00 71 12/11/16 14:00 73 12/11/16 12:16 95 Nasal Cannula 3.00 12/11/16 12:00 58 12/11/16 12:00 96.4 73 18 115/60 92 12/11/16 10:31 56 12/11/16 10:27 81/51 I/O 12/11/16 12/11/16 12/11/16 12/12/16 12/12/16 12/12/16 07:00 15:00 23:00 07:00 15:00 23:00 Intake Total 440 ml 50 ml 0 ml Output Total 100 ml 725 ml Balance -100 ml -285 ml 50 ml 0 ml Intake Oral 440 ml 0 ml Oral Supplement 50 ml IV Total 0 ml Output Urine Total 100 ml 725 ml # Voids 2 1 1 # Bowel Movements 0 0 Physical Exam GENERAL: Well-nourished, well-developed patient. SKIN: Warm and dry. HEAD: Normocephalic. EYES: No scleral icterus. No injection or drainage. NECK: Supple, trachea midline. No JVD or lymphadenopathy. CARDIOVASCULAR: Irr Irr without murmurs, gallops, or rubs. RESPIRATORY: Breath sounds equal bilaterally. No accessory muscle use. GASTROINTESTINAL: Abdomen soft, non-tender, nondistended. EXTREMITIES: No cyanosis, +edema. Laboratory Laboratory Tests Test 12/11/16 12/12/16 12:09 03:35 Nasal Screen MRSA (PCR) MRSA NOT DETECTED White Blood Count 13.8 TH/MM3 Red Blood Count 4.83 MIL/MM3 Hemoglobin 13.5 GM/DL Hematocrit 40.3 % Mean Corpuscular Volume 83.3 FL Mean Corpuscular Hemoglobin 27.9 PG Mean Corpuscular Hemoglobin 33.5 % Concent Red Cell Distribution Width 17.3 % Platelet Count 179 TH/MM3 Mean Platelet Volume 9.2 FL Neutrophils (%) (Auto) 75.8 % Lymphocytes (%) (Auto) 17.5 % Monocytes (%) (Auto) 5.6 % Eosinophils (%) (Auto) 0.7 % Basophils (%) (Auto) 0.4 % Neutrophils # (Auto) 10.4 TH/MM3 Lymphocytes # (Auto) 2.4 TH/MM3 Monocytes # (Auto) 0.8 TH/MM3 Eosinophils # (Auto) 0.1 TH/MM3 Basophils # (Auto) 0.1 TH/MM3 CBC Comment DIFF FINAL Differential Comment Sodium Level 137 MEQ/L Potassium Level 4.3 MEQ/L Chloride Level 98 MEQ/L Carbon Dioxide Level 31.0 MEQ/L Anion Gap 8 MEQ/L Blood Urea Nitrogen 23 MG/DL Creatinine 0.84 MG/DL Estimat Glomerular Filtration 65 ML/MIN Rate Random Glucose 79 MG/DL Calcium Level 8.9 MG/DL Total Bilirubin 2.4 MG/DL Aspartate Amino Transf 26 U/L (AST/SGOT) Alanine Aminotransferase 25 U/L (ALT/SGPT) Alkaline Phosphatase 98 U/L Total Protein 5.0 GM/DL Albumin 2.4 GM/DL Assessment and Plan Problem List: (1) Atrial fibrillation with RVR Assessment and Plan: Start Lopressor 12.5mg PO BID Cont OAC D/C verapamil Hold other BP meds OK to tx to [facility] Encourage ambulation (2) Volume overload (3) Congestive heart failure (4) Hypertension Kwadwo Keller MD December 12, 2016 09:42
--- NOTE | 2016-12-12 09:56 | EKG ---
Date Performed: 12/11/2016 Time Performed: 11:40:44 PTAGE: 86 years EKG: PROBABLE ATRIAL FIBRILLATION WITH SLOW VENTRICULAR RESPONSE POSSIBLE INFERIOR MYOCARDIAL IN FARCTION ABNORMAL RHYTHM ECG INTERPRETATION BASED ON A DEFAULT AGE OF 40 YEARS PREVIOUS TRACING : 12/08/2016 11.39 DOCTOR: Bob Abraham Interpretating Date/Time 12/12/2016 09:55:30
--- NOTE | 2016-12-12 11:31 | HHI.PR ---
Subjective History of Present Illness Patient is resting comfortably in bed Feels better Blood pressure has improved Heart rate has improved/low-dose beta eric was resumed by cathode builder Little tired Denies chest pain Breathing is okay No cough or sputum production No fever or chills No nausea vomiting Appetite okay Offers no other complaints Daughter is at bedside Vitals/Results Intake & Output 12/11/16 12/11/16 12/12/16 15:00 23:00 07:00 Intake Total 440 ml 50 ml 0 ml Output Total 725 ml Balance -285 ml 50 ml 0 ml Intake Oral 440 ml 0 ml Oral Supplement 50 ml IV Total 0 ml Output Urine Total 725 ml # Voids 2 1 1 # Bowel Movements 0 0 Vital Signs Vital Signs Date Time Temp Pulse Resp B/P Pulse Ox O2 Delivery O2 Flow Rate FiO2 12/12/16 10:00 71 12/12/16 08:08 95 Nasal Cannula 2.00 12/12/16 08:00 71 12/12/16 08:00 98.1 74 20 120/58 96 12/12/16 06:00 71 12/12/16 04:00 70 12/12/16 04:00 98.3 70 16 122/59 98 12/12/16 02:00 75 12/12/16 00:00 77 12/12/16 00:00 98.5 77 20 143/70 96 12/11/16 22:00 79 12/11/16 20:20 95 Nasal Cannula 3.00 12/11/16 20:00 73 12/11/16 20:00 98.5 73 20 97 12/11/16 18:00 52 12/11/16 16:00 97.0 75 16 104/93 93 12/11/16 16:00 71 12/11/16 14:00 73 12/11/16 12:16 95 Nasal Cannula 3.00 12/11/16 12:00 58 12/11/16 12:00 96.4 73 18 115/60 92 CBC/BMP: 12/12/16 0335 12/12/16 0335 Lab Results Laboratory Tests Test 12/11/16 12/12/16 12:09 03:35 Nasal Screen MRSA (PCR) MRSA NOT DETECTED White Blood Count 13.8 TH/MM3 Red Blood Count 4.83 MIL/MM3 Hemoglobin 13.5 GM/DL Hematocrit 40.3 % Mean Corpuscular Volume 83.3 FL Mean Corpuscular Hemoglobin 27.9 PG Mean Corpuscular Hemoglobin 33.5 % Concent Red Cell Distribution Width 17.3 % Platelet Count 179 TH/MM3 Mean Platelet Volume 9.2 FL Neutrophils (%) (Auto) 75.8 % Lymphocytes (%) (Auto) 17.5 % Monocytes (%) (Auto) 5.6 % Eosinophils (%) (Auto) 0.7 % Basophils (%) (Auto) 0.4 % Neutrophils # (Auto) 10.4 TH/MM3 Lymphocytes # (Auto) 2.4 TH/MM3 Monocytes # (Auto) 0.8 TH/MM3 Eosinophils # (Auto) 0.1 TH/MM3 Basophils # (Auto) 0.1 TH/MM3 CBC Comment DIFF FINAL Differential Comment Sodium Level 137 MEQ/L Potassium Level 4.3 MEQ/L Chloride Level 98 MEQ/L Carbon Dioxide Level 31.0 MEQ/L Anion Gap 8 MEQ/L Blood Urea Nitrogen 23 MG/DL Creatinine 0.84 MG/DL Estimat Glomerular Filtration 65 ML/MIN Rate Random Glucose 79 MG/DL Calcium Level 8.9 MG/DL Total Bilirubin 2.4 MG/DL Aspartate Amino Transf 26 U/L (AST/SGOT) Alanine Aminotransferase 25 U/L (ALT/SGPT) Alkaline Phosphatase 98 U/L Total Protein 5.0 GM/DL Albumin 2.4 GM/DL Physical Exam General General Appearance: No Acute Distress, Comfortable Appearance Remarks Elderly female Eyes Eye Exam: Pupils Equal, Sclera White Ears & Nose Ears & Nose Exam: Nasal Mucosa [place] Throat Throat Exam: Oral Mucosa [place] & Moist Neck Neck Exam: Neck Supple, Trachea Midline Pulmonary Resp Exam: Clear Bilaterally, Breath Sounds Equal, No Distress Cardiology CV Exam: Irregular, Arrhythmia CV Remarks .No murmur or gallops. Mild bilateral ankle edema pitting type Gastrointestinal/Abdomen GI Exam: Soft, Non-Tender, Bowel Sounds Present Integumentary Skin Exam: Warm, Dry Extremeties Extremities Exam: Pitting Edema, Dependent Edema Neurologic Neuro Exam: Alert, Awake, Oriented, Speech Clear, Moving All Extremities Psychiatric Psych Exam: Appropriate Responses VTE Prophylaxis VTE Remarks Xarelto Assessment/Plan Assessment/Plan Assessment/plan: 1. s/p Acute diastolic CHF exacerbation .. 2. Bilateral pleural effusions. 3. ch Atrial fibrillation s/p rapid ventricular rate. 4. s/p symptomatic brdaycardia/hypotension felt to be d/t CCB/BB combination , ?? tachy alice syndrome 5. History of CVA. 6. Macular degeneration. Legally blind. 7. Hypertension. 8. Hyperlipidemia. 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 Monitor heart rate closely Would be concerned about recurrence of rapid A. fib Patient may need permanent pacemaker implantation Continue angiotensin receptor eric for blood pressure control Continue diuretic therapy Cardiology consult appreciate input, 2-D echo , EF 65%, tricuspid regurg, valvular abnormalities noted Discussed with Dr. Walter today On IV lasix: increase to 40mg iv bid. Heart-healthy diet. Fluid restriction to 1000ml/day. Telemetry, Hypertension continue valsartan and low-dose beta eric Monitor BP Hyperlipidemia Lipids elevated: Continue pravastatin 10mg po qhs. Monitor LFTs in 1 month as outpatient DVT prophylaxis with Xarelto. GI prophylaxis with proton pump inhibitor. PT evaluation DW with patient/her daughter at bedside , explained patient condition in detail answered all of her questions A.m. labs Will follow Yakelin Vicente MD December 12, 2016 11:31
[2016-12-12] MEDS: PRAVASTATIN SOD 10 MG TAB PO SCH (21:18)
[2016-12-13] VITALS (25 sets, daily range): BP systolic 107–131; BP diastolic 65–88; PULSE 88–137; RESP 16–18; TEMP 97.7–98.1; O2SAT 94–98
[2016-12-13] MEDS ORDERED: METOPROLOL TARTRATE 25 MG TAB PO SCH ×2 (03:53→21:00)
[2016-12-13] MEDS ORDERED: PILL SPLITTER OTHER PRN (04:00)
[2016-12-13 06:22] LABS: HEMATOCRIT 42.8 % (35.0-46.0); MEAN CELL VOLUME 83.9 FL (80.0-100.0); MEAN CORPUSCULAR HEMOGLOBIN 28.5 PG (27.0-34.0); MEAN CORPUSCULAR HGB CONC 33.9 % (32.0-36.0); PLATELET COUNT 205 TH/MM3 (150-450); RED CELL DISTRIBUTION WIDTH 17.5 % (11.6-17.2); REVIEW FLAG FINAL; WHITE BLOOD COUNT 10.5 TH/MM3 (4.0-11.0)
[2016-12-13 06:43] LABS: BICARBONATE 30.6 MEQ/L (21.0-32.0); POTASSIUM 4.9 MEQ/L (3.5-5.1)
[2016-12-13] MEDS: RIVAROXABAN 20 MG TAB PO SCH (09:00)
[2016-12-13] MEDS: PANTOPRAZOLE SOD 20 MG DELAYED RELEASE TAB PO SCH (09:00)
[2016-12-13] MEDS: VALSARTAN 160 MG TAB PO SCH (09:00)
[2016-12-13] MEDS: POTASSIUM CHLORIDE 20 MEQ CONTROLLED RELEASE TAB PO SCH ×2 (09:00→19:51)
[2016-12-13] MEDS: DOCUSATE SODIUM 100 MG CAP PO SCH ×2 (09:00→19:51)
[2016-12-13] MEDS ORDERED: METOPROLOL TARTRATE 5 MG/5 ML VIAL IV PUSH ONE (13:00)
--- NOTE | 2016-12-13 14:37 | HHI.PR ---
Subjective History of Present Illness pt is tachycardic now HR 120s, dose of BB increased 25 bid 1 dose 5 IV cardizem given sleepy , but arousable Denies chest pain Breathing is okay No cough or sputum production No fever or chills No nausea vomiting Appetite okay Offers no other complaints Vitals/Results Intake & Output 12/12/16 12/12/16 12/13/16 15:00 23:00 07:00 Intake Total 680 ml 360 ml Output Total 225 ml Balance 680 ml 135 ml Intake Oral 680 ml 360 ml IV Total 0 ml Output Urine Total 225 ml # Voids 2 2 # Bowel Movements 1 0 Vital Signs Vital Signs Date Time Temp Pulse Resp B/P Pulse Ox O2 Delivery O2 Flow Rate FiO2 12/13/16 14:01 104 12/13/16 13:00 124 12/13/16 12:01 110 12/13/16 11:30 97.7 89 18 118/68 97 12/13/16 11:30 97 Room Air 12/13/16 11:00 112 12/13/16 10:01 114 12/13/16 09:01 118 12/13/16 08:36 96 21 12/13/16 08:30 96 Room Air 12/13/16 08:30 97.8 112 16 107/88 96 12/13/16 08:00 110 12/13/16 07:00 118 12/13/16 06:00 114 12/13/16 05:00 92 12/13/16 04:00 137 12/13/16 03:20 97.9 115 16 131/79 94 12/13/16 03:20 94 Room Air 12/13/16 03:00 107 12/13/16 02:00 108 12/13/16 01:00 90 12/13/16 00:00 88 12/12/16 23:20 98.0 94 16 150/89 95 12/12/16 23:20 96 Room Air 12/12/16 23:00 101 12/12/16 22:00 86 12/12/16 21:00 98 12/12/16 20:00 96 12/12/16 19:20 97.7 96 16 135/66 96 12/12/16 19:20 96 Room Air 12/12/16 19:00 81 12/12/16 18:37 83 12/12/16 17:51 98 Nasal Cannula 2.00 12/12/16 17:46 79 12/12/16 16:28 76 12/12/16 16:05 97.9 78 16 116/63 98 12/12/16 15:00 79 CBC/BMP: 12/13/16 0540 12/13/16 0540 Lab Results Laboratory Tests Test 12/13/16 05:40 White Blood Count 10.5 TH/MM3 Red Blood Count 5.10 MIL/MM3 Hemoglobin 14.5 GM/DL Hematocrit 42.8 % Mean Corpuscular Volume 83.9 FL Mean Corpuscular Hemoglobin 28.5 PG Mean Corpuscular Hemoglobin 33.9 % Concent Red Cell Distribution Width 17.5 % Platelet Count 205 TH/MM3 Mean Platelet Volume 9.0 FL Sodium Level 136 MEQ/L Potassium Level 4.9 MEQ/L Chloride Level 98 MEQ/L Carbon Dioxide Level 30.6 MEQ/L Anion Gap 7 MEQ/L Blood Urea Nitrogen 24 MG/DL Creatinine 0.77 MG/DL Estimat Glomerular Filtration 71 ML/MIN Rate Random Glucose 76 MG/DL Calcium Level 8.6 MG/DL Physical Exam General General Appearance: No Acute Distress, Comfortable Appearance Remarks Elderly female Eyes Eye Exam: Pupils Equal, Sclera White Ears & Nose Ears & Nose Exam: Nasal Mucosa [place] Throat Throat Exam: Oral Mucosa [place] & Moist Neck Neck Exam: Neck Supple, Trachea Midline Pulmonary Resp Exam: Clear Bilaterally, Breath Sounds Equal, No Distress Cardiology CV Exam: Irregular, Arrhythmia, Tachycardia CV Remarks .No murmur or gallops. Gastrointestinal/Abdomen GI Exam: Soft, Non-Tender, Bowel Sounds Present Integumentary Skin Exam: Warm, Dry Extremeties Extremities Exam: Pitting Edema, Dependent Edema Neurologic Neuro Exam: Alert, Awake, Oriented, Speech Clear, Moving All Extremities Psychiatric Psych Exam: Appropriate Responses VTE Prophylaxis VTE Remarks Xarelto Assessment/Plan Assessment/Plan Assessment/plan: 1. s/p Acute diastolic CHF exacerbation .. 2. Bilateral pleural effusions. 3. ch Atrial fibrillation s/p rapid ventricular rate. 4. s/p symptomatic brdaycardia/hypotension felt to be d/t CCB/BB combination , ?? tachy alice syndrome 5. History of CVA. 6. Macular degeneration. Legally blind. 7. Hypertension. 8. Hyperlipidemia. 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 will inc to q8hr Monitor heart rate closely Patient may need permanent pacemaker implantation I called & spoke w Dr fong , he wants to wait & go slow w this pt at this time cont Xarelto Continue angiotensin receptor eric for blood pressure control Cardiology consult appreciate input, 2-D echo , EF 65%, tricuspid regurg, valvular abnormalities noted Off lasix/kcl Heart-healthy diet. Fluid restriction to 1000ml/day. Telemetry, Hypertension continue valsartan and low-dose beta eric Monitor BP Hyperlipidemia Lipids elevated: Continue pravastatin 10mg po qhs. Monitor LFTs in 1 month as outpatient DVT prophylaxis with Xarelto. GI prophylaxis with proton pump inhibitor. PT evaluation DW with patient A.m. labs Will follow Yakelin Vicente MD December 13, 2016 14:37 answered all of her questions A.m. labs Will follow Yakelin Vicente MD December 13, 2016 14:37
[2016-12-13] MEDS ORDERED: METOPROLOL TARTRATE 5 MG/5 ML VIAL IV ONE (17:30)
[2016-12-13] MEDS: METOPROLOL TARTRATE 25 MG TAB PO SCH ×2 (17:54→22:53)
--- NOTE | 2016-12-13 18:11 | PD.CARD.PN ---
Subjective Subjective Remarks no complaints afib with RVR this am, ASYMPTOMATIC Objective Medications Current Medications Medications (Trade) Dose Ordered Sig/Crescencio Route Start Time Stop Time Status Last Admin (NS Flush) 2 ml UNSCH PRN IV FLUSH 12/08/16 14:45 12/11/16 12:35 (Tylenol) 650 mg Q4H PRN PO 12/08/16 14:45 (Zofran Inj) 4 mg Q6H PRN IVP 12/08/16 14:45 (Colace) 100 mg Q12HR PO 12/08/16 14:45 12/13/16 09:00 (Ambien) 5 mg HS PRN PO 12/08/16 14:45 (Narcan Inj) 0.4 mg UNSCH PRN IV 12/08/16 14:45 (Atarax) 10 mg Q8H PRN PO 12/08/16 14:45 12/10/16 10:05 (Pill Splitter) 1 ea UNSCH PRN OTHER 12/08/16 21:00 (Xarelto) 20 mg DAILY PO 12/08/16 16:15 12/13/16 09:00 (Isoptin Sr) 240 mg HS PO 12/09/16 21:00 Hold 12/10/16 21:34 (Protonix) 20 mg DAILY PO 12/08/16 16:30 12/13/16 09:00 (KCl) 20 meq BID PO 12/09/16 21:00 12/13/16 09:00 (Diovan) 160 mg DAILY PO 12/09/16 11:00 12/13/16 09:00 (Pravachol) 10 mg HS PO 12/09/16 21:00 12/12/16 21:18 (Pill Splitter) 1 ea UNSCH PRN OTHER 12/13/16 04:00 (Lopressor) 25 mg Q8H PO 12/13/16 14:53 12/13/16 17:54 Vital Signs / I&O Vital Signs Date Time Temp Pulse Resp B/P Pulse Ox O2 Delivery O2 Flow Rate FiO2 12/13/16 15:45 98.0 103 18 107/65 97 12/13/16 15:45 97 Room Air 12/13/16 14:01 104 12/13/16 13:00 124 12/13/16 12:01 110 12/13/16 11:30 97.7 89 18 118/68 97 12/13/16 11:30 97 Room Air 12/13/16 11:00 112 12/13/16 10:01 114 12/13/16 09:01 118 12/13/16 08:36 96 21 12/13/16 08:30 96 Room Air 12/13/16 08:30 97.8 112 16 107/88 96 12/13/16 08:00 110 12/13/16 07:00 118 12/13/16 06:00 114 12/13/16 05:00 92 12/13/16 04:00 137 12/13/16 03:20 97.9 115 16 131/79 94 12/13/16 03:20 94 Room Air 12/13/16 03:00 107 12/13/16 02:00 108 12/13/16 01:00 90 12/13/16 00:00 88 12/12/16 23:20 98.0 94 16 150/89 95 12/12/16 23:20 96 Room Air 12/12/16 23:00 101 12/12/16 22:00 86 12/12/16 21:00 98 12/12/16 20:00 96 12/12/16 19:20 97.7 96 16 135/66 96 12/12/16 19:20 96 Room Air 12/12/16 19:00 81 12/12/16 18:37 83 I/O 12/12/16 12/12/16 12/12/16 12/13/16 12/13/16 12/13/16 07:00 15:00 23:00 07:00 15:00 23:00 Intake Total 0 ml 680 ml 360 ml Output Total 225 ml Balance 0 ml 680 ml 135 ml Intake Oral 0 ml 680 ml 360 ml IV Total 0 ml 0 ml Output Urine Total 225 ml # Voids 1 2 2 # Bowel Movements 0 1 0 Physical Exam GENERAL: Well-nourished, well-developed patient. SKIN: Warm and dry. HEAD: Normocephalic. EYES: No scleral icterus. No injection or drainage. NECK: Supple, trachea midline. No JVD or lymphadenopathy. CARDIOVASCULAR: Irr Irr without murmurs, gallops, or rubs. RESPIRATORY: Breath sounds equal bilaterally. No accessory muscle use. GASTROINTESTINAL: Abdomen soft, non-tender, nondistended. EXTREMITIES: No cyanosis, +edema. Laboratory Laboratory Tests Test 12/13/16 05:40 White Blood Count 10.5 TH/MM3 Red Blood Count 5.10 MIL/MM3 Hemoglobin 14.5 GM/DL Hematocrit 42.8 % Mean Corpuscular Volume 83.9 FL Mean Corpuscular Hemoglobin 28.5 PG Mean Corpuscular Hemoglobin 33.9 % Concent Red Cell Distribution Width 17.5 % Platelet Count 205 TH/MM3 Mean Platelet Volume 9.0 FL Sodium Level 136 MEQ/L Potassium Level 4.9 MEQ/L Chloride Level 98 MEQ/L Carbon Dioxide Level 30.6 MEQ/L Anion Gap 7 MEQ/L Blood Urea Nitrogen 24 MG/DL Creatinine 0.77 MG/DL Estimat Glomerular Filtration 71 ML/MIN Rate Random Glucose 76 MG/DL Calcium Level 8.6 MG/DL Assessment and Plan Problem List: (1) Atrial fibrillation with RVR Assessment and Plan: Increase Lopressor to 25 mg PO BID Cont OAC Case discussed with hospitalist (2) Volume overload (3) Congestive heart failure (4) Hypertension Kwadwo Keller MD December 13, 2016 18:11
[2016-12-13] MEDS: PRAVASTATIN SOD 10 MG TAB PO SCH (19:51)
[2016-12-14] VITALS (26 sets, daily range): BP systolic 113–144; BP diastolic 57–96; PULSE 92–114; RESP 16–21; TEMP 97.9–98.7; O2SAT 95–99
[2016-12-14] MEDS: METOPROLOL TARTRATE 25 MG TAB PO SCH (06:17)
[2016-12-14] MEDS: VALSARTAN 160 MG TAB PO SCH (08:44)
[2016-12-14] MEDS: RIVAROXABAN 20 MG TAB PO SCH (08:44)
[2016-12-14] MEDS: PANTOPRAZOLE SOD 20 MG DELAYED RELEASE TAB PO SCH (08:44)
[2016-12-14] MEDS: POTASSIUM CHLORIDE 20 MEQ CONTROLLED RELEASE TAB PO SCH ×2 (09:00→21:31)
[2016-12-14] MEDS: DOCUSATE SODIUM 100 MG CAP PO SCH ×2 (09:00→21:00)
--- NOTE | 2016-12-14 10:53 | PD.CARD.PN ---
Subjective Subjective Remarks no complaints Telemetry Afib better control Ambulating without difficulty No CV complaints Objective Medications Current Medications Medications (Trade) Dose Ordered Sig/Crescencio Route Start Time Stop Time Status Last Admin (NS Flush) 2 ml UNSCH PRN IV FLUSH 12/08/16 14:45 12/11/16 12:35 (Tylenol) 650 mg Q4H PRN PO 12/08/16 14:45 (Zofran Inj) 4 mg Q6H PRN IVP 12/08/16 14:45 (Colace) 100 mg Q12HR PO 12/08/16 14:45 12/13/16 19:51 (Ambien) 5 mg HS PRN PO 12/08/16 14:45 (Narcan Inj) 0.4 mg UNSCH PRN IV 12/08/16 14:45 (Atarax) 10 mg Q8H PRN PO 12/08/16 14:45 12/10/16 10:05 (Pill Splitter) 1 ea UNSCH PRN OTHER 12/08/16 21:00 (Xarelto) 20 mg DAILY PO 12/08/16 16:15 12/14/16 08:44 (Isoptin Sr) 240 mg HS PO 12/09/16 21:00 Hold 12/10/16 21:34 (Protonix) 20 mg DAILY PO 12/08/16 16:30 12/14/16 08:44 (KCl) 20 meq BID PO 12/09/16 21:00 12/13/16 19:51 (Diovan) 160 mg DAILY PO 12/09/16 11:00 12/14/16 08:44 (Pravachol) 10 mg HS PO 12/09/16 21:00 12/13/16 19:51 (Pill Splitter) 1 ea UNSCH PRN OTHER 12/13/16 04:00 (Lopressor) 25 mg Q8H PO 12/13/16 14:53 12/14/16 06:17 Vital Signs / I&O Vital Signs Date Time Temp Pulse Resp B/P Pulse Ox O2 Delivery O2 Flow Rate FiO2 12/14/16 09:01 108 12/14/16 08:45 96 Room Air 12/14/16 08:45 97.9 101 18 144/96 99 12/14/16 08:00 102 12/14/16 07:56 95 21 12/14/16 07:01 100 12/14/16 06:20 109 12/14/16 05:28 97 12/14/16 04:00 98.0 111 18 124/81 96 12/14/16 03:36 102 12/14/16 03:30 95 Room Air 12/14/16 01:00 97 12/14/16 00:00 113 12/14/16 00:00 97.9 113 18 141/94 95 12/14/16 00:00 95 Room Air 12/13/16 21:45 21 12/13/16 19:00 98 Room Air 12/13/16 19:00 114 12/13/16 19:00 98.1 114 18 120/78 98 12/13/16 18:01 118 12/13/16 17:00 122 12/13/16 16:00 114 12/13/16 15:45 98.0 103 18 107/65 97 12/13/16 15:45 97 Room Air 12/13/16 15:00 127 12/13/16 14:01 104 12/13/16 13:00 124 12/13/16 12:01 110 12/13/16 11:30 97.7 89 18 118/68 97 12/13/16 11:30 97 Room Air 12/13/16 11:00 112 I/O 12/13/16 12/13/16 12/13/16 12/14/16 12/14/16 12/14/16 07:00 15:00 23:00 07:00 15:00 23:00 Intake Total 360 ml 582 ml 240 ml Output Total 225 ml 100 ml 250 ml Balance 135 ml 482 ml -10 ml Intake Oral 360 ml 582 ml 240 ml IV Total 0 ml 0 ml Output Urine Total 225 ml 100 ml 250 ml # Voids 2 3 # Bowel Movements 0 1 0 Physical Exam GENERAL: Well-nourished, well-developed patient. SKIN: Warm and dry. HEAD: Normocephalic. EYES: No scleral icterus. No injection or drainage. NECK: Supple, trachea midline. No JVD or lymphadenopathy. CARDIOVASCULAR: Irr Irr without murmurs, gallops, or rubs. RESPIRATORY: Breath sounds equal bilaterally. No accessory muscle use. GASTROINTESTINAL: Abdomen soft, non-tender, nondistended. EXTREMITIES: No cyanosis, +edema. Assessment and Plan Problem List: (1) Atrial fibrillation with RVR Assessment and Plan: Lopressor 5mg IV x1 Increase Lopressor to 75mg PO BID Encourage ambulation Cont OAC (2) Volume overload (3) Congestive heart failure (4) Hypertension Kwadwo Keller MD December 14, 2016 10:53
[2016-12-14] MEDS ORDERED: METOPROLOL TARTRATE 5 MG/5 ML VIAL IV PUSH ONE (11:00)
--- NOTE | 2016-12-14 13:09 | HHI.PR ---
Subjective History of Present Illness HR little better , still around 100 dose of BB was increased further Denies chest pain Breathing is okay No cough or sputum production No fever or chills No nausea vomiting Offers no other complaints daughter is at bedside Vitals/Results Intake & Output 12/13/16 12/13/16 12/14/16 15:00 23:00 07:00 Intake Total 582 ml 240 ml Output Total 100 ml 250 ml Balance 482 ml -10 ml Intake Oral 582 ml 240 ml IV Total 0 ml Output Urine Total 100 ml 250 ml # Voids 3 # Bowel Movements 1 0 Vital Signs Vital Signs Date Time Temp Pulse Resp B/P Pulse Ox O2 Delivery O2 Flow Rate FiO2 12/14/16 12:01 96 12/14/16 11:01 106 12/14/16 11:01 95 Room Air 12/14/16 11:01 98.1 100 18 113/69 95 12/14/16 10:00 112 12/14/16 09:01 108 12/14/16 08:45 96 Room Air 12/14/16 08:45 97.9 101 18 144/96 99 12/14/16 08:00 102 12/14/16 07:56 95 21 12/14/16 07:01 100 12/14/16 06:20 109 12/14/16 05:28 97 12/14/16 04:00 98.0 111 18 124/81 96 12/14/16 03:36 102 12/14/16 03:30 95 Room Air 12/14/16 01:00 97 12/14/16 00:00 113 12/14/16 00:00 97.9 113 18 141/94 95 12/14/16 00:00 95 Room Air 12/13/16 21:45 21 12/13/16 19:00 98 Room Air 12/13/16 19:00 114 12/13/16 19:00 98.1 114 18 120/78 98 12/13/16 18:01 118 12/13/16 17:00 122 12/13/16 16:00 114 12/13/16 15:45 98.0 103 18 107/65 97 12/13/16 15:45 97 Room Air 12/13/16 15:00 127 12/13/16 14:01 104 CBC/BMP: 12/13/16 0540 12/13/16 0540 Physical Exam General General Appearance: No Acute Distress, Comfortable Appearance Remarks Elderly female Eyes Eye Exam: Pupils Equal, Sclera White, Extraocular Movement Intact Ears & Nose Ears & Nose Exam: Nasal Mucosa [place] Throat Throat Exam: Oral Mucosa [place] & Moist Neck Neck Exam: Neck Supple, Trachea Midline Pulmonary Resp Exam: Clear Bilaterally, Breath Sounds Equal, No Distress Cardiology CV Exam: Irregular, Arrhythmia, Tachycardia CV Remarks .No murmur or gallops. Gastrointestinal/Abdomen GI Exam: Soft, Non-Tender, Bowel Sounds Present Integumentary Skin Exam: Warm, Dry Extremeties Extremities Exam: Pitting Edema, Dependent Edema Neurologic Neuro Exam: Alert, Awake, Oriented, Speech Clear, Moving All Extremities Psychiatric Psych Exam: Appropriate Responses VTE Prophylaxis VTE Remarks Xarelto Assessment/Plan Assessment/Plan Assessment/plan: 1. s/p Acute diastolic CHF exacerbation .. 2. Bilateral pleural effusions. 3. ch Atrial fibrillation s/p rapid ventricular rate. 4. s/p symptomatic brdaycardia/hypotension felt to be d/t CCB/BB combination , ?? tachy alice syndrome 5. History of CVA. 6. Macular degeneration. Legally blind. 7. Hypertension. 8. Hyperlipidemia. PLAN: Oxygen beta eric dose further increased by mobility scooter repairer. Monitor heart rate closely cont Xarelto Continue angiotensin receptor eric for blood pressure control Cardiology consult appreciate input, 2-D echo , EF 65%, tricuspid regurg, valvular abnormalities noted Off lasix/kcl Heart-healthy diet. Fluid restriction to 1000ml/day. Telemetry, Hypertension continue valsartan and low-dose beta eric Monitor BP Hyperlipidemia Lipids elevated: Continue pravastatin 10mg po qhs. Monitor LFTs in 1 month as outpatient DVT prophylaxis with Xarelto. GI prophylaxis with proton pump inhibitor. PT evaluation d/w PT & her daughter ss for d/c planning A.m. labs Will follow Yakelin Vicente MD December 14, 2016 13:08 Yakelin Vicente MD December 14, 2016 13:08
[2016-12-14] MEDS: METOPROLOL TARTRATE 50 MG TAB PO SCH ×2 (14:28→21:31)
[2016-12-14] MEDS: CLOTRIMAZOLE 1% CREAM 15 GM TOPICAL SCH (21:31)
[2016-12-14] MEDS: PRAVASTATIN SOD 10 MG TAB PO SCH (21:31)
[2016-12-15] VITALS (29 sets, daily range): BP systolic 113–158; BP diastolic 71–110; PULSE 79–115; RESP 18–20; TEMP 97.4–98.4; O2SAT 94–98
[2016-12-15] MEDS: DOCUSATE SODIUM 100 MG CAP PO SCH ×2 (09:00→21:00)
[2016-12-15] MEDS: POTASSIUM CHLORIDE 20 MEQ CONTROLLED RELEASE TAB PO SCH (09:05)
[2016-12-15] MEDS: CLOTRIMAZOLE 1% CREAM 15 GM TOPICAL SCH ×2 (09:05→22:08)
[2016-12-15] MEDS: METOPROLOL TARTRATE 50 MG TAB PO SCH ×2 (09:06→22:08)
[2016-12-15] MEDS: RIVAROXABAN 20 MG TAB PO SCH (09:06)
[2016-12-15] MEDS: VALSARTAN 160 MG TAB PO SCH (09:06)
[2016-12-15] MEDS: PANTOPRAZOLE SOD 20 MG DELAYED RELEASE TAB PO SCH (09:06)
--- NOTE | 2016-12-15 11:44 | HHI.PR ---
Subjective Remarks "When an I going home" Objective Vital Signs Date Time Temp Pulse Resp B/P Pulse Ox O2 Delivery O2 Flow Rate FiO2 12/15/16 10:00 104 12/15/16 09:00 100 12/15/16 08:00 110 12/15/16 07:00 113 12/15/16 07:00 98 Room Air 12/15/16 07:00 98.1 79 20 156/96 98 12/15/16 06:30 99 12/15/16 05:08 98 12/15/16 04:16 98 12/15/16 03:33 98.0 95 18 147/110 95 12/15/16 03:33 95 Room Air 12/15/16 03:22 115 12/15/16 02:11 84 12/15/16 01:26 96 12/15/16 00:28 98.4 97 18 136/85 94 12/15/16 00:07 103 12/14/16 23:44 94 Room Air 12/14/16 23:43 99 12/14/16 21:00 114 12/14/16 20:15 106 12/14/16 20:02 95 Room Air 12/14/16 19:05 97 12/14/16 19:05 98.1 112 21 138/57 95 12/14/16 18:01 102 12/14/16 17:19 95 21 12/14/16 17:01 92 12/14/16 16:00 98 12/14/16 15:30 95 Room Air 12/14/16 15:30 98.7 107 16 135/81 95 12/14/16 15:01 99 12/14/16 14:01 100 12/14/16 13:00 104 12/14/16 12:01 96 I/O 12/14/16 12/14/16 12/14/16 12/15/16 12/15/16 12/15/16 07:00 15:00 23:00 07:00 15:00 23:00 Intake Total 240 ml 600 ml 360 ml Output Total 250 ml 300 ml Balance -10 ml 300 ml 360 ml Intake Oral 240 ml 600 ml 360 ml IV Total 0 ml Output Urine Total 250 ml 300 ml # Voids 5 2 # Bowel Movements 0 2 0 Result Diagram: 12/13/16 0540 12/13/16 0540 Imaging Alert, fully oriented Lungs: ventilated Heart: S1, S2 tachycardia, irregular Abdomen: soft, no mass Ext: No edema +2 Last Impressions Chest X-Ray 12/10/16 0600 Signed Impressions: Service Date/Time: Saturday, December 10, 2016 05:20 - CONCLUSION: 1. Cardiomegaly and findings of congestive heart failure. The findings are similar to the prior exam. Bashir Odell MD Current Medications Medications (Trade) Dose Ordered Sig/Crescencio Route Start Time Stop Time Status Last Admin (NS Flush) 2 ml UNSCH PRN IV FLUSH 12/08/16 14:45 12/11/16 12:35 (Tylenol) 650 mg Q4H PRN PO 12/08/16 14:45 (Zofran Inj) 4 mg Q6H PRN IVP 12/08/16 14:45 (Colace) 100 mg Q12HR PO 12/08/16 14:45 12/13/16 19:51 (Ambien) 5 mg HS PRN PO 12/08/16 14:45 (Narcan Inj) 0.4 mg UNSCH PRN IV 12/08/16 14:45 (Atarax) 10 mg Q8H PRN PO 12/08/16 14:45 12/10/16 10:05 (Xarelto) 20 mg DAILY PO 12/08/16 16:15 12/15/16 09:06 (Protonix) 20 mg DAILY PO 12/08/16 16:30 12/15/16 09:06 (KCl) 20 meq BID PO 12/09/16 21:00 12/15/16 09:05 (Diovan) 160 mg DAILY PO 12/09/16 11:00 12/15/16 09:06 (Pravachol) 10 mg HS PO 12/09/16 21:00 12/14/16 21:31 (Pill Splitter) 1 ea UNSCH PRN OTHER 12/13/16 04:00 (Lopressor) 50 mg BID PO 12/14/16 14:00 12/15/16 09:06 (Lotrimin 1% Cream) 1 applic Q12HR TOPICAL 12/14/16 21:00 12/15/16 09:05 Assessment and Plan Problem List: (1) Atrial fibrillation with RVR Status: Acute Plan: HR still high. On metoprolol. Digoxin added If rate cannot be controlled. Will need CCB. case discussed with patient. On xarelto (2) congestive heart failure, new onset Status: Acute Plan: Edema plus +2. SOB most likely exacerbated by afib w FVR. K+ 4.9. K= dc Lasix added (3) Hypertension Status: Chronic Plan: SBP at bed side 118/76. Because lasix added. Diovan decreased to 80 mg/day Toma Aguirre MD December 15, 2016 11:44
--- NOTE | 2016-12-15 11:59 | HHI.PR ---
Subjective History of Present Illness HR still around 100s to 110 dose of BB was increased/ digoxin was added by card when can I get out of here Denies chest pain Breathing is okay No cough or sputum production No fever or chills No nausea vomiting Offers no other complaints Vitals/Results Intake & Output 12/14/16 12/14/16 12/15/16 15:00 23:00 07:00 Intake Total 600 ml 360 ml Output Total 300 ml Balance 300 ml 360 ml Intake Oral 600 ml 360 ml Output Urine Total 300 ml # Voids 5 2 # Bowel Movements 2 0 Vital Signs Vital Signs Date Time Temp Pulse Resp B/P Pulse Ox O2 Delivery O2 Flow Rate FiO2 12/15/16 11:00 97.9 99 18 113/71 95 12/15/16 11:00 95 Room Air 12/15/16 11:00 79 12/15/16 10:00 104 12/15/16 09:00 100 12/15/16 08:00 110 12/15/16 07:00 113 12/15/16 07:00 98 Room Air 12/15/16 07:00 98.1 79 20 156/96 98 12/15/16 06:30 99 12/15/16 05:08 98 12/15/16 04:16 98 12/15/16 03:33 98.0 95 18 147/110 95 12/15/16 03:33 95 Room Air 12/15/16 03:22 115 12/15/16 02:11 84 12/15/16 01:26 96 12/15/16 00:28 98.4 97 18 136/85 94 12/15/16 00:07 103 12/14/16 23:44 94 Room Air 12/14/16 23:43 99 12/14/16 21:00 114 12/14/16 20:15 106 12/14/16 20:02 95 Room Air 12/14/16 19:05 97 12/14/16 19:05 98.1 112 21 138/57 95 12/14/16 18:01 102 12/14/16 17:19 95 21 12/14/16 17:01 92 12/14/16 16:00 98 12/14/16 15:30 95 Room Air 12/14/16 15:30 98.7 107 16 135/81 95 12/14/16 15:01 99 12/14/16 14:01 100 12/14/16 13:00 104 12/14/16 12:01 96 CBC/BMP: 12/13/16 0540 12/13/16 0540 Physical Exam General General Appearance: No Acute Distress, Comfortable Appearance Remarks Elderly female Eyes Eye Exam: Sclera White, Extraocular Movement Intact Ears & Nose Ears & Nose Exam: Nasal Mucosa [place] Throat Throat Exam: Oral Mucosa [place] & Moist Neck Neck Exam: Neck Supple, Trachea Midline Pulmonary Resp Exam: Clear Bilaterally, Breath Sounds Equal, No Distress Cardiology CV Exam: Irregular, Arrhythmia, Tachycardia CV Remarks .No murmur or gallops. Gastrointestinal/Abdomen GI Exam: Soft, Non-Tender, Bowel Sounds Present Integumentary Skin Exam: Warm, Dry Extremeties Extremities Exam: Pitting Edema, Dependent Edema Neurologic Neuro Exam: Alert, Awake, Oriented, Speech Clear, Moving All Extremities Psychiatric Psych Exam: Appropriate Responses VTE Prophylaxis VTE Remarks Xarelto Assessment/Plan Assessment/Plan Assessment/plan: 1. s/p Acute diastolic CHF exacerbation .. 2. Bilateral pleural effusions. 3. ch Atrial fibrillation s/p rapid ventricular rate. 4. s/p symptomatic brdaycardia/hypotension felt to be d/t CCB/BB combination , ?? tachy alice syndrome 5. History of CVA. 6. Macular degeneration. Legally blind. 7. Hypertension. 8. Hyperlipidemia. PLAN: Oxygen beta eric /digoxin i Monitor heart rate closely cont Xarelto ARB dose reduced to avoid hypotension lasix/kcl Cardiology consult appreciate input, 2-D echo , EF 65%, tricuspid regurg, valvular abnormalities noted Heart-healthy diet. Fluid restriction to 1200ml/day. Hypertension continue valsartan and low-beta eric Monitor BP Hyperlipidemia Lipids elevated: Continue pravastatin 10mg po qhs. Monitor LFTs in 1 month as outpatient DVT prophylaxis with Xarelto. GI prophylaxis with proton pump inhibitor. PT evaluation d/w PT d/w Dr Aguirre , covering card , pt may need PPP A.m. labs Will follow Yakelin Vicente MD December 15, 2016 11:59
[2016-12-15] MEDS ORDERED: DIGOXIN 0.5 MG/2 ML VIAL IV PUSH ONE (12:00)
[2016-12-15] MEDS: FUROSEMIDE 40 MG TAB PO SCH (12:12)
[2016-12-15] MEDS: PRAVASTATIN SOD 10 MG TAB PO SCH (22:08)
[2016-12-15] MEDS: SODIUM CHLORIDE 0.9% FLUSH 10 ML FLUSH IV FLUSH PRN (22:08)
[2016-12-16] VITALS (28 sets, daily range): BP systolic 125–154; BP diastolic 74–89; PULSE 79–117; RESP 18–20; TEMP 97.4–98.9; O2SAT 94–97
[2016-12-16 05:48] LABS: MEAN CELL VOLUME 83.2 FL (80.0-100.0); MEAN CORPUSCULAR HGB CONC 33.6 % (32.0-36.0); PLATELET COUNT 209 TH/MM3 (150-450); RED BLOOD COUNT 5.17 MIL/MM3 (4.00-5.30); RED CELL DISTRIBUTION WIDTH 17.2 % (11.6-17.2); REVIEW FLAG FINAL; WHITE BLOOD COUNT 8.9 TH/MM3 (4.0-11.0)
[2016-12-16 05:58] LABS: BICARBONATE 32.4 MEQ/L (21.0-32.0); POTASSIUM 4.5 MEQ/L (3.5-5.1)
[2016-12-16] MEDS: DOCUSATE SODIUM 100 MG CAP PO SCH ×2 (09:00→21:00)
[2016-12-16] MEDS: CLOTRIMAZOLE 1% CREAM 15 GM TOPICAL SCH ×2 (09:53→22:14)
[2016-12-16] MEDS: RIVAROXABAN 20 MG TAB PO SCH (09:54)
[2016-12-16] MEDS: METOPROLOL TARTRATE 50 MG TAB PO SCH ×2 (09:54→22:14)
[2016-12-16] MEDS: VALSARTAN 80 MG TAB PO SCH (09:54)
[2016-12-16] MEDS: DIGOXIN 0.125 MG TAB PO SCH (09:54)
[2016-12-16] MEDS: FUROSEMIDE 40 MG TAB PO SCH (09:55)
[2016-12-16] MEDS: PANTOPRAZOLE SOD 20 MG DELAYED RELEASE TAB PO SCH (09:55)
--- NOTE | 2016-12-16 12:21 | HHI.PR ---
Subjective Remarks up in chair eating fine chopped meat and vegetables, done per daughter. No SOB at rest no chest pain controlled HR for now alert (Ashley Holloway) Objective Objective Results - Vital Signs Date Time Temp Pulse Resp B/P Pulse Ox O2 Delivery O2 Flow Rate FiO2 12/16/16 12:00 79 12/16/16 11:00 97 Room Air 12/16/16 11:00 98.9 93 18 126/78 97 12/16/16 11:00 92 12/16/16 10:00 102 12/16/16 09:40 97 12/16/16 09:00 100 12/16/16 08:00 93 12/16/16 07:00 97 Room Air 12/16/16 07:00 83 12/16/16 07:00 97.5 103 18 154/87 97 12/16/16 06:00 88 12/16/16 05:00 100 12/16/16 04:44 96 18 143/89 97 12/16/16 04:00 94 12/16/16 03:00 94 12/16/16 02:00 102 12/16/16 01:00 94 12/16/16 00:00 90 12/15/16 23:47 98 Room Air 12/15/16 23:45 97 18 158/88 98 12/15/16 23:00 91 12/15/16 22:00 102 12/15/16 21:40 21 12/15/16 21:00 104 12/15/16 20:00 106 12/15/16 19:30 98.0 98 20 153/86 97 12/15/16 19:30 97 Room Air 12/15/16 19:00 110 12/15/16 18:00 102 12/15/16 17:00 104 12/15/16 16:00 101 12/15/16 15:00 98 Room Air 12/15/16 15:00 109 12/15/16 15:00 97.4 81 20 146/80 98 12/15/16 14:00 90 12/15/16 13:00 103 I/O 12/15/16 12/15/16 12/15/16 12/16/16 12/16/16 12/16/16 07:00 15:00 23:00 07:00 15:00 23:00 Intake Total 360 ml 480 ml 400 ml Output Total 300 ml 550 ml Balance 360 ml 180 ml -150 ml Intake Oral 360 ml 480 ml 400 ml Output Urine Total 300 ml 550 ml # Voids 2 # Bowel Movements 0 1 0 (Ashley Holloway) Result Diagram: 12/16/1643912/16/16439 ROS General: Fatigue, Weakness (generalized, CV status), Other (10 point ROS done, positives noted, otherwise neg) Cardiac: Other (monitoring tachycardia) Pulmonary: Cough (occ), SOB (exertional) GI: BM (normal regimen) (Ashley Holloway) Physical Exam Physical Exam PHYSICAL EXAMINATION GENERAL: This is a frail female who appears to be in no acute distress. She is alert and awake, up in chair HEAD: Normocephalic without any lesion or mass noted. Facial features appear symmetric. OROPHARYNGEAL: Oropharynx without erythema or edema. NECK: Supple. Trachea midline without deviation. CARDIAC: irregular rhythm, regular rate, S1 and S2 LUNGS: some diminished to auscultation rt. lower base occ. wheeze, occ. rhonchi ABDOMEN: flat,Soft, nontender, no organomegaly or masses. Bowel sounds audible EXTREMITIES: 1+ bilateral lower extremity ankle edema. Above the ankle, essentially negative and improved NEUROLOGICAL: Patient mood and affect appropriate. No focal deficit SKIN:Warm, dry Objective Remarks Breathing better today (Ashley Holloway) A/P Assessment and Plan Assessment/plan: 1. Acute exacerbation of congestive heart failure. 2. Bilateral pleural effusions. 3. Atrial fibrillation with rapid ventricular rate. 4. Hypertension. 5. History of CVA. 6. Macular degeneration. 7. Legally blind. 8. Hyperlipidemia. PLAN: Appetite good as long as food is chopped well for her easement to eat. Daughter has been doing this but ordered chopped today from cafeteria. Encourage patient to continue to eat to maintain strength. Physical therapy , appreciate input, patient is now up in chair. Maintain out of bed every day and when necessary is much as possible for her strength and mobility. Cardiology consult appreciate input, 2-D echo , EF 65%, tricuspid regurg, valvular abnormalities noted Heart rate still above 100 this a.m. Heart-healthy diet. Fluid restriction to 1000ml/day. Telemetry, CHF much improved with treatment regimen and diuresis Dig added also on Lopressor. May look at adding a calcium channel eric if rate stays uncontrolled Coagulation with Xarelto Hypertension Continue verapamil/valsartan., Decrease Diovan today with added diuresis Hyperlipidemia Lipids elevated: Start pravastatin 10mg po qhs. Monitor Lipids/LFTs. GI prophylaxis with proton pump inhibitor. DW with patient/daughter Discussed with Dr. vicente, seen on his behalf Labs reviewed, Vital signs reviewed Discussed With: Nurse, Family (patient), Other (Dr. Vicente, patient seen on his behalf) (Ashley Holloway) Assessment and Plan pt is seen & examined HR better still b/w 90 to 100a cont BB/dig lasixkcl PT eval ss for d.c planning/possible d/c in am if ok w card dr james will f/u in am d/w ashley d/w PT (Yakelin Vicente MD) Ashley Holloway December 16, 2016 12:21 Yakelin Vicente MD December 16, 2016 15:05 behalf) Ashley Holloway December 16, 2016 12:21
--- NOTE | 2016-12-16 15:15 | HHI.PR ---
Subjective Remarks Feeling better Objective Vital Signs Date Time Temp Pulse Resp B/P Pulse Ox O2 Delivery O2 Flow Rate FiO2 12/16/16 14:00 86 12/16/16 13:00 86 12/16/16 12:00 79 12/16/16 11:00 97 Room Air 12/16/16 11:00 98.9 93 18 126/78 97 12/16/16 11:00 92 12/16/16 10:00 102 12/16/16 09:40 97 12/16/16 09:00 100 12/16/16 08:00 93 12/16/16 07:00 97 Room Air 12/16/16 07:00 83 12/16/16 07:00 97.5 103 18 154/87 97 12/16/16 06:00 88 12/16/16 05:00 100 12/16/16 04:44 96 18 143/89 97 12/16/16 04:00 94 12/16/16 03:00 94 12/16/16 02:00 102 12/16/16 01:00 94 12/16/16 00:00 90 12/15/16 23:47 98 Room Air 12/15/16 23:45 97 18 158/88 98 12/15/16 23:00 91 12/15/16 22:00 102 12/15/16 21:40 21 12/15/16 21:00 104 12/15/16 20:00 106 12/15/16 19:30 98.0 98 20 153/86 97 12/15/16 19:30 97 Room Air 12/15/16 19:00 110 12/15/16 18:00 102 12/15/16 17:00 104 12/15/16 16:00 101 I/O 12/15/16 12/15/16 12/15/16 12/16/16 12/16/16 12/16/16 07:00 15:00 23:00 07:00 15:00 23:00 Intake Total 360 ml 480 ml 400 ml Output Total 300 ml 550 ml Balance 360 ml 180 ml -150 ml Intake Oral 360 ml 480 ml 400 ml Output Urine Total 300 ml 550 ml # Voids 2 # Bowel Movements 0 1 0 Result Diagram: 12/16/1643912/16/16 0440 Imaging Alert, fully oriented Lungs: ventilated Heart: S1, S2 irregular, tachycardia Abdomen: soft, no mass Ext: no edema Current Medications Medications (Trade) Dose Ordered Sig/Crescencio Route Start Time Stop Time Status Last Admin (NS Flush) 2 ml UNSCH PRN IV FLUSH 12/08/16 14:45 12/15/16 22:08 (Tylenol) 650 mg Q4H PRN PO 12/08/16 14:45 (Zofran Inj) 4 mg Q6H PRN IVP 12/08/16 14:45 (Colace) 100 mg Q12HR PO 12/08/16 14:45 12/13/16 19:51 (Ambien) 5 mg HS PRN PO 12/08/16 14:45 (Narcan Inj) 0.4 mg UNSCH PRN IV 12/08/16 14:45 (Atarax) 10 mg Q8H PRN PO 12/08/16 14:45 12/10/16 10:05 (Protonix) 20 mg DAILY PO 12/08/16 16:30 12/16/16 09:55 (Pravachol) 10 mg HS PO 12/09/16 21:00 12/15/16 22:08 (Pill Splitter) 1 ea UNSCH PRN OTHER 12/13/16 04:00 (Lopressor) 50 mg BID PO 12/14/16 14:00 12/16/16 09:54 (Lotrimin 1% Cream) 1 applic Q12HR TOPICAL 12/14/16 21:00 12/16/16 09:53 (Diovan) 80 mg DAILY PO 12/16/16 09:00 12/16/16 09:54 (Lasix) 40 mg DAILY PO 12/15/16 12:00 12/16/16 09:55 (Lanoxin) 0.125 mg DAILY PO 12/16/16 09:00 12/16/16 09:54 (Xarelto) 15 mg DAILY PO 12/17/16 09:00 Assessment and Plan Problem List: (1) Atrial fibrillation with RVR Status: Acute Plan: Patient condition significantly improve. BP ok HR in the low 100s Cardizem 30 mg PO q6hrs added. If tolerate, can be converted in AM to cardizem CD 120mg/ day Case discussed with patient. (2) congestive heart failure, new onset Status: Acute Plan: Edema resolved. Continue with current meds K 4.5. (3) Hypertension Status: Chronic Plan: SBP 154 Toma Aguirre MD December 16, 2016 15:15
[2016-12-16] MEDS: DILTIAZEM HCL 30 MG TAB PO SCH ×2 (17:40→23:57)
[2016-12-16] MEDS: PRAVASTATIN SOD 10 MG TAB PO SCH (22:14)
[2016-12-16] MEDS: SODIUM CHLORIDE 0.9% FLUSH 10 ML FLUSH IV FLUSH PRN (22:15)
[2016-12-17] VITALS (15 sets, daily range): BP systolic 112–140; BP diastolic 68–80; PULSE 71–97; RESP 16–18; TEMP 96.8–97.2; O2SAT 96–98
[2016-12-17] MEDS: DILTIAZEM HCL 30 MG TAB PO SCH ×2 (05:40→12:00)
[2016-12-17] MEDS ORDERED: RIVAROXABAN 15 MG TAB PO SCH (09:00)
--- NOTE | 2016-12-17 09:40 | PD.CARD.PN ---
Subjective Subjective Remarks no complaints no CV complaints Afib controlled Objective Medications Current Medications Medications (Trade) Dose Ordered Sig/Crescencio Route Start Time Stop Time Status Last Admin (NS Flush) 2 ml UNSCH PRN IV FLUSH 12/08/16 14:45 12/16/16 22:15 (Tylenol) 650 mg Q4H PRN PO 12/08/16 14:45 (Zofran Inj) 4 mg Q6H PRN IVP 12/08/16 14:45 (Colace) 100 mg Q12HR PO 12/08/16 14:45 12/13/16 19:51 (Ambien) 5 mg HS PRN PO 12/08/16 14:45 (Narcan Inj) 0.4 mg UNSCH PRN IV 12/08/16 14:45 (Atarax) 10 mg Q8H PRN PO 12/08/16 14:45 12/10/16 10:05 (Protonix) 20 mg DAILY PO 12/08/16 16:30 12/16/16 09:55 (Pravachol) 10 mg HS PO 12/09/16 21:00 12/16/16 22:14 (Pill Splitter) 1 ea UNSCH PRN OTHER 12/13/16 04:00 (Lopressor) 50 mg BID PO 12/14/16 14:00 12/16/16 22:14 (Lotrimin 1% Cream) 1 applic Q12HR TOPICAL 12/14/16 21:00 12/16/16 22:14 (Diovan) 80 mg DAILY PO 12/16/16 09:00 12/16/16 09:54 (Lasix) 40 mg DAILY PO 12/15/16 12:00 12/16/16 09:55 (Lanoxin) 0.125 mg DAILY PO 12/16/16 09:00 12/16/16 09:54 (Xarelto) 15 mg DAILY PO 12/17/16 09:00 (Cardizem) 30 mg Q6HR PO 12/16/16 18:00 12/17/16 05:40 Vital Signs / I&O Vital Signs Date Time Temp Pulse Resp B/P Pulse Ox O2 Delivery O2 Flow Rate FiO2 12/17/16 08:01 97.2 96 18 140/70 96 12/17/16 07:59 71 12/17/16 07:57 96 Room Air 12/17/16 06:00 76 12/17/16 05:00 80 12/17/16 04:00 78 12/17/16 03:08 98 Room Air 12/17/16 03:08 77 16 119/80 98 12/17/16 03:00 73 12/17/16 02:00 82 12/17/16 01:00 82 12/17/16 00:00 78 12/16/16 23:49 97 Room Air 12/16/16 23:49 88 18 125/74 97 12/16/16 23:00 91 12/16/16 22:00 86 12/16/16 21:00 86 12/16/16 20:00 94 12/16/16 19:30 97.4 96 18 151/81 94 12/16/16 19:30 94 Room Air 12/16/16 19:04 21 12/16/16 19:00 97 12/16/16 18:00 108 12/16/16 17:00 117 12/16/16 16:00 100 12/16/16 15:00 86 12/16/16 15:00 97.5 87 20 144/76 97 12/16/16 15:00 97 Room Air 12/16/16 14:00 86 12/16/16 13:00 86 12/16/16 12:00 79 12/16/16 11:00 97 Room Air 12/16/16 11:00 98.9 93 18 126/78 97 12/16/16 11:00 92 12/16/16 10:00 102 12/16/16 09:40 97 I/O 12/16/16 12/16/16 12/16/16 12/17/16 12/17/16 12/17/16 06:59 14:59 22:59 06:59 14:59 22:59 Intake Total 400 ml 720 ml 400 ml Output Total 550 ml 910 ml 700 ml Balance -150 ml -190 ml -300 ml Intake Oral 400 ml 720 ml 400 ml Output Urine Total 550 ml 910 ml 700 ml # Voids 1 # Bowel Movements 0 0 Physical Exam GENERAL: Well-nourished, well-developed patient. SKIN: Warm and dry. HEAD: Normocephalic. EYES: No scleral icterus. No injection or drainage. NECK: Supple, trachea midline. No JVD or lymphadenopathy. CARDIOVASCULAR: Irr Irr without murmurs, gallops, or rubs. RESPIRATORY: Breath sounds equal bilaterally. No accessory muscle use. GASTROINTESTINAL: Abdomen soft, non-tender, nondistended. EXTREMITIES: No cyanosis, +edema. Assessment and Plan Problem List: (1) Atrial fibrillation with RVR Assessment and Plan: Patient condition significantly improve. BP ok Afib controlled Cardizem 30 mg PO q6hrs added. Convert to Cardizem CD 120mg/day Cont OAC Stable from CV standpoint to be d/c home today (2) Volume overload (3) Congestive heart failure (4) Hypertension Kwadwo Keller MD December 17, 2016 09:40
[2016-12-17] MEDS: DOCUSATE SODIUM 100 MG CAP PO SCH (09:42)
[2016-12-17] MEDS: PANTOPRAZOLE SOD 20 MG DELAYED RELEASE TAB PO SCH (09:42)
[2016-12-17] MEDS: FUROSEMIDE 40 MG TAB PO SCH (09:42)
[2016-12-17] MEDS: VALSARTAN 80 MG TAB PO SCH (09:42)
[2016-12-17] MEDS: CLOTRIMAZOLE 1% CREAM 15 GM TOPICAL SCH (09:42)
[2016-12-17] MEDS: METOPROLOL TARTRATE 50 MG TAB PO SCH (09:43)
[2016-12-17] MEDS: DIGOXIN 0.125 MG TAB PO SCH (09:43)
[2016-12-17] MEDS ORDERED: DIGO0.12 PO (10:42)
[2016-12-17] MEDS ORDERED: PRAV10TA PO (10:42)
[2016-12-17] MEDS ORDERED: DIOV80TA4 PO (10:42)
[2016-12-17] MEDS ORDERED: XARE20TA PO (10:42)
[2016-12-17] MEDS ORDERED: FURO40TA PO (10:42)
[2016-12-17] MEDS ORDERED: METO-309 PO (10:42)
--- NOTE | 2016-12-17 10:52 | HHI.PR ---
Subjective Remarks up in chair with both legs elevated Daughter in room No SOB at rest no chest pain controlled HR for now alert, responsive, good affect (Ashley Holloway) Objective Objective Results - Vital Signs Date Time Temp Pulse Resp B/P Pulse Ox O2 Delivery O2 Flow Rate FiO2 12/17/16 08:01 97.2 96 18 140/70 96 12/17/16 07:59 71 12/17/16 07:57 96 Room Air 12/17/16 06:00 76 12/17/16 05:00 80 12/17/16 04:00 78 12/17/16 03:08 98 Room Air 12/17/16 03:08 77 16 119/80 98 12/17/16 03:00 73 12/17/16 02:00 82 12/17/16 01:00 82 12/17/16 00:00 78 12/16/16 23:49 97 Room Air 12/16/16 23:49 88 18 125/74 97 12/16/16 23:00 91 12/16/16 22:00 86 12/16/16 21:00 86 12/16/16 20:00 94 12/16/16 19:30 97.4 96 18 151/81 94 12/16/16 19:30 94 Room Air 12/16/16 19:04 21 12/16/16 19:00 97 12/16/16 18:00 108 12/16/16 17:00 117 12/16/16 16:00 100 12/16/16 15:00 86 12/16/16 15:00 97.5 87 20 144/76 97 12/16/16 15:00 97 Room Air 12/16/16 14:00 86 12/16/16 13:00 86 12/16/16 12:00 79 12/16/16 11:00 97 Room Air 12/16/16 11:00 98.9 93 18 126/78 97 12/16/16 11:00 92 I/O 12/16/16 12/16/16 12/16/16 12/17/16 12/17/16 12/17/16 06:59 14:59 22:59 06:59 14:59 22:59 Intake Total 400 ml 720 ml 400 ml Output Total 550 ml 910 ml 700 ml Balance -150 ml -190 ml -300 ml Intake Oral 400 ml 720 ml 400 ml Output Urine Total 550 ml 910 ml 700 ml # Voids 1 # Bowel Movements 0 0 (Ashley Holloway) Result Diagram: 12/16/1643912/16/16439 ROS General: Weakness (generalized but much improved), Other (10 point ROS done positives noted otherwise systems negative heart rate is controlled) Cardiac: Edema (improved) Pulmonary: SOB (no shortness of breath at rest does have some exertional dyspnea but controlled for now) (Ashley Holloway) Physical Exam Physical Exam PHYSICAL EXAMINATION GENERAL: This is a well-developed, elderly female who appears to be in no acute distressat rest. She is alert and awake, HEAD: Normocephalic without any lesion or mass noted. Facial features appear symmetric. OROPHARYNGEAL: Oropharynx without erythema or edema. NECK: Supple. No nuchal rigidity or lymphadenopathy. Trachea midline without deviation. CARDIAC: irregular rhythm, rate controlled, S1 and S2 are heard. LUNGS: Clear to auscultation bilaterally. Volumes adequate, no cough, no wheezes or rhonchi ABDOMEN: Soft, nontender, no organomegaly or masses. Bowel sounds active EXTREMITIES: No acute lower extremity edema. Pulses intact NEUROLOGICAL: Patient mood and affect appropriate. No focal deficit SKIN:Warm and moist Objective Remarks Doing so much better and breathing better to. I'm hoping to go shopping soon. ( Ashley Holloway) A/P Assessment and Plan Assessment/plan: 1. Acute exacerbation of congestive heart failure. 2. Bilateral pleural effusions. 3. Atrial fibrillation with rapid ventricular rate. 4. Hypertension. 5. History of CVA. 6. Macular degeneration. 7. Legally blind. 8. Hyperlipidemia. PLAN: Vital signs reviewed normal ranges which includes no fever, heart rate less than 100 Appetite good, ordered food to be chopped, she tolerates much better Physical therapy , appreciate input, patient is now up in chair. Maintain out of bed every day and when necessary is much as possible for her strength and mobility. Cardiology consult appreciate input, 2-D echo , EF 65%, tricuspid regurg, valvular abnormalities noted Telemetry, Dig added also on Lopressor. Coagulation with Xarelto Atrial fib is controlled. With Cardizem. Will convert Cardizem CD 220 mg per day Stable from a cardiac standpoint will follow-up with me in the office next Saturday one week Hypertension Medical management with BP meds and Cardizem Hyperlipidemia Stable medical management GI prophylaxis with proton pump inhibitor. DW with patient/daughter Discussed with Dr. Mckenzie, seen on his behalf Discharge planning discussed with daughter about finding patient a PCP. She is looking for someone in the [place] area. Patient is alert cooperative and feeling much better. Stable from a medical standpoint for discharge. Discharge Planning Home Discussed With: Nurse, Family (patient), Other (Dr. Vicente, patient seen on his behalf) (Ashley Holloway) Assessment and Plan pt seen and examined as above labs and meds reviewed previous notes reviewed plan of care georges vasquezp georges rn dw pt and daughter at bedside in detail about dc planning kaela cardiology input rad data reviewed dc home today total time spent in dc planning and managment of this pt is more than 45 min ( South Mckenzie MD) Ashley Holloway December 17, 2016 10:51 South Mckenzie MD December 17, 2016 13:36
[2016-12-17] MEDS ORDERED: CARD120C4 PO (13:01)
--- NOTE | 2017-01-28 16:17 | HHI.DS ---
Discharge Summary Admission Date December 10, 2016 at 17:18 Discharge Date: December 17, 2016 Admitting Diagnosis CHF exacerbation Brief History The patient was a very pleasant 86-year-old white female who presented to the emergency room with complaints of worsening shortness of breath. As per the patient and the daughter who is the historian, the patient has a history of hypertension, congestive heart failure, history of CVA and the patient has noticed that she has been having increasing shortness of breath as well as swelling of her bilateral lower extremities for the last four to seven days. The patient is a resident at [facility] and has a baby formula worker there, but does not have a local baby formula worker. In the emergency room, a chest x-ray done showed pleural effusion so the patient was admitted for further evaluation and management. PE at Discharge PHYSICAL EXAMINATION GENERAL: This was a well-developed, elderly female who appears to be in no acute distress, alert and awake, HEAD: Normocephalic without any lesion or mass noted. Facial features appear symmetric. OROPHARYNGEAL: Oropharynx without erythema or edema. NECK: Supple. No nuchal rigidity or lymphadenopathy. Trachea midline without deviation. CARDIAC: irregular rhythm, rate controlled, S1 and S2 are heard. LUNGS: Clear to auscultation bilaterally. Volumes adequate, no cough, no wheezes or rhonchi ABDOMEN: Soft, nontender, no organomegaly or masses. Bowel sounds active EXTREMITIES: No acute lower extremity edema. Pulses intact NEUROLOGICAL: Patient mood and affect appropriate. No focal deficit SKIN:Warm and moist Objective Remarks Doing so much better and breathing better to. I'm hoping to go shopping soon. Hospital Course In the emergency room, a chest x-ray done showed pleural effusion so the patient was admitted for further evaluation and management. He's are the diagnoses that were used to treat this patient during this hospital stay, and developed the plan of care 1. Acute exacerbation of congestive heart failure. 2. Bilateral pleural effusions. 3. Atrial fibrillation with rapid ventricular rate. 4. Hypertension. 5. History of CVA. 6. Macular degeneration. 7. Legally blind. 8. Hyperlipidemia. Vital signs reviewed normal ranges which includes no fever, heart rate less than 100. Initially had some atrial fibrillation with rapid ventricular response. Currently has been controlled with medications Appetite good, ordered food to be chopped, she tolerates much better Physical therapy , appreciate input, patient is now up in chair. Maintain out of bed every day and when necessary is much as possible for her strength and mobility. Cardiology consult appreciate input, for her uncontrolled heart rate atrial fib Patient had 2-D echo , EF 65%, tricuspid regurg, valvular abnormalities noted Telemetry used to monitored throughout hospital stay Lanoxin added , also on Lopressor. Coagulation with Xarelto for DVT prophylaxis Atrial fib is now controlled. With Cardizem IV. Will convert Cardizem CD 220 mg per day On day of discharge patient was considered Stable from a cardiac standpoint will follow-up with me in the office next Saturday one week Hypertension, monitored throughout hospital stay Medical management with BP meds and Cardizem Hyperlipidemia Stable medical management GI prophylaxis with proton pump inhibitor. DW with patient/daughter her course of treatment Discharge planning discussed with daughter about finding patient a PCP. She is looking for someone in the [place] area. Dr. Mckenzie saw patient on day of discharge and examined meds ,notes ,and labs Plan of care was discussed in detail with daughter and SOFTWARE SYSTEMS ARCHITECT kaela cardiology input rad data reviewed dc home today total time spent in dc planning and managment of this pt is more than 45 min Pt Condition on Discharge: Stable Discharge Disposition: Disch w/ Home Health Serv Discharge Instructions DIET: Follow Instructions for: Heart Healthy Diet Fluid Restrictions: 1400cc/day Activities you can perform: Weight Bearing as Jakob Follow up Referrals: Cardiology - 3 Weeks PCP Follow-up - 1 Week New Medications: Diltiazem CD 24 HR (Cardizem CD 24 HR) 120 Mg Caper 120 MG PO DAILY heart ryth #30 Ref 0 CAP Furosemide (Lasix) 40 Mg Tab 40 MG PO DAILY chf #30 Ref 0 TAB Digoxin (Digoxin) 0.125 Mg Tab 0.125 MG PO DAILY heart rythum #30 TAB Furosemide (Furosemide) 40 Mg Tab 40 MG PO DAILY chf #30 TAB Metoprolol Tartrate (Lopressor) 50 Mg Tab 50 MG PO BID chf #30 TAB Potassium Chloride Microencaps (Potassium Chloride Microencaps) 20 Meq Tab 20 MEQ PO DAILY low K #30 TAB Pravastatin (Pravastatin) 10 Mg Tab 10 MG PO HS high cholestrol #30 TAB Valsartan (Diovan) 80 Mg Tab 80 MG PO DAILY htn #30 TAB Changed Medications: Rivaroxaban (Xarelto) 20 Mg Tab 15 MG PO DAILY Blood Clot Prevention #30 Ref 0 TAB (Changed from: 20 MG) Continued Medications: Verapamil ER 24 HR (Verapamil ER 24 HR) 240 Mg Tab 240 MG PO HS #30 Ref 0 TAB Discontinued Medications: Prednisone (Prednisone) 20 Mg Tab 20 MG PO DAILY Allergy Management #1 TAB Ashley Holloway Jan 28, 2017 16:17
== END 2016-12-17 13:44 | disposition home or self-care (01) | DRG 292 ==
LOC: NEPE 11:16 → NEDA 13:54 → NEPFCDU 18:48 → OBSVTOIN 12-10 17:18 → HIME 12-11 11:58 → HCIN 12-12 11:21
PROVIDERS: ADMIT Family Medicine; ATTEND Family Medicine
DX: I11.0 Hypertensive heart disease with heart failure (principal); I47.2 Ventricular tachycardia; I49.5 Sick sinus syndrome; I48.0 Paroxysmal atrial fibrillation; I95.2 Hypotension due to drugs; I50.33 Acute on chronic diastolic (congestive) heart failure; E78.5 Hyperlipidemia, unspecified; H54.8 Legal blindness, as defined in USA; H35.30 Unspecified macular degeneration; T46.1X5A Adverse effect of calcium-channel blockers, initial encounter; E87.6 Hypokalemia; Z79.01 Long term (current) use of anticoagulants
CPT/HCPCS: 71010; 76937; 80048; 80053; 80061; 82550; 83735; 83880; 84439; 84443; 84484; 85025; 85027; 85610; 85730; 87641; 93005; 93306; 94664; 96374; G0378; G8987-GP; G8988-GP; J0461; J1160; J1610; J1940; J7050; J7613

== ENCOUNTER 2017-03-29 18:10 | Observation (INO) | payer MEDICARE, OTHER ==
[~2017-03-29] VITALS: Ht 165.1 cm; Wt 54.5 kg
[~2017-03-29 18:10] MED LIST changes: +CARD120C4 PO; -CLON0.1T PO; +DIGO0.12 PO; -DILT1TAB2 PO; +DIOV80TA4 PO; +FURO1TAB60 PO; -FURO1TAB62 PO; +FURO40TA PO; -HYDR-755 PO; -METO100T PO; -PRAD150C PO; +PRAV10TA PO; -PRED20 PO; -VALS160T4 PO; +VERA1TAB17 PO; +XARE20TA PO
[2017-03-29 18:18] VITALS: BP 175/77; PULSE 47; RESP 18; TEMP 97.7; O2SAT 96
--- NOTE | 2017-03-29 19:13 | PD ---
HPI Chief Complaint: Respiratory Symptoms Time Seen by Provider: 19:12 Travel History International Travel<30 days: No Contact w/Intl Traveler<30days: No Traveled to known affect area: No History of Present Illness HPI 86-year-old female came to the emergency room brought by her daughter with history of generalized weakness and out of energy since this morning. Patient is usually up and about and always on the go. However this morning she did not feel quite herself. For the past 2 days patient's heart rate has been running low and at one point was recorded in the 30s by the physical therapist who comes at her house. She had called patient's line producer Dr. Walter but since patient was asymptomatic it was told nothing to do about it at that time. However the suggestion was that if she became symptomatic she should go to the emergency room. Later in the afternoon when patient's daughter encouraged her to take a walk and come to another room patient got short of breath mid way. She had to sit down. She denies of any chest pain or syncopal episode. However given all the symptoms the daughter decided to bring her to the emergency room. In triage patient had a heart rate in the low 40s. She was awake and answering questions. She continues to be chest pain-free. Patient was noticed to be on 3 different medications that can lower the heart rate including digoxin, Cardizem and Lopressor. PFSH Past Medical History Narrative Medical List of her past medical, surgical, social and family history is reviewed from the nursing note. Hx Anticoagulant Therapy: Yes Heart Rhythm Problems: Yes Cancer: No Cardiovascular Problems: Yes Congestive Heart Failure: Yes Cerebrovascular Accident: Yes Diabetes: No Endocrine: No Genitourinary: No Hypertension: Yes Immune Disorder: No Musculoskeletal: No Neurologic: Yes (CVA (2015)) Psychiatric: No Reproductive: No Respiratory: No Past Surgical History Appendectomy: Yes Body Medical Devices: KAMAR IN STOMACH Social History Alcohol Use: No Tobacco Use: No Substance Use: No Allergies-Medications (Allergen,Severity, Reaction): Coded Allergies: edoxaban (Unverified Allergy, Severe, Rash, 03/26/17) morphine (Unverified Allergy, Severe, Hives, 03/26/17) Comments List of her allergies reviewed from the nursing note. Reported Meds & Prescriptions Reported Meds & Active Scripts Active Pravastatin 10 Mg Tab 10 Mg PO HS Xarelto (Rivaroxaban) 20 Mg Tab 15 Mg PO DAILY Lasix (Furosemide) 40 Mg Tab 40 Mg PO DAILY Potassium Chloride Microencaps 20 Meq Tab 20 Meq PO DAILY Narrative Medication List of her home medications reviewed from the nursing note. Review of Systems Except as stated in HPI: all other systems reviewed are Neg Physical Exam Narrative GENERAL: Elderly, frail, alert, moderate distress SKIN: Focused skin assessment warm/dry. HEAD: Atraumatic. Normocephalic. EYES: Pupils equal and round. No scleral icterus. No injection or drainage. ENT: No nasal bleeding or discharge. Mucous membranes pink and moist. NECK: Trachea midline. No JVD. CARDIOVASCULAR: Regular rate and rhythm. Bradycardia. No murmur appreciated. RESPIRATORY: No accessory muscle use. Clear to auscultation. Breath sounds equal bilaterally. GASTROINTESTINAL: Abdomen soft, non-tender, nondistended. Hepatic and splenic margins not palpable. MUSCULOSKELETAL: No obvious deformities. No clubbing. No cyanosis. No edema. NEUROLOGICAL: Awake and alert. No obvious cranial nerve deficits. Motor grossly within normal limits. Normal speech. PSYCHIATRIC: Appropriate mood and affect; insight and judgment normal. Data Data Last Documented VS Vital Signs Date Time Temp Pulse Resp B/P (MAP) Pulse Ox O2 Delivery O2 Flow Rate FiO2 03/29/17 19:39 18 03/29/17 19:39 98 Nasal Cannula 2 03/29/17 18:18 97.7 47 175/77 (109) Orders Orders Electrocardiogram (03/29/17 ) Basic Metabolic Panel (Bmp) (03/29/17 19:19) Ckmb (Isoenzyme) Profile (03/29/17 19:19) Complete Blood Count With Diff (03/29/17 19:19) Magnesium (Mg) (03/29/17 19:19) Prothrombin Time / Inr (Pt) (03/29/17 19:19) Act Partial Throm Time (Ptt) (03/29/17 19:19) Troponin I (03/29/17 19:19) Chest, Single Ap (03/29/17 19:19) Ecg Monitoring (03/29/17 19:19) Bilateral Bp Monitoring (03/29/17 19:19) Iv Access Insert/Monitor (03/29/17 19:19) Oximetry (03/29/17 19:19) Oxygen Administration (03/29/17 19:19) Sodium Chloride 0.9% Flush (Ns Flush) (03/29/17 19:30) Urinalysis - C+S If Indicated (03/29/17 19:24) Digoxin (03/29/17 19:19) Urine Culture (03/29/17 19:50) Nitrofurantoin Monohyd Macrocr (Macrobid (03/29/17 21:15) Furosemide Inj (Lasix Inj) (03/29/17 21:15) Metoprolol Tartrate (Lopressor) (03/30/17 09:00) Place In Observation (03/29/17 ) Vital Signs (Adult) Q4H (03/29/17 21:43) Activity Oob With Assistance (03/29/17:43) Claims Assistant / Telemetry .CONTINUOUS (03/29/17 21:43) Intake + Output GARY.QSHIFT (03/29/17 21:43) Diet Heart Healthy (03/30/17 Breakfast) Sodium Chloride 0.9% Flush (Ns Flush) (03/29/17 21:45) Sodium Chloride 0.9% Flush (Ns Flush) (03/30/17 09:00) Ondansetron Inj (Zofran Inj) (03/29/17 21:45) Comprehensive Metabolic Panel (03/30/17 06:00) Complete Blood Count With Diff (03/30/17 06:00) Pharmacologic Contraindication (03/29/17 21:43) Acetaminophen (Tylenol) (03/29/17 21:45) Acetamin-Hydrocod 325-5 Mg ([place] 5-325 (03/29/17 21:45) Acetamin-Hydrocod 325-10 Mg ([place] 10-32 (03/29/17 21:45) Docusate Sodium-Senna (Kim-Colace) (03/30/17 09:00) Magnesium Hydroxide Liq (Milk Of Magnesi (03/29/17 21:45) Sennosides (Senokot) (03/29/17 21:45) Bisacodyl Supp (Dulcolax Supp) (03/29/17 21:45) Lactulose Liq (Lactulose Liq) (03/29/17 21:45) Furosemide (Lasix) (03/30/17 09:00) Pravastatin (Pravachol) (03/30/17 21:00) Consult Cardiology (03/29/17 ) Admit Order (Ed Use Only) (03/29/17 21:46) Rivaroxaban (Xarelto) (03/30/17 09:00) Labs Laboratory Tests Test 03/29/17 19:30 03/29/17 19:50 White Blood Count 8.2 TH/MM3 Red Blood Count 4.77 MIL/MM3 Hemoglobin 13.8 GM/DL Hematocrit 41.6 % Mean Corpuscular Volume 87.3 FL Mean Corpuscular Hemoglobin 28.9 PG Mean Corpuscular Hemoglobin Concent 33.1 % Red Cell Distribution Width 14.2 % Platelet Count 216 TH/MM3 Mean Platelet Volume 10.0 FL Neutrophils (%) (Auto) 48.8 % Lymphocytes (%) (Auto) 33.8 % Monocytes (%) (Auto) 14.0 % Eosinophils (%) (Auto) 2.1 % Basophils (%) (Auto) 1.3 % Neutrophils # (Auto) 4.0 TH/MM3 Lymphocytes # (Auto) 2.8 TH/MM3 Monocytes # (Auto) 1.2 TH/MM3 Eosinophils # (Auto) 0.2 TH/MM3 Basophils # (Auto) 0.1 TH/MM3 CBC Comment DIFF FINAL Differential Comment Prothrombin Time 16.8 SEC Prothromb Time International Ratio 1.5 RATIO Activated Partial Thromboplast Time 40.6 SEC Blood Urea Nitrogen 12 MG/DL Creatinine 0.81 MG/DL Random Glucose 85 MG/DL Calcium Level 8.6 MG/DL Magnesium Level 2.1 MG/DL Sodium Level 135 MEQ/L Potassium Level 4.1 MEQ/L Chloride Level 99 MEQ/L Carbon Dioxide Level 31.6 MEQ/L Anion Gap 4 MEQ/L Estimat Glomerular Filtration Rate 67 ML/MIN Total Creatine Kinase 43 U/L Troponin I 0.02 NG/ML Digoxin Level 1.7 NG/ML Urine Color YELLOW Urine Turbidity HAZY Urine pH 5.0 Urine Specific [place] 1.009 Urine Protein NEG mg/dL Urine Glucose (UA) NEG mg/dL Urine Ketones NEG mg/dL Urine Occult Blood TRACE Urine Nitrite POS Urine Bilirubin NEG Urine Urobilinogen LESS THAN 2.0 MG/DL Urine Leukocyte Esterase MOD Urine RBC 6 /hpf Urine WBC 51 /hpf Urine Squamous Epithelial Cells <1 /hpf Urine Bacteria MOD /hpf Urine Hyaline Casts 2 /lpf Microscopic Urinalysis Comment CULTURE INDICATED MDM Medical Decision Making Medical Screen Exam Complete: Yes Emergency Medical Condition: Yes Medical Record Reviewed: Yes Interpretation(s) Twelve-lead EKG was reviewed by me. Normal sinus rhythm, normal axis, bradycardia, nonspecific ST-T wave changes. Heart rate of 45 bpm. Differential Diagnosis CHF, symptomatically bradycardia, electrolyte abnormality, digoxin toxicity, medication related bradycardia Narrative Course 9:30 PM blood test results of back and within acceptable limits. UA is positive for UTI. Chest x-ray suggestive of bilateral pleural effusion. I gave her dose of Lasix IV 40 mg and by mouth Macrobid. Case was discussed with Dr. Waters who is dietitian consultant and covering Dr. Walter and the group. When he listened to the entire presentation he recommended that the patient should be admitted overnight at least for observation and monitoring heart rate. Concern obviously is the bradycardia. He recommended to hold the digoxin and reduce the Lopressor to 25 mg twice a day. The case was discussed with the hospitalist who has accepted the patient. I let the patient and the daughter know. Procedures EKG Prior to Arrival: No Diagnosis Primary Impression: Symptomatic bradycardia Additional Impressions: Pleural effusion Respiratory distress UTI (urinary tract infection) Admitting Information Admitting Physician Requests: Observation Scripts Amlodipine (Amlodipine) 2.5 Mg Tab 2.5 MG PO DAILY for Blood Pressure Management, #30 TAB 0 Refills Prov: Maylin Edouard DO 04/01/17 Metoprolol Tartrate (Metoprolol Tartrate) 25 Mg Tab 25 MG PO Q12HR for Afib, #60 TAB Prov: Maylin Edouard DO 03/31/17 Montserrat Nur MD Mar 29, 2017 19:13
[2017-03-29] MEDS ORDERED: SODIUM CHLORIDE 0.9% FLUSH 10 ML FLUSH IVF PRN (19:30)
[2017-03-29 19:39] VITALS: RESP 18
[2017-03-29 19:53] LABS: BASOPHIL # 0.1 TH/MM3 (0-0.2); BASOPHIL % 1.3 % (0.0-2.0); EOSINOPHIL # 0.2 TH/MM3 (0-0.4); EOSINOPHIL % 2.1 % (0.0-4.0); HEMATOCRIT 41.6 % (35.0-46.0); HEMO FLAGS DIFF FINAL; LYMPH % 33.8 % (9.0-44.0); LYMPHOCYTE # 2.8 TH/MM3 (1.0-4.8); MEAN CELL VOLUME 87.3 FL (80.0-100.0); MEAN CORPUSCULAR HEMOGLOBIN 28.9 PG (27.0-34.0); MEAN CORPUSCULAR HGB CONC 33.1 % (32.0-36.0); NEUT % 48.8 % (16.0-70.0); PLATELET COUNT 216 TH/MM3 (150-450); RED BLOOD COUNT 4.77 MIL/MM3 (4.00-5.30); RED CELL DISTRIBUTION WIDTH 14.2 % (11.6-17.2); WHITE BLOOD COUNT 8.2 TH/MM3 (4.0-11.0)
[2017-03-29 20:06] LABS: APTT (PATIENT) 40.6 SEC (24.3-30.1); INTERNATIONAL NORMALIZED RATIO 1.5 RATIO; PROTHROMBIN TIME - PATIENT 16.8 SEC (9.8-11.6)
--- NOTE | 2017-03-29 20:06 | RADRPT ---
EXAM DATE/TIME: 03/29/2017 19:41 [facility] COMPARISON: CHEST SINGLE AP, December 10, 2016, 5:20. INDICATIONS : Shortness of breath, weakness. MEDICAL HISTORY : Congestive heart failure. SURGICAL HISTORY : None. ENCOUNTER: Initial ACUITY: 1 day PAIN SCORE: 0/10 LOCATION: Bilateral chest FINDINGS: Moderate right and small left pleural effusions with basilar consolidation seen. Similar findings wer e present back in December. No pneumothorax. Heart size stable, upper limits of normal to mildly enlarged. CONCLUSION: Bilateral effusions with basilar consolidation, or simply on the basis of her current failure. Thomas Whitt MD on March 29, 2017 at 20:04 Board Certified Radiologist. This report was verified electronically.
[2017-03-29 20:12] LABS: BACTERIA, URINE MOD /hpf; BLOOD, URINE TRACE (NEG); COMMENT (UR) CULTURE INDICATED; CULTURE IF INDICATED CULTURE INDICATED; GLUCOSE,URINE NEG (NEG); HYALINE CAST, URINE 2 /lpf (RARE); KETONE, URINE NEG (NEG); SQUAMOUS EPITHELIAL CELL URINE <1 /hpf (0-5); URINE COLOR YELLOW (YELLW/STRAW)
[2017-03-29 20:16] LABS: NITRITE,URINE POS (NEG)
[2017-03-29 20:17] LABS: BICARBONATE 31.6 MEQ/L (21.0-32.0); MAGNESIUM 2.1 MG/DL (1.5-2.5); POTASSIUM 4.1 MEQ/L (3.5-5.1)
[2017-03-29 20:32] LABS: DIGOXIN 1.7 NG/ML (0.8-2.0)
[2017-03-29] MEDS ORDERED: NITROFURANTOIN MONOHYD MACROCR 100 MG CAP PO ONE (21:15)
[2017-03-29] MEDS ORDERED: FUROSEMIDE 40 MG/4 ML VIAL IV PUSH ONE (21:15)
[2017-03-29] MEDS ORDERED: LACTULOSE SYRUP 20 GM/30 ML CUP PO PRN (21:45)
[2017-03-29] MEDS ORDERED: ACETAMINOPHEN/HYDROcodone 325 MG/10 MG TAB PO PRN (21:45)
[2017-03-29] MEDS ORDERED: BISACODYL 10 MG SUPP RECTAL PRN (21:45)
[2017-03-29] MEDS ORDERED: ACETAMINOPHEN/HYDROcodone 325 MG/5 MG TAB PO PRN (21:45)
[2017-03-29] MEDS ORDERED: ACETAMINOPHEN 325 MG TAB PO PRN (21:45)
[2017-03-29] MEDS ORDERED: SENNOSIDES 8.6 MG TAB PO PRN (21:45)
[2017-03-29] MEDS ORDERED: MAGNESIUM HYDROXIDE SUSP 30 ML CUP PO PRN (21:45)
[2017-03-29] MEDS ORDERED: ONDANSETRON HCL 4 MG/2 ML VIAL IVP PRN (21:45)
[2017-03-29] MEDS ORDERED: SODIUM CHLORIDE 0.9% FLUSH 10 ML FLUSH IV FLUSH PRN (21:45)
--- NOTE | 2017-03-29 21:48 | HHI.HP ---
[facility] Unknown Admission Diagnosis Diagnoses: (1) Symptomatic bradycardia Diagnosis: Principal (2) CHF (congestive heart failure) Diagnosis: Principal (3) UTI (urinary tract infection) Diagnosis: Principal Travel History International Travel<30 Days: No Contact w/Intl Traveler <30 Da: No Traveled to Known Affected Are: No History of Present Illness This is an 86-year-old female with a PMH of HTN, A. fib, CHF (Echo 12/10/16 w/ EF 65%) and h/o CVA who was brought to the ER by daughter secondary to generalized weakness. States she's had ongoing fatigue x2 days, also reports episodes of bradycardia w/ HR 30-40's. Follows w/ Dr. Walter, however asymptomatic at that time, instructed to go to ER if pt developed symptoms. Today, daughter notes increasing weakness in addition to episode of SOB. No chest pain, fever, or cough reported. On arrival, BP 135/77, HR 47, O2 sat 96% on RA, Afebrile. CBC unremarkable. Chemistry essentially unremarkable except for GFR 67. Troponin negative. INR 1.5. UA positive for UTI. Digoxin 1.7. CXR with bilateral effusions and basilar consolidation, likely failure. S/p Lasix in ER. Review of Systems Except as stated in HPI: all other systems reviewed are Neg ROS: 14 point review of systems otherwise negative. Past Family Social History Past Medical History PMH: HTN, A. fib, CHF (Echo 12/10/16 w/ EF 65%) and h/o CVA Past Surgical History PAST SURGICAL HISTORY: Appendectomy, Stomach Rye Allergies: Coded Allergies: edoxaban (Unverified Allergy, Severe, Rash, 03/26/17) morphine (Unverified Allergy, Severe, Hives, 03/26/17) Family History PAST FAMILY HISTORY: Reviewed. No h/o DM or CAD Social History PAST SOCIAL HISTORY: Negative for alcohol, tobacco or drugs. Physical Exam Vital Signs Vital Signs Date Time Temp Pulse Resp B/P Pulse Ox O2 Delivery O2 Flow Rate FiO2 03/29/17 19:39 18 03/29/17 19:39 98 Nasal Cannula 2 03/29/17 18:18 97.7 47 18 175/77 96 Physical Exam PE: GENERAL: Elderly female in no acute distress. HEENT: PERRLA, EOMI. No scleral icterus or conjunctival pallor. No lid lag or facial droop. CARDIOVASCULAR: Bradycardic. No obvious murmurs to auscultation. No chest tenderness to palpation. RESPIRATORY: No obvious rhonchi or wheezing. Clear to auscultation. Breath sounds equal bilaterally. GASTROINTESTINAL: Abdomen soft, non-tender, nondistended. BS normal. MUSCULOSKELETAL: Extremities without clubbing, cyanosis, or edema. No obvious deformities. NEUROLOGICAL: Awake, alert and oriented x4. No focal neurologic deficits. Moving both upper and lower extremities spontaneously. Laboratory Laboratory Tests Test 03/29/17 03/29/17 19:30 19:50 White Blood Count 8.2 Red Blood Count 4.77 Hemoglobin 13.8 Hematocrit 41.6 Mean Corpuscular Volume 87.3 Mean Corpuscular Hemoglobin 28.9 Mean Corpuscular Hemoglobin 33.1 Concent Red Cell Distribution Width 14.2 Platelet Count 216 Mean Platelet Volume 10.0 Neutrophils (%) (Auto) 48.8 Lymphocytes (%) (Auto) 33.8 Monocytes (%) (Auto) 14.0 Eosinophils (%) (Auto) 2.1 Basophils (%) (Auto) 1.3 Neutrophils # (Auto) 4.0 Lymphocytes # (Auto) 2.8 Monocytes # (Auto) 1.2 Eosinophils # (Auto) 0.2 Basophils # (Auto) 0.1 CBC Comment DIFF FINAL Differential Comment Prothrombin Time 16.8 Prothromb Time International 1.5 Ratio Activated Partial 40.6 Thromboplast Time Sodium Level 135 Potassium Level 4.1 Chloride Level 99 Carbon Dioxide Level 31.6 Anion Gap 4 Blood Urea Nitrogen 12 Creatinine 0.81 Estimat Glomerular Filtration 67 Rate Random Glucose 85 Calcium Level 8.6 Magnesium Level 2.1 Total Creatine Kinase 43 Troponin I 0.02 Digoxin Level 1.7 Urine Color YELLOW Urine Turbidity HAZY Urine pH 5.0 Urine Specific Lyle 1.009 Urine Protein NEG Urine Glucose (UA) NEG Urine Ketones NEG Urine Occult Blood TRACE Urine Nitrite POS Urine Bilirubin NEG Urine Urobilinogen LESS THAN 2.0 Urine Leukocyte Esterase MOD Urine RBC 6 Urine WBC 51 Urine Squamous Epithelial <1 Cells Urine Bacteria MOD Urine Hyaline Casts 2 Microscopic Urinalysis Comment CULTURE INDICATED Date/Time Procedure Status Source Growth 03/29/17 19:50 Urine Culture Received Urine Clean Catch Pending Result Diagram: 03/29/17192903/29/171929 Assessment and Plan Problem List: (1) Symptomatic bradycardia ICD Code: R00.1 Status: Acute (2) CHF (congestive heart failure) ICD Code: I50.9 Status: Acute (3) UTI (urinary tract infection) ICD Code: N39.0 Status: Acute Assessment and Plan A/P: 1. Symptomatic Bradycardia: HR 40's while in ER, w/ associated SOB and generalized weakness. Initial trop negative, EKG w/ no acute findings. Follows w/ Dr. Walter as outpatient, Dr. Waters consulted by ER physician, recommended to hold Digoxin and decrease Metoprolol to 25mg bid from 50mg bid. Admit to CDU, Telemetry, monitor. 2. CHF: Acute on Chronic, Diastolic. Echo 12/10/16 w/ EF 60%. CXR w/ bilateral effusions, images reviewed by me, s/p Lasix IV in ER, will continue w / diuresis, monitor I/O. 3. UTI: U/a w/ UTI. Start IV Rocephin, caution w/ diuresis. 4. DVT Prophylaxis: Resume home Xarelto 5. Social work for d/c planning as needed. 6. Case discussed w/ ER physician at length. Problem Qualifiers (1) UTI (urinary tract infection): Qualified Code: N39.0 - Urinary tract infection without hematuria, site unspecified Yennifer Mariscal MD Mar 29, 2017 21:48
[2017-03-29 22:28] VITALS: BP 160/72; PULSE 55; RESP 16; O2SAT 96
[2017-03-29 23:12] VITALS: BP 179/73; PULSE 64; RESP 18; TEMP 97.6; O2SAT 97
[2017-03-30] VITALS (8 sets, daily range): BP systolic 145–192; BP diastolic 65–79; PULSE 55–79; RESP 16–18; TEMP 97.6–98; O2SAT 93–98
[2017-03-30] MEDS: cefTRIAXone INJ 1,000 MG in SODIUM CHLORIDE 0.9% INJ 100 ML IV SCH (03:39)
[2017-03-30] MEDS: DOCUSATE SODIUM 50 MG/SENNA 8.6 MG TAB PO SCH ×2 (09:00→20:31)
[2017-03-30 09:20] LABS: AUTOMATED NEUTROPHIL # 3.1 TH/MM3 (1.8-7.7); BASOPHIL # 0.1 TH/MM3 (0-0.2); BASOPHIL % 1.1 % (0.0-2.0); EOSINOPHIL # 0.2 TH/MM3 (0-0.4); HEMATOCRIT 41.5 % (35.0-46.0); HEMO FLAGS DIFF FINAL; LYMPH % 32.4 % (9.0-44.0); MEAN CELL VOLUME 86.3 FL (80.0-100.0); MEAN CORPUSCULAR HEMOGLOBIN 29.3 PG (27.0-34.0); MONO % 13.3 % (0.0-8.0); NEUT % 50.2 % (16.0-70.0); PLATELET COUNT 168 TH/MM3 (150-450); RED BLOOD COUNT 4.81 MIL/MM3 (4.00-5.30); RED CELL DISTRIBUTION WIDTH 14.5 % (11.6-17.2); WHITE BLOOD COUNT 6.2 TH/MM3 (4.0-11.0)
[2017-03-30 09:56] LABS: ALKALINE PHOSPHATASE 129 U/L (45-117); ALT (GPT) 21 U/L (10-53); ANION GAP 7 MEQ/L (5-15); AST (GOT) 24 U/L (15-37); BICARBONATE 31.1 MEQ/L (21.0-32.0); BLOOD UREA NITROGEN 9 MG/DL (7-18); CHLORIDE 101 MEQ/L (98-107); GLOMERULAR FILTRATION RATE 95 ML/MIN (>89); POTASSIUM 3.1 MEQ/L (3.5-5.1); SODIUM (NA) 139 MEQ/L (136-145); TOTAL BILIRUBIN ADULT 0.7 MG/DL (0.2-1.0)
[2017-03-30] MEDS: FUROSEMIDE 40 MG TAB PO SCH (10:55)
[2017-03-30] MEDS: METOPROLOL TARTRATE 25 MG TAB PO SCH ×2 (10:55→20:31)
[2017-03-30] MEDS: RIVAROXABAN 15 MG TAB PO SCH (10:55)
[2017-03-30] MEDS: SODIUM CHLORIDE 0.9% FLUSH 10 ML FLUSH IV FLUSH SCH ×2 (10:56→20:31)
--- NOTE | 2017-03-30 13:00 | MB ---
cc: ANDRE NAYLOR MD DATE OF CONSULTATION: 03/30/2017. REASON FOR CONSULTATION: Symptomatic bradycardia. HISTORY OF PRESENT ILLNESS: The patient is a pleasant 86-year-old woman who sees my colleague, Dr. Walter, for a history of atrial fibrillation maintained on Xarelto, verapamil, metoprolol and digoxin. The patient was living her daughter who found the patient's heart rates to be dipping into the 30s with some symptoms of general fatigue and lightheadedness and thus she was brought the emergency department. Her digoxin has been held and her heart rates have come up into the 50s and low 60s. The patient still feels somewhat lightheaded and vaguely as if she has had several cocktails but denies any specific symptoms such as chest pain or shortness of breath. PAST MEDICAL HISTORY: 1. Atrial fibrillation. 2. Congestive heart failure. 3. CVA. CURRENT MEDICATIONS: 1. Pravachol 10 milligrams at bedtime. 2. Lopressor 25 milligrams q. 12. 3. Lasix 40 milligrams daily. 4. Xarelto 15 milligrams daily. 5. Ceftriaxone. ALLERGIES: 1. . 2. MORPHINE. PHYSICAL EXAMINATION: VITAL SIGNS: Afebrile, pulse 62, respiratory rate 16, blood pressure 150/67, satting 95 on room air. GENERAL: A pleasant elderly woman who does appear older than her stated age. NECK: No jugular venous distention. LUNGS: Clear to auscultation bilaterally. CARDIOVASCULAR: Regular rate and rhythm. A 2-3/6 systolic murmur is appreciated, loudest at the apex. ABDOMEN: Benign. EXTREMITIES: No edema. LABORATORY DATA: Digoxin is 1.7. Sodium 137, potassium 3.1, chloride 101, bicarbonate 31.1, BUN 9, creatinine 0.6, glucose 74. INR is 1.5. White count 6.2, hematocrit 41.5, platelet count 168,000. Urine was consistent with a urinary tract infection. EKGS: EKG showed sinus bradycardia at 45 with nonspecific S-T changes likely due to digoxin. IMPRESSION: 1. Symptomatic bradycardia. The patient likely had symptomatic bradycardia from her multiple AV yovani blocking agents. Her Digoxin has been held as she was on the higher end of the therapeutic range. We will continue with Digoxin washout of her system and observe her on telemetry. If her atrial fibrillation rates are fast with her sinus rates being slow, she may end up requiring a pacemaker for sick sinus syndrome. 2. Lightheadedness. This may be multifactorial as she is currently somewhat foggy in her head but her vitals are adequate. This may be related to her urinary tract infection, which is currently being treated. Further recommendations will be based on her clinical course. Thank you again for the opportunity to participate in this patient's care. MD ERIKA Mcdonnell/LONA /12:05 PM /12:49 PM
--- NOTE | 2017-03-30 14:36 | HHI.PR ---
Subjective Remarks Follow up for symptomatic bradycardia. Patient is currently doing well. Denies any chest pain, shortness of breath, fever, chills. States she feels fine. Objective Vitals Vital Signs Date Time Temp Pulse Resp B/P Pulse Ox O2 Delivery O2 Flow Rate FiO2 03/30/17 11:19 97.6 62 16 150/67 95 03/30/17 07:57 97.9 64 16 153/65 95 03/30/17 05:06 97.6 65 17 153/67 93 03/30/17 04:03 58 03/30/17 00:01 56 03/29/17 23:12 97.6 64 18 179/73 97 03/29/17 22:28 55 16 160/72 96 Room Air 03/29/17 19:39 18 03/29/17 19:39 98 Nasal Cannula 2 03/29/17 18:18 97.7 47 18 175/77 96 Result Diagram: 03/30/17 0744 03/30/17 0744 Imaging Last Impressions Chest X-Ray 03/29/171918 Signed Impressions: Service Date/Time: Wednesday, March 29, 2017 19:41 - CONCLUSION: Bilateral effusions with basilar consolidation, or simply on the basis of her current failure. Thomas Whitt MD Objective Remarks GENERAL: Alert, NAD. SKIN: Warm and dry. HEAD: Normocephalic. EYES: No scleral icterus. No injection or drainage. NECK: Supple, trachea midline. No JVD or lymphadenopathy. CARDIOVASCULAR: Reg Rhythm, bradycardia without murmurs, gallops, or rubs. RESPIRATORY: Breath sounds equal bilaterally. No accessory muscle use. GASTROINTESTINAL: Abdomen soft, non-tender, nondistended. MUSCULOSKELETAL: No cyanosis, or edema. BACK: Nontender without obvious deformity. No CVA tenderness. Procedures None. A/P Problem List: (1) Symptomatic bradycardia ICD Code: R00.1 Status: Acute (2) CHF (congestive heart failure) ICD Code: I50.9 Status: Acute (3) UTI (urinary tract infection) ICD Code: N39.0 Status: Acute Assessment and Plan This is an 86-year-old female with a PMH of HTN, A. fib, CHF (Echo 12/10/16 w/ EF 65%) and h/o CVA who was brought to the ER by daughter secondary to generalized weakness. She had ongoing fatigue x2 days prior to this admission, also reported episodes of bradycardia w/ HR 30-40's. - Symptomatic bradycardia - Atrial fibrillation - Patient's bradycardia is likely AV yovani blocking agents. - Review of medications with daughter indicates - patient was taking: - Metoprolol 50mg BID - Digoxin 0.125mg Qday - Diltiazem 120mg Qday - Verapamil 240mg QHS - Digoxin level was 1.7 (0.8 - 2.0). - Currently patient is only on metoprolol 25mg BID. - Continue Xarelto 15mg Qday. - Probable diastolic CHF EF 60% on 12/10/2016 - Continue Lasix 40mg Qday. - Continue beta eric. - Urinary tract infection - Will continue Ceftriaxone 1g Qday. - Urine Cx shows GNR growth. Full code. Xarelto. Discharge : If heart rate remains within reasonable range and patient is asymptomatic, patient can likely go home on 03/31/2017. Problem Qualifiers (1) UTI (urinary tract infection): Qualified Code: N39.0 - Urinary tract infection without hematuria, site unspecified Maylin Edouard DO Mar 30, 2017 14:36
--- NOTE | 2017-03-30 15:21 | EKG ---
Date Performed: 03/29/2017 Time Performed: 18:28:38 PTAGE: 86 years EKG: SINUS BRADYCARDIA POSSIBLE RIGHT VENTRICULAR CONDUCTION DELAY MODERATE ST DEPRESSION ABNORM AL ECG PREVIOUS TRACING : 12/11/2016 11.40 Compared to previous tracing, previous rhythm appeared to b e atrial fibrillation and patient now in sinus bradycardia. The ST-T changes are slightly more promin ent on this tracing but are nonspecific. DOCTOR: Colby Mendez Interpretating Date/Time 03/30/2017 15:19:56
[2017-03-30] MEDS: PRAVASTATIN SOD 10 MG TAB PO SCH (20:31)
[2017-03-31 03:07] VITALS: BP 149/72; PULSE 73; RESP 18; TEMP 98; O2SAT 95
[2017-03-31] MEDS: cefTRIAXone INJ 1,000 MG in SODIUM CHLORIDE 0.9% INJ 100 ML IV SCH (03:35)
[2017-03-31 07:36] VITALS: BP 166/89; PULSE 53; RESP 16; TEMP 98; O2SAT 94
[2017-03-31] MEDS ORDERED: METO25TA3 PO (07:51)
[2017-03-31] MEDS ORDERED: AMLO5TAB2 PO (07:51)
--- NOTE | 2017-03-31 07:53 | HHI.PR ---
Subjective Remarks Follow up for symptomatic bradycardia. Patient is doing well. No acute concerns. She denies any chest pain, SOB, fever, chills. No dizziness or lightheadedness. Objective Vitals Vital Signs Date Time Temp Pulse Resp B/P Pulse Ox O2 Delivery O2 Flow Rate FiO2 03/31/17 07:36 98.0 53 16 166/89 94 03/31/17 03:07 98.0 73 18 149/72 95 03/30/17 23:48 98.0 69 18 154/65 98 03/30/17 20:07 98.0 79 18 192/79 98 03/30/17 15:05 97.6 55 18 145/65 96 03/30/17 11:19 97.6 62 16 150/67 95 03/30/17 07:57 97.9 64 16 153/65 95 I/O 03/30/17 03/30/17 03/30/17 03/31/17 03/31/17 03/31/17 07:00 15:00 23:00 07:00 15:00 23:00 Intake Total 240 ml Balance 240 ml Intake Oral 240 ml # Voids 2 Result Diagram: 03/30/1744 03/30/1744 Imaging Last Impressions Chest X-Ray 03/29/171918 Signed Impressions: Service Date/Time: Wednesday, March 29, 2017 19:41 - CONCLUSION: Bilateral effusions with basilar consolidation, or simply on the basis of her current failure. Thomas Whitt MD Objective Remarks GENERAL: Alert, NAD. SKIN: Warm and dry. HEAD: Normocephalic. EYES: No scleral icterus. No injection or drainage. NECK: Supple, trachea midline. No JVD or lymphadenopathy. CARDIOVASCULAR: Reg Rate and rhythm without murmurs, gallops, or rubs. RESPIRATORY: Breath sounds equal bilaterally. No accessory muscle use. GASTROINTESTINAL: Abdomen soft, non-tender, nondistended. MUSCULOSKELETAL: No cyanosis, or edema. BACK: Nontender without obvious deformity. No CVA tenderness. Procedures None. A/P Problem List: (1) Symptomatic bradycardia ICD Code: R00.1 - Bradycardia, unspecified Status: Acute (2) CHF (congestive heart failure) ICD Code: I50.9 - Heart failure, unspecified Status: Acute (3) UTI (urinary tract infection) ICD Code: N39.0 - Urinary tract infection, site not specified Status: Acute Assessment and Plan This is an 86-year-old female with a PMH of HTN, A. fib, CHF (Echo 12/10/16 w/ EF 65%) and h/o CVA who was brought to the ER by daughter secondary to generalized weakness. She had ongoing fatigue x2 days prior to this admission, also reported episodes of bradycardia w/ HR 30-40's. - Symptomatic bradycardia - Atrial fibrillation - Patient's bradycardia is likely AV yovani blocking agents. - Review of medications with daughter indicates - patient was taking: - Metoprolol 50mg BID - Digoxin 0.125mg Qday - Diltiazem 120mg Qday - Verapamil 240mg QHS - Digoxin level was 1.7 (0.8 - 2.0). - Metoprolol 25mg BID discontinued by cardiology on 03/31/2017. - Continue Xarelto 15mg Qday. - Probable diastolic CHF EF 60% on 12/10/2016 - Continue Lasix 40mg Qday. - Urinary tract infection - Will continue Ceftriaxone 1g Qday while she is in-patient. - Urine Cx shows Klebsiella - pansensitive. Full code. Xarelto. Discharge : Pending cardiology clearance, likely discharge 04/01/2017. Problem Qualifiers (1) UTI (urinary tract infection): Maylin Edouard DO Mar 31, 2017 07:53
[2017-03-31] MEDS: DOCUSATE SODIUM 50 MG/SENNA 8.6 MG TAB PO SCH ×2 (10:45→21:00)
[2017-03-31] MEDS: FUROSEMIDE 40 MG TAB PO SCH (10:47)
[2017-03-31] MEDS: METOPROLOL TARTRATE 25 MG TAB PO SCH (10:49)
[2017-03-31] MEDS: RIVAROXABAN 15 MG TAB PO SCH (10:50)
[2017-03-31] MEDS: SODIUM CHLORIDE 0.9% FLUSH 10 ML FLUSH IV FLUSH SCH ×2 (10:51→21:00)
[2017-03-31 11:00] VITALS: BP 107/57; PULSE 66; RESP 17; TEMP 97.9; O2SAT 97
[2017-03-31 16:09] VITALS: BP 134/70; PULSE 63; RESP 17; TEMP 98; O2SAT 97
[2017-03-31 20:26] VITALS: BP 127/61; PULSE 78; RESP 18; TEMP 98.5; O2SAT 99
[2017-04-01] VITALS (7 sets, daily range): BP systolic 137–171; BP diastolic 61–77; PULSE 77–88; RESP 16–18; TEMP 97.4–98.8; O2SAT 93–98
[2017-04-01] MEDS: PRAVASTATIN SOD 10 MG TAB PO SCH ×2 (00:48→10:43)
[2017-04-01] MEDS: cefTRIAXone INJ 1,000 MG in SODIUM CHLORIDE 0.9% INJ 100 ML IV SCH (04:25)
[2017-04-01] MEDS ORDERED: AMLO2.5T PO (08:48)
--- NOTE | 2017-04-01 08:50 | HHI.DS ---
Discharge Summary Admission Date Mar 29, 2017 at 21:50 Discharge Date: Apr 01, 2017 Admitting Diagnosis (1) Symptomatic bradycardia ICD Code: R00.1 - Bradycardia, unspecified Diagnosis: Principal Status: Acute (2) CHF (congestive heart failure) ICD Code: I50.9 - Heart failure, unspecified Status: Acute (3) UTI (urinary tract infection) ICD Code: N39.0 - Urinary tract infection, site not specified Status: Acute Procedures None. Brief History - From Admission This is an 86-year-old female with a PMH of HTN, A. fib, CHF (Echo 12/10/16 w/ EF 65%) and h/o CVA who was brought to the ER by daughter secondary to generalized weakness. States she's had ongoing fatigue x2 days, also reports episodes of bradycardia w/ HR 30-40's. Follows w/ Dr. Walter, however asymptomatic at that time, instructed to go to ER if pt developed symptoms. Today, daughter notes increasing weakness in addition to episode of SOB. No chest pain, fever, or cough reported. On arrival, BP 135/77, HR 47, O2 sat 96% on RA, Afebrile. CBC unremarkable. Chemistry essentially unremarkable except for GFR 67. Troponin negative. INR 1.5. UA positive for UTI. Digoxin 1.7. CXR with bilateral effusions and basilar consolidation, likely failure. S/p Lasix in ER. CBC/BMP: 03/30/17 0744 03/30/17 0744 Significant Findings Laboratory Tests Test 03/29/17 19:30 03/29/17 19:50 03/30/17 07:44 Monocytes (%) (Auto) 14.0 % (0.0-8.0) 13.3 % (0.0-8.0) Monocytes # (Auto) 1.2 TH/MM3 (0-0.9) Prothrombin Time 16.8 SEC (9.8-11.6) Activated Partial Thromboplast Time 40.6 SEC (24.3-30.1) Sodium Level 135 MEQ/L (136-145) Anion Gap 4 MEQ/L (5-15) Estimat Glomerular Filtration Rate 67 ML/MIN (>89) Urine Turbidity HAZY (CLEAR) Urine Occult Blood TRACE (NEG) Urine Nitrite POS (NEG) Urine Leukocyte Esterase MOD (NEG) Urine RBC 6 /hpf (0-3) Urine WBC 51 /hpf (0-5) Urine Bacteria MOD /hpf (NONE) Total Protein 5.8 GM/DL (6.4-8.2) Albumin 3.2 GM/DL (3.4-5.0) Alkaline Phosphatase 129 U/L (45-117) Potassium Level 3.1 MEQ/L (3.5-5.1) Imaging Last Impressions Chest X-Ray 03/29/171918 Signed Impressions: Service Date/Time: Saturday, March 29, 2017 19:41 - CONCLUSION: Bilateral effusions with basilar consolidation, or simply on the basis of her current failure. Thomas Whitt MD PE at Discharge GENERAL: Alert, NAD. SKIN: Warm and dry. HEAD: Normocephalic. EYES: No scleral icterus. No injection or drainage. NECK: Supple, trachea midline. No JVD or lymphadenopathy. CARDIOVASCULAR: Reg Rate and rhythm without murmurs, gallops, or rubs. RESPIRATORY: Breath sounds equal bilaterally. No accessory muscle use. GASTROINTESTINAL: Abdomen soft, non-tender, nondistended. MUSCULOSKELETAL: No cyanosis, or edema. BACK: Nontender without obvious deformity. No CVA tenderness. Pt update on day of discharge Patient is currently doing well. No fever, chills. Ambulating well. Daughter at bedside. Hospital Course This is an 86-year-old female with a PMH of HTN, A. fib, CHF (Echo 12/10/16 w/ EF 65%) and h/o CVA who was brought to the ER by daughter secondary to generalized weakness. She had ongoing fatigue x2 days prior to this admission, also reported episodes of bradycardia w/ HR 30-40's. - Symptomatic bradycardia - Atrial fibrillation - Probable sick sinus syndrome. - Patient's bradycardia is likely AV yovani blocking agents. - Review of medications with daughter indicates - patient was taking: - Metoprolol 50mg BID - Digoxin 0.125mg Qday - Diltiazem 120mg Qday - Verapamil 240mg QHS - Digoxin level was 1.7 (0.8 - 2.0). - Metoprolol 25mg BID discontinued by cardiology on 03/31/2017. However, after discussing with Dr. Walter on 04/01/2017, we re-started Metoprolol 25mg BID. Patient may need a pacemaker in future for sick sinus syndrome. - Continue Xarelto 15mg Qday. - Probable diastolic CHF EF 60% on 12/10/2016 - Continue Lasix 40mg Qday. - Urinary tract infection - Patient received Ceftriaxone in the hospital. - Urine Cx shows Klebsiella - pansensitive. - Hypertension - Will start patient on a low dose of Amlodipine 2.5mg Qday, can be titrated up. Full code. Xarelto. Pt Condition on Discharge: Good Discharge Disposition: Discharge Home Discharge Time: > 30 minutes Discharge Instructions DIET: Follow Instructions for: Heart Healthy Diet Activities you can perform: Regular-No Restrictions Follow up Referrals: Cardiology - 1 Week PCP Follow-up - 1 Week New Medications: Amlodipine (Amlodipine) 2.5 Mg Tab 2.5 MG PO DAILY for Blood Pressure Management, #30 TAB 0 Refills Metoprolol Tartrate (Metoprolol Tartrate) 25 Mg Tab 25 MG PO Q12HR for Afib, #60 TAB Continued Medications: Furosemide (Lasix) 40 Mg Tab 40 MG PO DAILY for chf, #30 TAB 0 Refills Potassium Chloride Microencaps (Potassium Chloride Microencaps) 20 Meq Tab 20 MEQ PO DAILY for low K, #30 TAB Pravastatin (Pravastatin) 10 Mg Tab 10 MG PO HS for high cholestrol, #30 TAB Rivaroxaban (Xarelto) 20 Mg Tab 15 MG PO DAILY for Blood Clot Prevention, #30 TAB 0 Refills Discontinued Medications: Digoxin (Digoxin) 0.125 Mg Tab 0.125 MG PO DAILY for heart rythum, #30 TAB Diltiazem CD 24 HR (Cardizem CD 24 HR) 120 Mg Caper 120 MG PO DAILY for heart ryth, #30 CAP 0 Refills Furosemide (Furosemide) 40 Mg Tab 40 MG PO DAILY for chf, #30 TAB Metoprolol Tartrate (Lopressor) 50 Mg Tab 50 MG PO BID for chf, #30 TAB Valsartan (Diovan) 80 Mg Tab 80 MG PO DAILY for htn, #30 TAB Verapamil ER 24 HR (Verapamil ER 24 HR) 240 Mg Tab 240 MG PO HS, #30 TAB 0 Refills Maylin Edouard DO Apr 01, 2017 08:50
[2017-04-01] MEDS ORDERED: amLODIPine BESYLATE 5 MG TAB PO SCH (09:00)
[2017-04-01] MEDS: DOCUSATE SODIUM 50 MG/SENNA 8.6 MG TAB PO SCH (09:00)
--- NOTE | 2017-04-01 09:01 | PD.CARD.PN ---
Subjective Subjective Remarks no cv complaints Afib rate controlled Objective Medications Current Medications Medications (Trade) Dose Ordered Sig/Crescencio Route Start Time Stop Time Status Last Admin (NS Flush) 2 ml UNSCH PRN IV FLUSH 03/29/17 21:45 (NS Flush) 2 ml BID IV FLUSH 03/30/17 09:00 03/31/17 10:51 (Zofran Inj) 4 mg Q6H PRN IVP 03/29/17 21:45 (Tylenol) 650 mg Q6H PRN PO 03/29/17 21:45 (Yermo 5-325 Mg) 1 tab Q4H PRN PO 03/29/17 21:45 (Yermo 10-325 Mg) 1 tab Q4H PRN PO 03/29/17 21:45 (Kim-Colace) 1 tab BID PO 03/30/17 09:00 03/31/17 10:45 (Milk Of Magnesia Liq) 30 ml Q12H PRN PO 03/29/17 21:45 (Senokot) 17.2 mg Q12H PRN PO 03/29/17 21:45 (Dulcolax Supp) 10 mg DAILY PRN RECTAL 03/29/17 21:45 (Lactulose Liq) 30 ml DAILY PRN PO 03/29/17 21:45 (Lasix) 40 mg DAILY PO 03/30/17 09:00 03/31/17 10:47 (Pravachol) 10 mg HS PO 03/30/17 21:00 04/01/17 00:48 (Xarelto) 15 mg DAILY PO 03/30/17 09:00 03/31/17 10:50 Ceftriaxone Sodium 1000 mg/ Sodium Chloride 100 ml @ 200 mls/hr Q24H IV 03/30/17 03:00 04/01/17 04:25 (Norvasc) 2.5 mg DAILY PO 04/01/17 09:00 UNV Vital Signs / I&O Vital Signs Date Time Temp Pulse Resp B/P (MAP) Pulse Ox O2 Delivery O2 Flow Rate FiO2 04/01/17 07:18 98.8 79 16 171/77 (108) 96 04/01/17 04:56 98.0 77 18 151/67 (95) 93 04/01/17 00:40 98.1 77 18 137/61 (86) 94 03/31/17 20:26 98.5 78 18 127/61 (83) 99 03/31/17 16:09 98.0 63 17 134/70 (91) 97 03/31/17 11:00 97.9 66 17 107/57 (74) 97 I/O 03/31/17 03/31/17 03/31/17 04/01/17 04/01/17 04/01/17 07:00 15:00 23:00 07:00 15:00 23:00 Intake Total 240 ml 200 ml Balance 240 ml 200 ml Intake Oral 240 ml 200 ml # Voids 2 Physical Exam GENERAL: Well-nourished, well-developed patient. SKIN: Warm and dry. HEAD: Normocephalic. EYES: No scleral icterus. No injection or drainage. NECK: Supple, trachea midline. No JVD or lymphadenopathy. CARDIOVASCULAR: Irr Irr without murmurs, gallops, or rubs. RESPIRATORY: Breath sounds equal bilaterally. No accessory muscle use. GASTROINTESTINAL: Abdomen soft, non-tender, nondistended. EXTREMITIES: No cyanosis, or edema. NEUROLOGICAL: Awake, alert, and oriented x 3. Non-focal. Laboratory Current Medications Medications (Trade) Dose Ordered Sig/Crescencio Route Start Time Stop Time Status Last Admin (NS Flush) 2 ml UNSCH PRN IV FLUSH 03/29/17 21:45 (NS Flush) 2 ml BID IV FLUSH 03/30/17 09:00 03/31/17 10:51 (Zofran Inj) 4 mg Q6H PRN IVP 03/29/17 21:45 (Tylenol) 650 mg Q6H PRN PO 03/29/17 21:45 (Yermo 5-325 Mg) 1 tab Q4H PRN PO 03/29/17 21:45 (Yermo 10-325 Mg) 1 tab Q4H PRN PO 03/29/17 21:45 (Kim-Colace) 1 tab BID PO 03/30/17 09:00 03/31/17 10:45 (Milk Of Magnesia Liq) 30 ml Q12H PRN PO 03/29/17 21:45 (Senokot) 17.2 mg Q12H PRN PO 03/29/17 21:45 (Dulcolax Supp) 10 mg DAILY PRN RECTAL 03/29/17 21:45 (Lactulose Liq) 30 ml DAILY PRN PO 03/29/17 21:45 (Lasix) 40 mg DAILY PO 03/30/17 09:00 03/31/17 10:47 (Pravachol) 10 mg HS PO 03/30/17 21:00 04/01/17 00:48 (Xarelto) 15 mg DAILY PO 03/30/17 09:00 03/31/17 10:50 Ceftriaxone Sodium 1000 mg/ Sodium Chloride 100 ml @ 200 mls/hr Q24H IV 03/30/17 03:00 04/01/17 04:25 (Norvasc) 2.5 mg DAILY PO 04/01/17 09:00 UNV Assessment and Plan Problem List: (1) Atrial fibrillation with RVR ICD Codes: I48.91 - Unspecified atrial fibrillation Status: Chronic Assessment and Plan Restart Lopressor 25mg PO BID Cont OAC Stable from CV standpoint to d/c home today Kwadwo Keller MD Apr 01, 2017 09:01
[2017-04-01] MEDS: FUROSEMIDE 40 MG TAB PO SCH (10:42)
[2017-04-01] MEDS: RIVAROXABAN 15 MG TAB PO SCH (10:47)
== END 2017-04-01 14:13 | disposition home or self-care (01) ==
LOC: NEPE 18:10 → NEDA 21:50 → NEPHCDU 22:52
PROVIDERS: ADMIT Hospitalist; ATTEND Hospitalist
DX: R00.1 Bradycardia, unspecified (principal); I50.33 Acute on chronic diastolic (congestive) heart failure; I11.0 Hypertensive heart disease with heart failure; N39.0 Urinary tract infection, site not specified; B96.1 Klebsiella pneumoniae [K. pneumoniae] as the cause of diseases classified elsewhere; I48.91 Unspecified atrial fibrillation; R42 Dizziness and giddiness; Z86.73 Personal history of transient ischemic attack (TIA), and cerebral infarction without residual deficits; Z79.01 Long term (current) use of anticoagulants; Z79.899 Other long term (current) drug therapy
CPT/HCPCS: 71010; 80048; 80053; 80162; 81001; 82550; 83735; 84484; 85025; 85610; 85730; 87077; 87086; 87186; 93005; 96374; 99285; G0378; J0696; J1940